=== PATIENT | male | born 1945 | race Caucasian/White ===

== ENCOUNTER 2017-08-07 08:51 | Emergency (ER) | payer MEDICARE, BC ==
[2017-08-07 09:06] VITALS: BP 153/74
[2017-08-07] MEDS ORDERED: Sodium Chloride 0.9% 1,000 ML IV SCH (09:30)
[2017-08-07] MEDS ORDERED: Ondansetron 4 MG/2 ML SDV IVPUSH ONE (09:30)
[2017-08-07] MEDS ORDERED: Sodium Chloride 0.9% 10 ML Syringe FLUSH PRN (09:30)
--- NOTE | 2017-08-07 09:48 | EDM.PDOC ---
ED HPI GENERAL MEDICAL PROBLEM - General Chief Complaint: Back Pain or Injury Stated Complaint: POSSIBLE KINDNEY STONE OR INFECTION Time Seen by Provider: 08/07/17 09:19 Source of Information: Reports: Patient History Limitations: Reports: No Limitations - History of Present Illness INITIAL COMMENTS - FREE TEXT/NARRATIVE: The patient presents with left flank pain. This has been going on for about 1 week. The pain does not radiate anywhere. He has some nausea with it but he does not have any vomiting. He has no dysuria or hematuria. He has had kidney stones before but he says this feels different. He is lightheaded at times and he has a subjective fever and chills. He has decreased appetite. He denies chest pain or shortness of breath. Onset: Gradual Duration: Week(s): (1) Location: Reports: Back (Left flank) Quality: Reports: Sharp Severity: Mild Improves with: Reports: None Worsens with: Reports: None Associated Symptoms: Reports: Fever/Chills, Nausea/Vomiting. Denies: Chest Pain , Shortness of Breath Treatments CERTIFIED MORTICIAN: Reports: Other (see below) Other Treatments CERTIFIED MORTICIAN: oxycodone Left Flank Pain Score (Numeric/FACES): 9 - Related Data Allergies Allergy/AdvReac Type Severity Reaction Status Date / Time Sulfa (Sulfonamide Allergy Rash Verified 08/07/17 09:44 Antibiotics) Home Meds: Home Meds oxyCODONE HCl/Acetaminophen [Percocet 5-325 mg Tablet] 1 - 2 each PO Q4H PRN # 24 tablet 02/10/16 [Rx] Aspirin [Ecotrin] 81 mg PO DAILY 02/15/16 [History] Clopidogrel [Plavix] 75 mg PO DAILY 02/15/16 [History] Metoprolol Succinate 200 mg PO DAILY 02/15/16 [History] Ramipril 10 mg PO DAILY 02/15/16 [History] amLODIPine [Norvasc] 5 mg PO DAILY 02/15/16 [History] atorvaSTATin Calcium [Atorvastatin Calcium] 80 mg PO DAILY 02/15/16 [History] Omeprazole Magnesium [Prilosec Otc] 20 mg PO DAILY 03/16/16 [History] Tamsulosin [Flomax] 0.4 mg PO DAILY 03/16/16 [History] Finasteride [Proscar] 5 mg PO DAILY 10/10/17 [History] Past Medical History HEENT History: Reports: Impaired Vision, Other (See Below) Other HEENT History: wears glasses Cardiovascular History: Reports: Hypertension Respiratory History: Reports: Sleep Apnea Gastrointestinal History: Reports: Chronic Constipation, GERD, Other (See Below) Other Gastrointestinal History: abnormal liver ultrasound, increased bilirubin Genitourinary History: Reports: Renal Calculus Neurological History: Reports: Other (See Below) Other Neuro History: bain's palsy Psychiatric History: Reports: Other (See Below) Other Psychiatric History: insomnia - Past Surgical History Cardiovascular Surgical History: Reports: Coronary Artery Stent Male Surgical History: Reports: Lithotripsy (ESWL), Ureteral Stent Social & Family History - Family History Family Medical History: Noncontributory - Tobacco Use Smoking Status *Q: Never Smoker - Caffeine Use Caffeine Use: Reports: Coffee, Soda - Recreational Drug Use Recreational Drug Use: No - Living Situation & Occupation Living situation: Reports: Occupation: Retired ED ROS GENERAL - Review of Systems Review Of Systems: See Below Constitutional: Reports: Fever, Chills HEENT: Reports: No Symptoms Respiratory: Reports: No Symptoms Cardiovascular: Reports: Lightheadedness. Denies: Chest Pain Endocrine: Reports: No Symptoms GI/Abdominal: Reports: Nausea. Denies: Abdominal Pain, Diarrhea, Vomiting : Reports: No Symptoms Musculoskeletal: Reports: No Symptoms ED EXAM,LOWER BACK PAIN/INJURY - Physical Exam Exam: See Below Exam Limited By: No Limitations General Appearance: Alert, No Apparent Distress Ears: Normal External Exam Nose: Normal Inspection Head: Atraumatic, Normocephalic Neck: Normal Inspection Respiratory/Chest: No Respiratory Distress, Lungs Clear, Normal Breath Sounds Cardiovascular: Regular Rate, Rhythm, No Edema, No Murmur GI/Abdominal: Soft, Non-Tender, No Organomegaly, No Mass Back Exam: Other (No CVA tenderness) Extremities: Normal Inspection Course - Vital Signs Last Recorded V/S: Last Vital Signs Temp 97.4 F 08/07/17 08:58 Pulse 66 08/07/17 08:58 Resp 12 08/07/17 08:58 BP 153/74 H 08/07/17 08:58 Pulse Ox 99 08/07/17 08:58 - Orders/Labs/Meds Orders: Active Orders 24 hr Category Date Time Status Peripheral IV Care [RC] . DIRECTED Care 08/07/17 09:31 Active Sodium Chloride 0.9% [Normal Saline] 1,000 ml Med 08/07/17 09:30 Active IV ASDIRECTED Sodium Chloride 0.9% [Saline Flush] Med 08/07/17 09:30 Active 10 ml FLUSH ASDIRECTED PRN ED Antiemetic Medication Reflex [OM.PC] Stat Oth 08/07/17 09:30 Ordered Peripheral IV Insertion Adult [OM.PC] Stat Oth 08/07/17 09:30 Ordered Medication Orders Sodium Chloride (Normal Saline) 1,000 mls @ 125 mls/hr IV ASDIRECTED KEATON Last Admin: 08/07/17 10:05 Dose: 125 mls/hr Sodium Chloride (Saline Flush) 10 ml FLUSH ASDIRECTED PRN PRN Reason: Keep Vein Open Last Admin: 08/07/17 10:05 Dose: 10 ml Labs: Laboratory Tests 08/07/17 08/07/17 08/07/17 Range/Units 09:05 09:05 11:05 WBC 6.33 (4.23-9.07) K/mm3 RBC 4.50 L (4.63-6.08) M/mm3 Hgb 14.6 (13.7-17.5) gm/L Hct 42.4 (40.1-51.0) % MCV 94.2 H (79.0-92.2) fl MCH 32.4 H (25.7-32.2) pg MCHC 34.4 (32.2-35.5) g/dl RDW Std Deviation 45.2 H (35.1-43.9) fL Plt Count 127 L (163-337) K/mm3 MPV 10.3 (9.4-12.3) fl Neut % (Auto) 73.6 H (34.0-67.9) % Lymph % (Auto) 11.7 L (21.8-53.1) % Carbon % (Auto) 13.6 H (5.3-12.2) % Eos % (Auto) 0.6 L (0.8-7.0) Baso % (Auto) 0.2 (0.1-1.2) % Neut # (Auto) 4.66 (1.78-5.38) K/mm3 Lymph # (Auto) 0.74 L (1.32-3.57) K/mm3 Carbon # (Auto) 0.86 H (0.30-0.82) K/mm3 Eos # (Auto) 0.04 (0.04-0.54) K/mm3 Baso # (Auto) 0.01 (0.01-0.08) K/mm3 Sodium 140 (136-145) mEq/L Potassium 4.0 (3.5-5.1) mEq/L Chloride 102 (98-107) mEq/L Carbon Dioxide 27 (21-32) mEq/L Anion Gap 15.0 (5-15) BUN 13 (7-18) mg/dL Creatinine 1.4 H (0.7-1.3) mg/dL Est Cr Clr Drug Dosing 44.59 mL/min Estimated GFR (MDRD) 50 (>60) mL/min BUN/Creatinine Ratio 9.3 L (14-18) Glucose 130 H (83-115) mg/dL Calcium 9.0 (8.5-10.1) mg/dL Total Bilirubin 7.1 H (0.2-1.0) mg/dL AST 27 (15-37) U/L ALT 32 (16-63) U/L Alkaline Phosphatase 113 (46-116) U/L Total Protein 7.0 (6.4-8.2) g/dl Albumin 4.1 (3.4-5.0) g/dl Globulin 2.9 gm/dL Albumin/Globulin Ratio 1.4 (1-2) Lipase 135 (73-393) U/L Urine Color Yellow (Yellow) Urine Appearance Clear (Clear) Urine pH 6.0 (5.0-8.0) Ur Specific [place] 1.020 (1.005-1.030) Urine Protein Negative (Negative) Urine Glucose (UA) Negative (Negative) Urine Ketones Negative (Negative) Urine Occult Blood Negative (Negative) Urine Nitrite Negative (Negative) Urine Bilirubin Negative (Negative) Urine Urobilinogen 1.0 (0.2-1.0) Ur Leukocyte Esterase Negative (Negative) Urine RBC Not seen (0-5) /hpf Urine WBC 0-5 (0-5) /hpf Ur Epithelial Cells 0-5 (0-5) /hpf Urine Bacteria Few (FEW) /hpf Urine Mucus Many H (FEW) /hpf Meds: Medications Generic Name Dose Route Start Last Admin Trade Name Freq PRN Reason Stop Dose Admin Sodium Chloride 1,000 mls @ 125 mls/hr 08/07/17 09:30 08/07/17 10:05 Normal Saline IV 125 mls/hr ASDIRECTED KEATON Administration Sodium Chloride 10 ml 08/07/17 09:30 08/07/17 10:05 Saline Flush FLUSH 10 ml ASDIRECTED PRN Administration Keep Vein Open Discontinued Medications Generic Name Dose Route Start Last Admin Trade Name Alfonso PRN Reason Stop Dose Admin Ondansetron HCl 4 mg 08/07/17 09:30 08/07/17 10:08 Zofran IVPUSH 08/07/17 09:31 4 mg ONETIME ONE Administration - Re-Assessments/Exams Free Text/Narrative Re-Assessment/Exam: 08/07/17 09:49 I ordered an IV NS at 125mL/hr, zofran 4mg IV, labs, UA and a CT of his abdomen and pelvis. 08/07/17 12:55 His CBC looks good. His creatinine was elevated slightly at 1.4. His glucose was elevated at 130. His UA shows no UTI. His CT shows a nonobstructing calculi within the right kidney. No ureteral dilatation or ureteral stone is seen on either side. 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 Stable cyst within the left kidney measuring 6.7cm. Spleen length is generous at 15.5cm which is stable back to CT exam of 01/17/16. Nothing acute is appreciated on noncontrast CT study of the abdomen and pelvis. He feels better. This appears to be muscle pain. I will discharge him home. Departure - Departure Time of Disposition: 13:10 Disposition: Home, Self-Care 01 Condition: Good Clinical Impression: Back pain Qualifiers: Back pain location: low back pain Chronicity: acute Back pain laterality: left Sciatica presence: without sciatica Qualified Code(s): M54.5 - Low back pain - Discharge Information Referrals: PCP,None [Primary Care Provider] - Gladis Smith PA [Physician Product Sales Engineer] - 1 Week Forms: ED Department Discharge Additional Instructions: Take your medicine as prescribed. Follow up with Gladis Smith in our clinic in 1 week. Please return if you are worse. - My Orders Last 24 Hours: My Active Orders 08/07/17 09:30 Sodium Chloride 0.9% [Normal Saline] 1,000 ml IV ASDIRECTED Sodium Chloride 0.9% [Saline Flush] 10 ml FLUSH ASDIRECTED PRN ED Antiemetic Medication Reflex [OM.PC] Stat Peripheral IV Insertion Adult [OM.PC] Stat 08/07/17 09:31 Peripheral IV Care [RC] . DIRECTED - Assessment/Plan Last 24 Hours: My Active Orders 08/07/17 09:30 Sodium Chloride 0.9% [Normal Saline] 1,000 ml IV ASDIRECTED Sodium Chloride 0.9% [Saline Flush] 10 ml FLUSH ASDIRECTED PRN ED Antiemetic Medication Reflex [OM.PC] Stat Peripheral IV Insertion Adult [OM.PC] Stat 08/07/17 09:31 Peripheral IV Care [RC] . DIRECTED
--- NOTE | 2017-08-07 11:03 | CT ---
CT abdomen and pelvis Technique: Multiple axial sections were obtained from above the dome of the diaphragm inferiorly through the pubic symphysis. Intravenous and oral contrast not utilized. Study has been performed as a ureteral stone protocol. Comparison: Previous CT abdomen and pelvis exam of 02/10/16. Findings: Right kidney shows multiple nonobstructing calculi. Largest nonobstructing calculi on the right side measures approximately 4 mm. Left kidney shows no obstructing calculi. Left kidney shows a cyst measuring 6.7 cm. No ureteral dilatation is seen on either side. No ureteral calculi are seen on either side. Small portion of the visualized lung bases shows nothing acute. Noncontrast appearance of the liver and spleen appear within normal limits. Spleen is generous in size with length of 15.5 cm. This measurement appears as a stable finding back to CT study of 01/17/16. Left adrenal mass is identified. This has negative Hounsfield unit measurements compatible with benign adenoma measuring about 2.6 cm in size. Right adrenal gland is unremarkable. Pancreas is within normal limits. Gallbladder shows no calcified gallstones. Aorta shows atherosclerotic calcification without aneurysmal dilatation. No mesenteric abnormalities are seen. No pelvic mass or adenopathy is seen. No free fluid or inflammatory change is seen. Bone window settings were reviewed which shows mild scattered degenerative change within the spine. Impression: 1. Nonobstructing calculi within the right kidney. No ureteral dilatation or ureteral stone is seen on either side. 2. 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 3. Stable cyst within the left kidney measuring 6.7 cm. 4. Spleen length is generous at 15.5 cm which is stable back to CT exam of 01/17/16. 5. Nothing acute is appreciated on noncontrast CT study of the abdomen and pelvis. Diagnostic code #3
== END 2017-08-07 13:36 | disposition home or self-care (01) ==
LOC: JD.ED 08:51
DX: M54.5 Low back pain (principal); N20.0 Calculus of kidney; I10 Essential (primary) hypertension; G47.30 Sleep apnea, unspecified; K21.9 Gastro-esophageal reflux disease without esophagitis; Z95.5 Presence of coronary angioplasty implant and graft; Z96.0 Presence of urogenital implants; Z98.890 Other specified postprocedural states; Z79.82 Long term (current) use of aspirin; Z79.02 Long term (current) use of antithrombotics/antiplatelets; Z79.899 Other long term (current) drug therapy; Z88.2 Allergy status to sulfonamides
CPT/HCPCS: 36415; 74176; 80053; 81001; 83690; 85025; 96361; 96374; 99284; J2405; J7040; J7050

== ENCOUNTER 2017-09-21 04:53 | Emergency (ER) | payer MEDICARE, BC ==
[2017-09-21 05:14] VITALS: BP 155/81
--- NOTE | 2017-09-21 08:02 | EDM.PDOC ---
ED HPI GENERAL MEDICAL PROBLEM - General Chief Complaint: Neuro Symptoms/Deficits Stated Complaint: LOSS OF FEELING IN HAND AND CONFUSED Time Seen by Provider: 09/21/17 08:06 - History of Present Illness INITIAL COMMENTS - FREE TEXT/NARRATIVE: 71-year-old male brought into the emergency room by his daughter was confusion. This was noticed about 3 hours ago the patient was having a hard time reaching for a light switch. He had questionable change in speech this was short-lived and that he seemed to get better but not quite to baseline. 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 The patient has had intermittent bouts of confusion in the past really the cause of this has never been identified. During this he did complain of a mild headache and he still has a mild headache. He has not had any vision changes no ringing or buzzing in his ears. Headache Pain Score (Numeric/FACES): 5 - Related Data Allergies Allergy/AdvReac Type Severity Reaction Status Date / Time Sulfa (Sulfonamide Allergy Rash Verified 08/07/17 09:44 Antibiotics) Home Meds: Home Meds Aspirin [Ecotrin] 81 mg PO DAILY 02/15/16 [History] Clopidogrel [Plavix] 75 mg PO DAILY 02/15/16 [History] Metoprolol Succinate 200 mg PO DAILY 02/15/16 [History] Ramipril 10 mg PO DAILY 02/15/16 [History] atorvaSTATin Calcium [Atorvastatin Calcium] 80 mg PO DAILY 02/15/16 [History] Omeprazole Magnesium [Prilosec Otc] 20 mg PO DAILY 03/16/16 [History] Past Medical History HEENT History: Reports: Impaired Vision, Other (See Below) Other HEENT History: wears glasses Cardiovascular History: Reports: Hypertension, Stents Respiratory History: Reports: Sleep Apnea Gastrointestinal History: Reports: Chronic Constipation, GERD, Other (See Below) Other Gastrointestinal History: abnormal liver ultrasound, increased bilirubin Genitourinary History: Reports: Renal Calculus Neurological History: Reports: Other (See Below) Other Neuro History: bain's palsy Psychiatric History: Reports: Other (See Below) Other Psychiatric History: insomnia - Past Surgical History Cardiovascular Surgical History: Reports: Coronary Artery Stent Male Surgical History: Reports: Lithotripsy (ESWL), Ureteral Stent Social & Family History - Family History Family Medical History: Noncontributory - Tobacco Use Smoking Status *Q: Never Smoker - Caffeine Use Caffeine Use: Reports: Coffee, Soda - Recreational Drug Use Recreational Drug Use: No - Living Situation & Occupation Living situation: Reports: Occupation: Retired ED ROS GENERAL - Review of Systems Review Of Systems: See Below Constitutional: Reports: No Symptoms. Denies: Fever, Chills HEENT: Reports: No Symptoms Respiratory: Reports: No Symptoms Cardiovascular: Reports: No Symptoms GI/Abdominal: Reports: No Symptoms. Denies: Abdominal Pain, Nausea, Vomiting : Reports: No Symptoms Musculoskeletal: Reports: No Symptoms, Other (He has his chronic left-sided leg weakness) Neurological: Reports: Confusion, Headache Psychiatric: Reports: No Symptoms ED EXAM, NEURO - Physical Exam Exam: See Below Exam Limited By: No Limitations General Appearance: Alert, No Apparent Distress, Other (Normal vitals other than a mildly elevated blood pressure he is alert and oriented) Eye Exam: Bilateral Eye: EOMI, Normal Inspection, PERRL Ears: Normal External Exam, Normal Canal, Hearing Grossly Normal, Normal TMs Nose: Normal Inspection, Normal Mucosa, No Blood Throat/Mouth: Normal Inspection, Normal Lips, Normal Gums, Normal Oropharynx, Normal Voice, No Airway Compromise Head Exam: Atraumatic, Normocephalic Neck: Normal Inspection, Supple, Non-Tender, Full Range of Motion. No: Lymphadenopathy (L), Lymphadenopathy (R) Respiratory/Chest: No Respiratory Distress, Lungs Clear, Normal Breath Sounds Cardiovascular: Regular Rate, Rhythm, No Edema, No Murmur GI/Abdominal: Normal Bowel Sounds, Soft, Non-Tender Neurological: Normal Mood/Affect, Other (He has weakness in his left lower extremity however he can hold it up against gravity and against some resistance right leg is normal right upper extremities are equal and appropriate in all muscle groups deep tendon reflexes the brachial radialis are equal and appropriate cranial nerves II through XII grossly intact. Basically this gentleman has a normal neurologic exam except for his chronic weakness in his left leg) Back Exam: Normal Inspection. No: CVA Tenderness (L), CVA Tenderness (R) Extremities: Normal Inspection, No Pedal Edema Psychiatric: Normal Affect, Normal Mood Course - Vital Signs Last Recorded V/S: Last Vital Signs Temp 36.2 C 09/21/17 05:05 Pulse 76 09/21/17 05:05 Resp 15 09/21/17 05:05 BP 155/81 H 09/21/17 05:05 Pulse Ox 98 09/21/17 05:05 - Orders/Labs/Meds Orders: Active Orders 24 hr Category Date Time Status EKG Documentation Completion [RC] ASDIRECTED Care 09/21/17 05:00 Active Chest 1V Frontal [CR] Stat Exams 09/21/17 06:02 Taken Head wo Cont [CT] Stat Exams 09/21/17 05:18 Taken Labs: Laboratory Tests 09/21/17 09/21/17 09/21/17 Range/Units 05:04 05:04 05:04 WBC 9.79 H (4.23-9.07) K/mm3 RBC 4.50 L (4.63-6.08) M/mm3 Hgb 14.7 (13.7-17.5) gm/L Hct 42.5 (40.1-51.0) % MCV 94.4 H (79.0-92.2) fl MCH 32.7 H (25.7-32.2) pg MCHC 34.6 (32.2-35.5) g/dl RDW Std Deviation 46.1 H (35.1-43.9) fL Plt Count 215 (163-337) K/mm3 MPV 11.0 (9.4-12.3) fl Neutrophils % (Manual) 77 H (40-60) % Band Neutrophils % 0 (0-10) % Lymphocytes % (Manual) 19 L (20-40) % Atypical Lymphs % 0 % Monocytes % (Manual) 3 (2-10) % Eosinophils % (Manual) 1 (0.8-7.0) % Basophils % (Manual) 0 L (0.2-1.2) Platelet Estimate Adequate Plt Morphology Comment Normal RBC Morph Comment Normal PT 10.8 (8.0-13.0) SECONDS INR 0.99 APTT 24 (22-36) SECONDS Sodium 137 (136-145) mEq/L Potassium 4.3 (3.5-5.1) mEq/L Chloride 102 (98-107) mEq/L Carbon Dioxide 26 (21-32) mEq/L Anion Gap 13.3 (5-15) BUN 16 (7-18) mg/dL Creatinine 1.3 (0.7-1.3) mg/dL Est Cr Clr Drug Dosing 48.02 mL/min Estimated GFR (MDRD) 54 (>60) mL/min BUN/Creatinine Ratio 12.3 L (14-18) Glucose 131 H (83-115) mg/dL POC Glucose (83-110) mg/dL Calcium 9.6 (8.5-10.1) mg/dL Total Bilirubin 3.2 H (0.2-1.0) mg/dL AST 25 (15-37) U/L ALT 37 (16-63) U/L Alkaline Phosphatase 91 (46-116) U/L Troponin I < 0.017 (0.00-0.056) ng/mL Total Protein 6.9 (6.4-8.2) g/dl Albumin 4.0 (3.4-5.0) g/dl Globulin 2.9 gm/dL Albumin/Globulin Ratio 1.4 (1-2) Urine Color (Yellow) Urine Appearance (Clear) Urine pH (5.0-8.0) Ur Specific [place] (1.005-1.030) Urine Protein (Negative) Urine Glucose (UA) (Negative) Urine Ketones (Negative) Urine Occult Blood (Negative) Urine Nitrite (Negative) Urine Bilirubin (Negative) Urine Urobilinogen (0.2-1.0) Ur Leukocyte Esterase (Negative) Urine RBC (0-5) /hpf Urine WBC (0-5) /hpf Ur Epithelial Cells (0-5) /hpf Urine Bacteria (FEW) /hpf Urine Mucus (FEW) /hpf 09/21/17 09/21/17 Range/Units 05:05 06:41 WBC (4.23-9.07) K/mm3 RBC (4.63-6.08) M/mm3 Hgb (13.7-17.5) gm/L Hct (40.1-51.0) % MCV (79.0-92.2) fl MCH (25.7-32.2) pg MCHC (32.2-35.5) g/dl RDW Std Deviation (35.1-43.9) fL Plt Count (163-337) K/mm3 MPV (9.4-12.3) fl Neutrophils % (Manual) (40-60) % Band Neutrophils % (0-10) % Lymphocytes % (Manual) (20-40) % Atypical Lymphs % % Monocytes % (Manual) (2-10) % Eosinophils % (Manual) (0.8-7.0) % Basophils % (Manual) (0.2-1.2) Platelet Estimate Plt Morphology Comment RBC Morph Comment PT (8.0-13.0) SECONDS INR APTT (22-36) SECONDS Sodium (136-145) mEq/L Potassium (3.5-5.1) mEq/L Chloride (98-107) mEq/L Carbon Dioxide (21-32) mEq/L Anion Gap (5-15) BUN (7-18) mg/dL Creatinine (0.7-1.3) mg/dL Est Cr Clr Drug Dosing mL/min Estimated GFR (MDRD) (>60) mL/min BUN/Creatinine Ratio (14-18) Glucose (83-115) mg/dL POC Glucose 132 H (83-110) mg/dL Calcium (8.5-10.1) mg/dL Total Bilirubin (0.2-1.0) mg/dL AST (15-37) U/L ALT (16-63) U/L Alkaline Phosphatase (46-116) U/L Troponin I (0.00-0.056) ng/mL Total Protein (6.4-8.2) g/dl Albumin (3.4-5.0) g/dl Globulin gm/dL Albumin/Globulin Ratio (1-2) Urine Color Light yellow (Yellow) Urine Appearance Clear (Clear) Urine pH 7.0 (5.0-8.0) Ur Specific [place] 1.020 (1.005-1.030) Urine Protein Negative (Negative) Urine Glucose (UA) Negative (Negative) Urine Ketones Negative (Negative) Urine Occult Blood Negative (Negative) Urine Nitrite Negative (Negative) Urine Bilirubin Negative (Negative) Urine Urobilinogen 0.2 (0.2-1.0) Ur Leukocyte Esterase Negative (Negative) Urine RBC 0-5 (0-5) /hpf Urine WBC 0-5 (0-5) /hpf Ur Epithelial Cells 0-5 (0-5) /hpf Urine Bacteria Rare (FEW) /hpf Urine Mucus Not seen (FEW) /hpf - Re-Assessments/Exams Free Text/Narrative Re-Assessment/Exam: 09/21/17 08:06 CT unremarkable EKG shows no acute changes chest x-ray unremarkable laboratory evaluation other than some mild hyperglycemia is non-suggestive. I discussed this with the patient and his daughter and told him I don't know what caused his confusion I cannot exclude a TIA. Did offer hospitalization however this is declined. They do agree to return to the emergency room with any questions or problems. Departure - Departure Time of Disposition: 08:07 Disposition: Home, Self-Care 01 Clinical Impression: Transient confusion - Discharge Information Referrals: Gladis Smith PA [Primary Care Provider] - Forms: ED Department Discharge Additional Instructions: Return to emergency room with any questions problems or worsening symptoms. Follow-up in the clinic on Sunday for recheck. Continue your routine medications. - My Orders Last 24 Hours: My Active Orders 09/21/17 05:00 EKG Documentation Completion [RC] ASDIRECTED 09/21/17 05:18 Head wo Cont [CT] Stat 09/21/17 06:02 Chest 1V Frontal [CR] Stat - Assessment/Plan Last 24 Hours: My Active Orders 09/21/17 05:00 EKG Documentation Completion [RC] ASDIRECTED 09/21/17 05:18 Head wo Cont [CT] Stat 09/21/17 06:02 Chest 1V Frontal [CR] Stat
--- NOTE | 2017-09-21 14:35 | CT ---
Head CT Technique: Multiple axial sections through the brain were obtained. Intravenous contrast was not utilized. Comparison: Previous head CT study of 01/01/16. Findings: Ventricles along with basal cisterns and sulci over the convexities are mildly prominent. Mild diminished density noted within the periventricular white matter. 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 No other abnormal parenchymal densities are seen. No evidence of intracranial hemorrhage. No midline shift or mass effect is seen. Bone window settings were reviewed which show no significant paranasal sinus finding. No acute calvarial abnormality is seen. Impression: 1. Mild senescent change as noted above. No acute intracranial abnormality is identified. Diagnostic code #2 I agree with preliminary report issued by [facility] ([facility] report finalized on 09/21/17, 6:37 AM Central Time)
--- NOTE | 2017-09-21 14:35 | CR ---
Chest: Portable view of the chest was obtained. Comparison: Prior chest x-ray of 08/30/17. Heart size is normal. Mild tortuosity of the thoracic aorta is seen. Lungs are clear. Minimal scoliosis is noted within the spine. Impression: 1. Nothing acute is identified on portable chest x-ray. Diagnostic code #2
== END 2017-09-21 08:27 | disposition home or self-care (01) ==
LOC: JD.ED 04:53
DX: R41.0 Disorientation, unspecified (principal); I10 Essential (primary) hypertension; K21.9 Gastro-esophageal reflux disease without esophagitis; Z79.02 Long term (current) use of antithrombotics/antiplatelets; Z79.82 Long term (current) use of aspirin; Z79.899 Other long term (current) drug therapy; Z88.2 Allergy status to sulfonamides
CPT/HCPCS: 36415; 70450; 70450-26; 71010; 71010-26; 80053; 81001; 82962; 84484; 85025; 85610; 85730; 93005; 93010; 99284; 99285-25

== ENCOUNTER 2019-08-24 08:05 | Emergency (ER) | payer MEDICARE, BC ==
[2019-08-24 08:12] VITALS: BP 195/94; PULSE 63
--- NOTE | 2019-08-24 08:14 | EDM.PDOC ---
ED HPI GENERAL MEDICAL PROBLEM - General Chief Complaint: Chest Pain Stated Complaint: WEAKNESS ARM TINGLE Time Seen by Provider: 08/24/19 08:13 Source of Information: Reports: Patient History Limitations: Reports: No Limitations - History of Present Illness INITIAL COMMENTS - FREE TEXT/NARRATIVE: 73-year-old male presents to the ED for evaluation of numbness and tingling in his upper extremities but also somewhat in his lower extremities this morning when he got up. It is now gone. He's been having intermittent central precordial chest pains off and on for the last 2 weeks often spontaneous at rest without any exertion. He has a known history of coronary disease having had one stent placed several years ago. 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 He remains on aspirin and Plavix daily. There is no true history to suggest exertional angina. Twice he knows he never had a problem with congestive failure. He states he has a chronic cough which he blames on his medication i.e. ANGELY inhibitor ramipril. Denies orthopnea or PND. Had a heart attack prior to stent placement. Is followed yearly by cardiology. He appreciates his blood pressures been elevated on the systolic component for the last couple of weeks. No associated vertigo or headache. By history denies any significant GERD symptoms no burping or belching to relieve the pressure discomfort. Denies really being short of breath on exertion. No recent prolonged travel history and no missing of his medications. Onset: Gradual (Intermittent problems with numbness and tingling in his upper extremities and lower extremities the last few days. Intermittent central precordial chest pains off and on for the last couple of weeks last the time at rest.) Onset Date: 08/10/19 Duration: Intermittent, Waxing/Waning (Symptoms seem to start a couple weeks ago and come intermittently. Central precordial chest discomfort.) Location: Reports: Chest (Central chest discomfort.), Other (Paresthesias upper and lower extremities at times.) Quality: Reports: Ache, Pressure (Pain is chest is described as a mild pressure 8 discomfort is to be quite fleeting.) Severity: Mild Improves with: Reports: None (He continues to keep working even though he develops chest discomfort but doesn't stop him in his tracks.) Worsens with: Reports: None Context: Denies: Activity, Exercise, Lifting, Sick Contact, Trauma, Other Associated Symptoms: Reports: Chest Pain (Nonproductive), Cough, Other ( Paresthesias hands and feet.). 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) (He did take all his daily meds today.) - Related Data Allergies Allergy/AdvReac Type Severity Reaction Status Date / Time Sulfa (Sulfonamide Allergy Rash Verified 08/24/19 08:12 Antibiotics) Home Meds: Home Meds Aspirin [Ecotrin EC] 325 mg PO DAILY 02/15/16 [History] Clopidogrel [Plavix] 75 mg PO DAILY 02/15/16 [History] Metoprolol Succinate 200 mg PO DAILY 02/15/16 [History] Ramipril 10 mg PO DAILY 02/15/16 [History] atorvaSTATin Calcium [Atorvastatin Calcium] 80 mg PO DAILY 02/15/16 [History] Finasteride 5 mg PO DAILY 08/24/19 [History] Omeprazole Magnesium [Prilosec] 20 mg PO DAILY 08/24/19 [History] amLODIPine Besylate [Norvasc] 10 mg PO DAILY #30 tablet 08/24/19 [Rx] amLODIPine [Norvasc] 5 mg PO DAILY 08/24/19 [History] Past Medical History HEENT History: Reports: Impaired Vision, Other (See Below) Other HEENT History: wears glasses Cardiovascular History: Reports: Hypertension, Stents (1 stent placed 16 years ago. Did not have a heart attack prior to stent placement.) Respiratory History: Reports: Sleep Apnea Gastrointestinal History: Reports: Chronic Constipation, GERD, Other (See Below) Other Gastrointestinal History: abnormal liver ultrasound, increased bilirubin Genitourinary History: Reports: Renal Calculus Neurological History: Reports: Other (See Below) Other Neuro History: bain's palsy Psychiatric History: Reports: Other (See Below) Other Psychiatric History: insomnia - Past Surgical History Cardiovascular Surgical History: Reports: Coronary Artery Stent Male Surgical History: Reports: Lithotripsy (ESWL), Ureteral Stent Social & Family History - Family History Family Medical History: Noncontributory - Caffeine Use Caffeine Use: Reports: Coffee, Soda - Living Situation & Occupation Living situation: Reports: Occupation: Retired ED ROS GENERAL - Review of Systems Review Of Systems: See Below Constitutional: Reports: Fatigue. Denies: Fever, Chills, Malaise, Weakness, Decreased Appetite, Weight Loss HEENT: Reports: Glasses. Denies: Vertigo Respiratory: Reports: Cough (Nonproductive and chronic.). Denies: Shortness of Breath, Pleuritic Chest Pain, Sputum, Hemoptysis, Other Cardiovascular: Reports: Chest Pain, Blood Pressure Problem (Intermittent problems with left precordial chest discomfort.), Dyspnea on Exertion. Denies: Claudication ( Systolic hypertension as of late.), Edema, Lightheadedness, Orthopnea, Palpitations (Sometimes) Endocrine: Reports: Fatigue GI/Abdominal: Reports: No Symptoms ( ST component of hiatal hernia.), Abdominal Pain (Upper abdominal pressure discomfort at times.), Nausea (Often gets nausea when he bends over.) : Reports: Frequency, Other (Nocturia 2 or 3.) Musculoskeletal: Reports: Back Pain, Joint Pain (Knees and hips at times occasionally neck as well.) Skin: Reports: No Symptoms Neurological: Reports: Paresthesia (Some paresthesias in both arms and hands as well as his lower extremities today suggesting an anxiety component to his illness. The symptoms resolved prior to coming to the ED.) Psychiatric: Reports: Anxiety Hematologic/Lymphatic: Reports: No Symptoms Immunologic: Reports: No Symptoms ED EXAM, GENERAL - Physical Exam Exam: See Below Exam Limited By: No Limitations General Appearance: Alert, WD/WN, Anxious, Mild Distress, Other (Temperatures 36.9. Heart rate was 63 and sinus perspective he was 12 sats are 98% on room air BP is elevated at 195/94 he came down to 1 [phone] while he was in the room.) Eye Exam: Bilateral Eye: Normal Fundi, Normal Inspection Throat/Mouth: Normal Inspection, Normal Lips, Normal Teeth, Normal Oropharynx Head: Atraumatic, Normocephalic Neck: Normal Inspection, Supple, Non-Tender, Full Range of Motion. No: Lymphadenopathy (L), Lymphadenopathy (R) Respiratory/Chest: No Respiratory Distress, Lungs Clear, Normal Breath Sounds, No Accessory Muscle Use, Chest Non-Tender Cardiovascular: Normal Peripheral Pulses, Regular Rate, Rhythm, No Edema, No Gallop, No JVD, No Murmur, No Rub Peripheral Pulses: 2+: Carotid (L), Carotid (R), Posterior Tibial (L), Posterior Tibial (R), Dorsalis Pedis (L), Dorsalis Pedis (R) GI/Abdominal: Normal Bowel Sounds, Soft, Non-Tender, No Organomegaly, No Abnormal Bruit, No Mass, Pelvis Stable Back Exam: Normal Inspection, Full Range of Motion. No: CVA Tenderness (L), CVA Tenderness (R) Extremities: Normal Inspection, Normal Range of Motion, Non-Tender, No Pedal Edema Neurological: Alert, Oriented, CN II-XII Intact, Normal Cognition, Normal Gait, Normal Reflexes, No Motor/Sensory Deficits, Other (Plus brachial radialis bilaterally. 1+ biceps bilaterally. 2+ patellar jerks. Absence of reflexes at the ankle.) Psychiatric: Normal Mood, Anxious Skin Exam: Warm, Dry, Intact, Normal Color, No Rash EKG INTERPRETATION EKG Date: 08/24/19 Time: 08:10 Rhythm: NSR Rate (Beats/Min): 61 [place]: LAD-Left [place] Deviation (Mild left axis deviation of -9.) P-Wave: Present QRS: Other (There is early R-wave transition in V2 suggesting right ventricular hypertrophy/septal hypertrophy pattern. There is a near Q-wave in 3 and aVF. Cannot rule out an old inferior wall myocardial infarction. Tall R-wave in lead V1 suggests left ventricular hypertrophy pattern.) ST-T: Other (T-wave flattening in lead 3 nonspecific finding) EKG Interpretation Comments: Abnormal ECG Course - Vital Signs Last Recorded V/S: Last Vital Signs Temp 36.9 C 08/24/19 08:08 Pulse 63 08/24/19 08:08 Resp 12 08/24/19 08:08 BP 195/94 H 08/24/19 08:08 Pulse Ox 98 08/24/19 08:08 - Orders/Labs/Meds Orders: Active Orders 24 hr Category Date Time Status EKG Documentation Completion [RC] ASDIRECTED Care 08/24/19 08:18 Active EKG Documentation Completion [RC] STAT Care 08/24/19 08:26 Active Chest 1V Frontal [CR] Stat Exams 08/24/19 08:26 Taken VITAMIN B12 [CHEM] Stat Lab 08/24/19 09:34 Ordered Dextrose 5%-0.9% NaCl [Dextrose 5%-Normal Saline] 1,000 Med 08/24/19 08:30 Active ml IV ASDIRECTED EKG 12 Lead [EK] Stat Ther 08/24/19 08:18 Ordered Medication Orders Dextrose/Sodium Chloride (Dextrose 5%-Normal Saline) 1,000 mls @ 100 mls/hr IV ASDIRECTED KEATON Last Admin: 08/24/19 08:48 Dose: 100 mls/hr Labs: Laboratory Tests 08/24/19 08/24/19 08/24/19 Range/Units 08:10 08:10 08:10 WBC 7.82 (4.23-9.07) K/mm3 RBC 4.74 (4.63-6.08) M/mm3 Hgb 15.5 (13.7-17.5) gm/dl Hct 44.8 (40.1-51.0) % MCV 94.5 H (79.0-92.2) fl MCH 32.7 H (25.7-32.2) pg MCHC 34.6 (32.2-35.5) g/dl RDW Std Deviation 45.6 H (35.1-43.9) fL Plt Count 170 (163-337) K/mm3 MPV 10.5 (9.4-12.3) fl Neut % (Auto) 66.2 (34.0-67.9) % Lymph % (Auto) 21.9 (21.8-53.1) % [place] % (Auto) 9.8 (5.3-12.2) % Eos % (Auto) 1.3 (0.8-7.0) Baso % (Auto) 0.3 (0.1-1.2) % Neut # (Auto) 5.18 (1.78-5.38) K/mm3 Lymph # (Auto) 1.71 (1.32-3.57) K/mm3 [place] # (Auto) 0.77 (0.30-0.82) K/mm3 Eos # (Auto) 0.10 (0.04-0.54) K/mm3 Baso # (Auto) 0.02 (0.01-0.08) K/mm3 PT 11.2 (9.7-12.0) SECONDS INR 1.03 APTT 25 (22-31) SECONDS Sodium 141 (136-145) mEq/L Potassium 4.1 (3.5-5.1) mEq/L Chloride 105 (98-107) mEq/L Carbon Dioxide 30 (21-32) mEq/L Anion Gap 10.1 (5-15) BUN 13 (7-18) mg/dL Creatinine 1.2 (0.7-1.3) mg/dL Est Cr Clr Drug Dosing 50.49 mL/min Estimated GFR (MDRD) 59 (>60) mL/min BUN/Creatinine Ratio 10.8 L (14-18) Glucose 118 H (83-115) mg/dL Calcium 9.3 (8.5-10.1) mg/dL Magnesium (1.8-2.4) mg/dl Total Bilirubin 3.3 H (0.2-1.0) mg/dL AST 23 (15-37) U/L ALT 41 (16-63) U/L Alkaline Phosphatase 119 H (46-116) U/L Troponin I < 0.017 (0.00-0.056) ng/mL C-Reactive Protein (<1.0) mg/dL NT-Pro-B Natriuret Pep (0-125) pg/mL Total Protein 7.3 (6.4-8.2) g/dl Albumin 4.1 (3.4-5.0) g/dl Globulin 3.2 gm/dL Albumin/Globulin Ratio 1.3 (1-2) TSH 3rd Generation (0.358-3.74) uIU/mL 08/24/19 08/24/19 Range/Units 08:10 08:10 WBC (4.23-9.07) K/mm3 RBC (4.63-6.08) M/mm3 Hgb (13.7-17.5) gm/dl Hct (40.1-51.0) % MCV (79.0-92.2) fl MCH (25.7-32.2) pg MCHC (32.2-35.5) g/dl RDW Std Deviation (35.1-43.9) fL Plt Count (163-337) K/mm3 MPV (9.4-12.3) fl Neut % (Auto) (34.0-67.9) % Lymph % (Auto) (21.8-53.1) % [place] % (Auto) (5.3-12.2) % Eos % (Auto) (0.8-7.0) Baso % (Auto) (0.1-1.2) % Neut # (Auto) (1.78-5.38) K/mm3 Lymph # (Auto) (1.32-3.57) K/mm3 [place] # (Auto) (0.30-0.82) K/mm3 Eos # (Auto) (0.04-0.54) K/mm3 Baso # (Auto) (0.01-0.08) K/mm3 PT (9.7-12.0) SECONDS INR APTT (22-31) SECONDS Sodium (136-145) mEq/L Potassium (3.5-5.1) mEq/L Chloride (98-107) mEq/L Carbon Dioxide (21-32) mEq/L Anion Gap (5-15) BUN (7-18) mg/dL Creatinine (0.7-1.3) mg/dL Est Cr Clr Drug Dosing mL/min Estimated GFR (MDRD) (>60) mL/min BUN/Creatinine Ratio (14-18) Glucose (83-115) mg/dL Calcium (8.5-10.1) mg/dL Magnesium 1.9 (1.8-2.4) mg/dl Total Bilirubin (0.2-1.0) mg/dL AST (15-37) U/L ALT (16-63) U/L Alkaline Phosphatase (46-116) U/L Troponin I (0.00-0.056) ng/mL C-Reactive Protein < 0.2 (<1.0) mg/dL NT-Pro-B Natriuret Pep 193 H (0-125) pg/mL Total Protein (6.4-8.2) g/dl Albumin (3.4-5.0) g/dl Globulin gm/dL Albumin/Globulin Ratio (1-2) TSH 3rd Generation 1.734 (0.358-3.74) uIU/mL Meds: Medications Generic Name Dose Route Start Last Admin Trade Name Freq PRN Reason Stop Dose Admin Dextrose/Sodium Chloride 1,000 mls @ 100 mls/hr 08/24/19 08:30 08/24/19 08:48 Dextrose 5%-Normal Saline IV 100 mls/hr ASDIRECTED KEATON Administration - Radiology Interpretation Free Text/Narrative:: 73-year-old male attends the ED primarily due to waking up with numbness and tingling in his arms and hands and his feet. This is happened on multiple occasions over the last couple weeks. Susman having intermittent left precordial chest pains that come and go. He has a known history of coronary disease. His concern is whether or not he is having any heart issues. Of note the patient is maintained on aspirin and Plavix since having stent placement 16 years ago. This morning was feeling weak associate with the numbness and tingling but this is now gone when he presents to the ED. Some clear. ECG shows no signs of acute ischemic change. Chest x-ray routine labs to be performed. - Re-Assessments/Exams Free Text/Narrative Re-Assessment/Exam: 08/24/19 08:43 portable chest x-ray reveals moderate cardiomegaly. Prominence of both left and right pulmonary arteries appreciated. There does not appear to be any significant vascular congestion. No pleural effusions. No lung infiltrates. 08/24/19 09:21 Labs reveal a normal white count at 7.82. The auto differential shows 66.2% neutrophils. Hemoglobin is 15.5 with a hematocrit of 44.8. MCV is slightly elevated at 94.5. PT is 11.2 with an INR 1.03. PTT is 25. Sodium 141 with potassium of 4.1. Chloride 105 bicarbonate 30. And a gap is 10.1. BUN is 13 with a creatinine of 1.2. Estimated GFR is 59. Glucose is 118 calcium is 9.3. Magnesium 1.9 total bilirubin is elevated at 3.3 AST is 23 with an ALT of 41 alkaline phosphatase days is 119 minimally elevated. 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 Troponin I is less than 0.017. C-reactive protein is less than 0.2. BNP is 193. Slightly elevated. Total protein is 7.3 with an albumin fraction of 4.1. TSH is normal at 1.73. Departure - Departure Time of Disposition: 09:22 Disposition: Home, Self-Care 01 Reason for Transfer *Q: Other Condition: Fair Clinical Impression: Intermittent left-sided chest pain, Paresthesia of upper and lower extremities of both sides, Systolic essential hypertension Prescriptions: amLODIPine Besylate [Norvasc] 10 mg PO DAILY #30 tablet Instructions: Paresthesia, Nonspecific Chest Pain Referrals: Marlon Wilde PA-C [Primary Care Provider] - Forms: ED Department Discharge Additional Instructions: Evaluation in the emergency room this morning did not reveal any signs of heart related illness. If you continue to have intermittent left-sided chest pains however it would be prudent to have an ECG stress test carried out which could be done here in the department and ordered by Marlon Wilde. This should include a Lexiscan as part of the study. This would rule out any problems with further blockage of coronary artery since its been 16 years since her stent was placed. In regards to the numbness and tingling intermittently in the extremities this is almost always due to sensory nerves acting up. We see this most commonly in patients who have diabetes. However can happen in any age. I do note that you red blood cells are larger in size than normal suggesting he may have a vitamin B12 deficiency. Enough a vitamin B12 supplement likely through [employer] store and it should be 1000 g or 1 mg tablet once daily. I did order your B12 level and you can discuss this level and I will send the results to Marlon Wilde. Just arranging follow-up with him in the next few weeks. In regards to persistently elevated systolic blood pressure number suggest increasing her Norvasc from 5- 10 mg once daily to help take the workload off your heart. Therefore advised to 5 mg tablets until they're gone and then fill prescription for the Norvasc 10 mg tablet once daily to replace the 5. I have written a prescription in this regard. - My Orders Last 24 Hours: My Active Orders 08/24/19 08:18 EKG Documentation Completion [RC] ASDIRECTED EKG 12 Lead [EK] Stat 08/24/19 08:26 EKG Documentation Completion [RC] STAT Chest 1V Frontal [CR] Stat 08/24/19 08:30 Dextrose 5%-0.9% NaCl [Dextrose 5%-Normal Saline] 1,000 ml IV ASDIRECTED 08/24/19 09:34 VITAMIN B12 [CHEM] Stat - Assessment/Plan Last 24 Hours: My Active Orders 08/24/19 08:18 EKG Documentation Completion [RC] ASDIRECTED EKG 12 Lead [EK] Stat 08/24/19 08:26 EKG Documentation Completion [RC] STAT Chest 1V Frontal [CR] Stat 08/24/19 08:30 Dextrose 5%-0.9% NaCl [Dextrose 5%-Normal Saline] 1,000 ml IV ASDIRECTED 08/24/19 09:34 VITAMIN B12 [CHEM] Stat
[2019-08-24] MEDS ORDERED: Dextrose 5%-0.9% NaCl 1,000 ML IV SCH (08:30)
--- NOTE | 2019-08-24 16:15 | CR ---
Chest: Portable view of the chest was obtained. Comparison: Prior chest x-ray study of 09/21/17. Heart size is within normal limits for portable technique. Tortuous thoracic aorta is noted. Lungs are clear with no acute parenchymal change. Minimal scoliosis is noted within the spine. Impression: 1. Nothing acute is appreciated on portable chest x-ray. Diagnostic code #2
== END 2019-08-24 09:46 | disposition home or self-care (01) ==
LOC: JD.ED 08:05
DX: R07.9 Chest pain, unspecified (principal); R20.2 Paresthesia of skin; I10 Essential (primary) hypertension; K21.9 Gastro-esophageal reflux disease without esophagitis; Z88.2 Allergy status to sulfonamides; Z79.899 Other long term (current) drug therapy; Z79.82 Long term (current) use of aspirin
CPT/HCPCS: 36415; 71045; 80053; 82607; 83735; 83880; 84443; 84484; 85025; 85610; 85730; 86140; 93005; 96360; 99285; J7042; 93010

== ENCOUNTER 2021-04-02 13:35 | Emergency (ER) | payer MEDICARE, BC ==
--- NOTE | 2021-04-02 14:27 | EDM.PDOC ---
ED HPI GENERAL MEDICAL PROBLEM - General Chief Complaint: Lower Extremity Injury/Pain Stated Complaint: SWOLLEN R LEG Time Seen by Provider: 04/02/21 13:49 Source of Information: Reports: Patient History Limitations: Reports: No Limitations - History of Present Illness INITIAL COMMENTS - FREE TEXT/NARRATIVE: 75-year-old male presents emergency department with complaints of bruising and swelling noted to his right mid tibial area. The patient states that he bumped his quinn on a metal stair about 3 weeks ago. He noticed bruising and swelling to the area which has pretty much resolved however then approximately 1 weeks ago he bumped his quinn again. Denies any complaints of pain or difficulty walking. Main complaint is the bruising and swelling noted to the area. Of no te, the patient does take Plavix and aspirin daily. He denies any numbness or tingling to the right lower extremity. - Related Data Allergies Allergy/AdvReac Type Severity Reaction Status Date / Time No Known Allergies Allergy Verified 04/02/21 13:51 Home Meds: Home Meds Aspirin [Ecotrin EC] 325 mg PO DAILY 02/15/16 [History] Clopidogrel [Plavix] 75 mg PO DAILY 02/15/16 [History] Metoprolol Succinate 200 mg PO DAILY 02/15/16 [History] Ramipril 10 mg PO DAILY 02/15/16 [History] atorvaSTATin Calcium [Atorvastatin Calcium] 80 mg PO DAILY 02/15/16 [History] Finasteride 5 mg PO DAILY 08/24/19 [History] Omeprazole Magnesium [Prilosec] 20 mg PO DAILY 08/24/19 [History] amLODIPine Besylate [Norvasc] 10 mg PO DAILY #30 tablet 08/24/19 [Rx] amLODIPine [Norvasc] 5 mg PO DAILY 08/24/19 [History] Past Medical History HEENT History: Reports: Cataract, Impaired Vision, Other (See Below) Other HEENT History: wears glasses Cardiovascular History: Reports: Hypertension, Stents Respiratory History: Reports: Sleep Apnea Gastrointestinal History: Reports: Chronic Constipation, GERD, Other (See Below) Other Gastrointestinal History: abnormal liver ultrasound, increased bilirubin Genitourinary History: Reports: Renal Calculus Neurological History: Reports: Other (See Below) Other Neuro History: bain's palsy Psychiatric History: Reports: Other (See Below) Other Psychiatric History: insomnia - Past Surgical History Cardiovascular Surgical History: Reports: Coronary Artery Stent Other Cardiovascular Surgeries/Procedures: stents placed in 2002 GI Surgical History: Reports: Appendectomy, Colonoscopy Male Surgical History: Reports: Lithotripsy (ESWL), Ureteral Stent Social & Family History - Family History Family Medical History: No Pertinent Family History - Tobacco Use Tobacco Use Status *Q: Never Tobacco User Second Hand Smoke Exposure: No - Caffeine Use Caffeine Use: Reports: Coffee, Energy Drinks - Recreational Drug Use Recreational Drug Use: No - Living Situation & Occupation Living situation: Reports: Occupation: Retired Review of Systems - Review of Systems Review Of Systems: Comprehensive ROS is negative, except as noted in HPI. ED EXAM, GENERAL - Physical Exam Exam: See Below Exam Limited By: No Limitations General Appearance: Alert, WD/WN, No Apparent Distress Ears: Normal External Exam, Hearing Grossly Normal Nose: Normal Inspection Throat/Mouth: Normal Inspection, Normal Lips, Normal Voice, No Airway Compromise Head: Atraumatic Neck: Normal Inspection, Supple Respiratory/Chest: No Respiratory Distress, No Accessory Muscle Use Cardiovascular: Normal Peripheral Pulses, Regular Rate, Rhythm Peripheral Pulses: 2+: Dorsalis Pedis (L), Dorsalis Pedis (R) GI/Abdominal: No Distention (Male) Exam: Deferred Rectal (Males) Exam: Deferred Back Exam: Normal Inspection Extremities: Normal Range of Motion, Non-Tender, Normal Capillary Refill, Other (Soft tissue swelling noted to mid tibial area with associated bruising in various stages of healing. There is also swelling noted to the right ankle area with bruising.) Neurological: Alert, Oriented, Normal Cognition Psychiatric: Normal Affect, Normal Mood Skin Exam: Warm, Dry, Intact, No Rash, Ecchymosis (Right medial tibial area and right ankle area medial and lateral) Lymphatic: No Adenopathy Course - Vital Signs Text/Narrative:: Upon assessment, the patient does have bruising noted to the right middle tibial area. He does have an area of soft tissue swelling directly on the tibial area. It is approximately the size of a quarter. The area is not tender with palpation and it is soft. He does have some swelling noted to the right ankle anterior and posteriorly with bruising. He denies any difficulty walking or pain with ambulation. He states he has not been elevating the area or icing the area. Of note, the patient does take Plavix and aspirin daily. Discussed with the patient that I feel this is just soft tissue injury and swelling is associated with that however he does request that I order an x-ray. I have ordered an x-ray of the tib-fib. Last Recorded V/S: Last Vital Signs Temp 96.9 F 04/02/21 13:49 Pulse 73 04/02/21 13:49 Resp 18 04/02/21 13:49 BP 153/75 H 04/02/21 13:49 Pulse Ox 96 04/02/21 13:49 - Orders/Labs/Meds Orders: Active Orders 24 hr Category Date Time Status Tibia Fibula Rt [CR] Stat Exams 04/02/21 14:24 Taken - Re-Assessments/Exams Free Text/Narrative Re-Assessment/Exam: 04/02/21 14:51 X-ray was reviewed by myself and Dr. Donis, and there is no acute process appreciated. Formal radiologist report is pending. I have applied an Dalton wrap to the area and recommend that the patient go home and rest, ice the affected area 30 minutes at a time 3 times daily and use an Dalton wrap. Departure - Departure Time of Disposition: 14:52 Disposition: Home, Self-Care 01 Condition: Good Clinical Impression: Soft tissue injury of right lower leg Qualifiers: Encounter type: initial encounter Qualified Code(s): S89.91XA - Unspecified injury of right lower leg, initial encounter - Discharge Information Referrals: Marlon Wilde PA-C [Primary Care Provider] - Forms: ED Department Discharge Additional Instructions: You were seen in the emergency department today with complaints of injury to your right lower leg. X-ray was completed and there is no broken bones. I strongly believe that the swelling is due to you taking Plavix and aspirin and causing little microtears under your skin which causes the swelling. This should resolve however it is unknown when. Recommend that you keep the Dalton wrap in place during the daytime. Elevate your right leg is much as possible. May use an ice pack 30 minutes at a time 3 times a day. Should you develop warmth, redness, or pain to the area, do not hesitate returning to the emergency department. Recommend that you follow-up with your primary care physician in about a week for reevaluation. Sepsis Event Note (ED) - Evaluation Sepsis Screening Result: No Definite Risk - Focused Exam Vital Signs: Vital Signs Temp Pulse Resp BP Pulse Ox 04/02/21 13:49 96.9 F 73 18 153/75 H 96 - My Orders Last 24 Hours: My Active Orders 04/02/21 14:24 Tibia Fibula Rt [CR] Stat - Assessment/Plan Last 24 Hours: My Active Orders 04/02/21 14:24 Tibia Fibula Rt [CR] Stat
[2021-04-02 16:30] VITALS: BP 138/72; PULSE 64
--- NOTE | 2021-04-03 10:41 | CR ---
Right tibia and fibula Technique: AP and lateral views of the right tibia and fibula were obtained. Comparison: No prior tibia or fibula study is available, previous right knee exam of 08/14/17. Medial joint space narrowing is seen within the knee. Small calcification is noted of the distal fibula most likely old. No acute fracture or other abnormality is appreciated. Vascular calcification is noted. Impression: 1. Medial joint space narrowing. 2. Old calcification felt to be present off the inferior fibula. 3. Vascular calcification. Diagnostic code #2
== END 2021-04-02 15:30 | disposition home or self-care (01) ==
LOC: JD.ED 13:35
DX: S80.11XA Contusion of right lower leg, initial encounter (principal); I10 Essential (primary) hypertension; K21.9 Gastro-esophageal reflux disease without esophagitis; Z79.82 Long term (current) use of aspirin; Z79.02 Long term (current) use of antithrombotics/antiplatelets; Z79.899 Other long term (current) drug therapy; Z95.5 Presence of coronary angioplasty implant and graft; W22.8XXA Striking against or struck by other objects, initial encounter
CPT/HCPCS: 73590-26-RT; 73590-RT; 99283; 99283-25

== ENCOUNTER 2021-07-19 15:00 | Inpatient (IN) | payer MEDICARE, BC ==
--- NOTE | 2021-07-19 15:37 | EDM.PDOC ---
ED HPI GENERAL MEDICAL PROBLEM - General Chief Complaint: Respiratory Problem Stated Complaint: COVID + SOB Time Seen by Provider: 07/19/21 15:21 Source of Information: Reports: Patient History Limitations: Reports: No Limitations - History of Present Illness INITIAL COMMENTS - FREE TEXT/NARRATIVE: 75-year-old male presents to the ED with known Covid positive illness. He state d he developed fever, chills, headache and myalgia around July 06.. He believes he was tested on the and was positive. Of note he has never been vaccinated against COVID-19 he states he is lost a bit of his sense of smell. Sense of taste is fairly well retained. He has a paroxysmal cough minimally producing any sputum. No hemoptysis. Appetite has never gone away completely. It is certainly much less than normal. He was having diarrhea 1-3 times daily but none in the last 36 hours. He came to the ED today due to increasing shortness of breath. He was seen in the clinic yesterday with O2 sats of around 89% on room air today he is 81% on room air. Chest x-ray done yesterday apparently revealed bilateral Covid pneumonia. Patient is on Plavix 75 mg daily for 1 coronary artery stent in his heart. He denies any chest pains. No fever chills for about 5 days. Of note he was started on antibiotics yesterday for pneumonia. I believe this is doxycycline 100 mg twice daily and he also has Omnicef 300 mg twice daily and his bag of medications. Onset: Sudden Onset Date: 07/06/21 (He believes he first had symptoms on the evening of July 06 or .) Duration: Day(s):, Getting Worse Location: Reports: Chest (Increasing dyspnea even at rest. Severe with exertion.) Quality: Reports: Other Severity: Severe (Generalized weakness and shortness of breath even at rest) Improves with: Reports: Rest Worsens with: Reports: Movement (Worse with walking or movement.) Context: Reports: Other (COVID-19 illness). Denies: Activity, Exercise, Lifting, Sick Contact, Trauma Associated Symptoms: Reports: Cough (Rarely producing any sputum), Fever/Chills (Initially but not for the last for 5 days initially for the first 5 days of his illness but not recently), Headaches, Loss of Appetite, Malaise, Nausea/Vomiting, Shortness of Breath, Weakness (Rare nausea no vomiting), Other ( generalized weakness mild diarrhea but not for the last 36 hours). 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 - Related Data Allergies Allergy/AdvReac Type Severity Reaction Status Date / Time No Known Allergies Allergy Verified 07/19/21 18:27 Home Meds: Home Meds Aspirin [Ecotrin EC] 325 mg PO DAILY 02/15/16 [History] Clopidogrel [Plavix] 75 mg PO DAILY 02/15/16 [History] Metoprolol Succinate 100 mg PO DAILY 02/15/16 [History] Ramipril 10 mg PO DAILY 02/15/16 [History] atorvaSTATin Calcium [Atorvastatin Calcium] 80 mg PO DAILY 02/15/16 [History] Finasteride 5 mg PO DAILY 08/24/19 [History] Omeprazole Magnesium [Prilosec] 20 mg PO ASDIRECTED 08/24/19 [History] amLODIPine [Norvasc] 10 mg PO DAILY 08/24/19 [History] Benzonatate 1 - 2 tab PO Q8HR PRN 07/19/21 [History] Ondansetron [Zofran ODT] 4 mg PO Q6HR PRN 07/19/21 [History] dexAMETHasone [Dexamethasone] 4 mg PO DAILY 07/19/21 [History] Past Medical History HEENT History: Reports: Cataract, Impaired Vision, Other (See Below) Other HEENT History: wears glasses Cardiovascular History: Reports: Hypertension, Stents (He has [address] Remains on Plavix 75 mg daily) Respiratory History: Reports: Sleep Apnea Gastrointestinal History: Reports: Chronic Constipation, GERD, Other (See Below) Other Gastrointestinal History: abnormal liver ultrasound, increased bilirubin Genitourinary History: Reports: Renal Calculus Neurological History: Reports: Other (See Below) Other Neuro History: bain's palsy Psychiatric History: Reports: Other (See Below) Other Psychiatric History: insomnia - Infectious Disease History Infectious Disease History: Reports: Novel Coronavirus - Past Surgical History Cardiovascular Surgical History: Reports: Coronary Artery Stent Other Cardiovascular Surgeries/Procedures: stents placed in 2002 GI Surgical History: Reports: Appendectomy, Colonoscopy Male Surgical History: Reports: Lithotripsy (ES[facility]), Ureteral Stent Social & Family History - Family History Family Medical History: No Pertinent Family History - Tobacco Use Tobacco Use Status *Q: Never Tobacco User - Caffeine Use Caffeine Use: Reports: Coffee, Energy Drinks - Living Situation & Occupation Living situation: Reports: Occupation: Retired ED ROS GENERAL - Review of Systems Review Of Systems: See Below Constitutional: Reports: Malaise, Weakness, Fatigue, Decreased Appetite, Weight Loss. Denies: Fever, Chills HEENT: Reports: Glasses, Hearing Loss Respiratory: Reports: Shortness of Breath, Cough, Sputum (Rare sputum production if he does it is white in color). Denies: Wheezing, Pleuritic Chest Pain Cardiovascular: Reports: Blood Pressure Problem (Chronic hypertension), Dyspnea on Exertion. Denies: Chest Pain, Claudication, Edema, Lightheadedness, Orthopnea Endocrine: Reports: Fatigue GI/Abdominal: Reports: Diarrhea (Was having mild diarrhea 1-3 times daily but not for the last 36 hours), Decreased Appetite, Nausea. Denies: Vomiting (Occasional bouts of nausea) : Reports: Other (History of BPH. Urine is dark in color) Musculoskeletal: Reports: Back Pain, Joint Pain (Knees hips and neck at times) Skin: Reports: Bruising (Bruises easily since he is on aspirin and Plavix) Neurological: Reports: Headache, Difficulty Walking (Due to dyspnea), Weakness. Denies: Confusion, Dizziness, Numbness (With initial illness but not now), Syncope, Tingling Psychiatric: Reports: No Symptoms Hematologic/Lymphatic: Reports: No Symptoms Immunologic: Reports: No Symptoms ED EXAM, GENERAL - Physical Exam Exam: See Below Exam Limited By: No Limitations General Appearance: Alert, WD/WN, Moderate Distress (Tachypneic at rest. Breathing 30-32 times per minute), Other (Temperature is 36.4 degrees. Heart rate is 96 and sinus respiratory is 24 to 30/min with O2 sats of only 81% on room air. BP is 133/68) Eye Exam: Bilateral Eye: Normal Inspection (No blepharal pallor or scleral icterus), PERRL Ears: Normal External Exam, Normal Canal, Hearing Grossly Normal, Normal TMs Ear Exam: Bilateral Ear: Auricle Normal, Canal Normal, TM normal Nose: Normal Inspection, Normal Mucosa, No Blood Throat/Mouth: Normal Inspection, Normal Lips, Normal Oropharynx, Normal Voice Head: Atraumatic, Normocephalic Neck: Normal Inspection, Supple, Non-Tender, Full Range of Motion. No: Carotid Bruit Respiratory/Chest: Lungs Clear, Normal Breath Sounds, Chest Non-Tender, Respir atory Distress (Tachypnea at rest) Cardiovascular: Regular Rate, Rhythm, No Edema, No Gallop, No JVD, No Murmur, No Rub Peripheral Pulses: 2+: Carotid (L), Carotid (R), Posterior Tibial (L), Posterior Tibial (R), Dorsalis Pedis (L), Dorsalis Pedis (R) GI/Abdominal: Normal Bowel Sounds, Soft, Non-Tender, No Organomegaly, No Distention, No Abnormal Bruit, No Mass (Male) Exam: No Hernia Back Exam: Normal Inspection Extremities: Normal Inspection, Normal Range of Motion, Non-Tender, No Pedal Edema Neurological: Alert, Oriented, CN II-XII Intact, Normal Cognition, No Motor/Sensory Deficits Psychiatric: Normal Affect, Normal Mood Skin Exam: Warm, Dry, Intact, Normal Color, No Rash Lymphatic: No Adenopathy #1 Interpretation EKG Date: 07/19/21 Time: 16:00 Rhythm: NSR Rate (Beats/Min): 78 [place]: LAD-Left [place] Deviation (Mild left axis deviation of -12 degrees) P-Wave: Enlarged (Consider left atrial hypertrophy) QRS: Other (Early R wave transition consider right ventricle hypertrophy versus septal hypertrophy pattern tall R wave in lead I suggestive of left ventricular hypertrophy. Near Q waves in leads III and aVF consider old inferior wall myocardial infarction) QT: Prolonged (Mildly prolonged) EKG Interpretation Comments: Abnormal ECG Course - Vital Signs Last Recorded V/S: Last Vital Signs Temp 36.7 C 07/19/21 17:54 Pulse 93 07/19/21 17:54 Resp 20 07/19/21 17:54 BP 139/71 07/19/21 17:54 Pulse Ox 91 L 07/19/21 17:54 - Orders/Labs/Meds Orders: Active Orders 24 hr Category Date Time Status Patient Status [ADT] Routine ADT 07/19/21 16:58 Active Antiembolic Devices [RC] PER UNIT ROUTINE Care 07/19/21 17:01 Active Bedrest Bedside Commode [RC] ASDIRECTED Care 07/19/21 16:58 Active Cardiac Monitoring [RC] CONTINUOUS Care 07/19/21 17:00 Active Intake and Output [RC] 04,16 Care 07/19/21 17:00 Active Oxygen Therapy [RC] PRN Care 07/19/21 16:58 Active Pulse Oximetry [RC] CONTINUOUS Care 07/19/21 17:00 Active RT Aerosol Therapy [RC] ASDIRECTED Care 07/19/21 17:03 Active VTE/DVT Education [RC] PER UNIT ROUTINE Care 07/19/21 16:58 Active Vital Signs [RC] Q4HR Care 07/19/21 16:58 Active OT Evaluation and Treatment [CONS] Routine Cons 07/19/21 16:58 Active PT Evaluation and Treatment [CONS] Routine Cons 07/19/21 16:58 Active 2 Gram Sodium Diet [DIET] Diet 07/19/21 Dinner Active BLOOD CULTURE [MREF] Stat Lab 07/19/21 17:22 Received BLOOD CULTURE [MREF] Stat Lab 07/19/21 17:30 Received C-REACTIVE PROTEIN [CHEM] DAILY Lab 07/20/21 05:00 Ordered C-REACTIVE PROTEIN [CHEM] DAILY Lab 07/21/21 05:00 Ordered C-REACTIVE PROTEIN [CHEM] DAILY Lab 07/22/21 05:00 Ordered C-REACTIVE PROTEIN [CHEM] DAILY Lab 07/23/21 05:00 Ordered C-REACTIVE PROTEIN [CHEM] DAILY Lab 07/24/21 05:00 Ordered CBC WITH AUTO DIFF [HEME] DAILY Lab 07/20/21 05:00 Ordered CBC WITH AUTO DIFF [HEME] DAILY Lab 07/21/21 05:00 Ordered CBC WITH AUTO DIFF [HEME] DAILY Lab 07/22/21 05:00 Ordered CBC WITH AUTO DIFF [HEME] DAILY Lab 07/23/21 05:00 Ordered CBC WITH AUTO DIFF [HEME] DAILY Lab 07/24/21 05:00 Ordered COMPREHENSIVE METABOLIC PN,CMP [CHEM] DAILY Lab 07/20/21 05:00 Ordered COMPREHENSIVE METABOLIC PN,CMP [CHEM] DAILY Lab 07/21/21 05:00 Ordered COMPREHENSIVE METABOLIC PN,CMP [CHEM] DAILY Lab 07/22/21 05:00 Ordered COMPREHENSIVE METABOLIC PN,CMP [CHEM] DAILY Lab 07/23/21 05:00 Ordered COMPREHENSIVE METABOLIC PN,CMP [CHEM] DAILY Lab 07/24/21 05:00 Ordered RESPIRATORY CULT [MREF] Stat Lab 07/19/21 16:58 Ordered UA W/MICROSCOPIC [URIN] Routine Lab 07/19/21 16:58 Ordered Acetaminophen [TylenoL] Med 07/19/21 16:58 Active 650 mg PO Q6H PRN Albuterol/Ipratropium [DuoNeb 3.0-0.5 MG/3 ML] Med 07/19/21 16:58 Active 3 ml NEB Q4H PRN Aspirin [Halfprin] Med 07/20/21 09:00 Ordered 325 mg PO DAILY Cholecalciferol (Vitamin D3) [Vitamin D3] Med 07/20/21 09:00 Active 25 mcg PO DAILY Clopidogrel [Plavix] Med 07/20/21 09:00 Ordered 75 mg PO DAILY Doxycycline [Vibramycin] 100 mg Med 07/19/21 21:00 Active Sodium Chloride 0.9% [Normal Saline] 100 ml IV Q12HR Enoxaparin [Lovenox] Med 07/19/21 21:00 Ordered 40 mg SUBCUT BID Finasteride [Proscar] Med 07/20/21 09:00 Ordered 5 mg PO DAILY Melatonin Med 07/19/21 21:00 Active 3 mg PO BEDTIME Metoprolol Succinate [Metoprolol Succinate] Med 07/20/21 09:00 Ordered 200 mg PO DAILY Morphine Med 07/19/21 16:58 Active 2 mg IVPUSH Q4H PRN Omeprazole Magnesium [Prilosec] Med 07/20/21 09:00 Ordered 20 mg PO DAILY Promethazine [Phenergan] 12.5 mg Med 07/19/21 16:58 Active Sodium Chloride 0.9% [Normal Saline] 50 ml IV Q6H Ramipril Med 07/20/21 09:00 Ordered 10 mg PO DAILY Remdesivir 100 mg Med 07/20/21 17:00 Active Sodium Chloride 0.9% [Normal Saline] 100 ml IV Q24H Zinc Sulfate [Zincate] Med 07/19/21 18:00 Active 220 mg PO DAILY amLODIPine [Norvasc] Med 07/19/21 17:15 Pending 5 mg PO DAILY atorvaSTATin Calcium [Atorvastatin Calcium] Med 07/20/21 09:00 Ordered 80 mg PO DAILY cefTRIAXone [Rocephin] 2 gm Med 07/19/21 18:00 Active Sodium Chloride 0.9% [Normal Saline] 100 ml IV Q24H dexAMETHasone Med 07/20/21 09:00 Active 6 mg PO DAILY guaiFENesin [Robitussin] Med 07/19/21 17:12 Active 200 mg PO Q6H PRN hydrALAZINE [Apresoline] Med 07/19/21 17:13 Active 10 mg IVPUSH Q4H PRN oxyCODONE Med 07/19/21 16:58 Active 5 mg PO Q6H PRN Blood Culture x2 Reflex Set [OM.PC] Stat Oth 07/19/21 16:58 Ordered Sequential Compression Device [OM.PC] Per Unit Routine Oth 07/19/21 17:00 Ordered Resuscitation Status Routine Resus Stat 07/19/21 16:58 Ordered Medication Orders Acetaminophen (Acetaminophen 325 Mg Tab) 650 mg PO Q6H PRN PRN Reason: Pain (Mild 1-3)/fever Albuterol/Ipratropium (Albuterol/Ipratropium 3.0-0.5 Mg/3 Ml Neb Soln) 3 ml NEB Q4H PRN PRN Reason: Shortness Of Breath/wheezing Amlodipine Besylate (Amlodipine 5 Mg Tab) 5 mg PO DAILY [facility] Aspirin (Aspirin 81 Mg Tab.Ec) 325 mg PO DAILY [facility] Cholecalciferol (Cholecalciferol (Vitamin D3) 25 Mcg Tab) 25 mcg PO DAILY [facility] Clopidogrel Bisulfate (Clopidogrel 75 Mg Tab) 75 mg PO DAILY [facility] Dexamethasone (Dexamethasone 4 Mg Tab) 6 mg PO DAILY [facility] Enoxaparin Sodium (Enoxaparin 40 Mg/0.4 Ml Syringe) 40 mg SUBCUT BID [facility] Finasteride (Finasteride 5 Mg Tab) 5 mg PO DAILY [facility] Guaifenesin (Guaifenesin 100 Mg/5 Ml Soln 10 Ml Ud Cup) 200 mg PO Q6H PRN PRN Reason: Cough Hydralazine HCl (Hydralazine 20 Mg/Ml Sdv) 10 mg IVPUSH Q4H PRN PRN Reason: Hypertension Promethazine HCl 12.5 mg/ (Sodium Chloride) 50.5 mls @ 100 mls/hr IV Q6H PRN PRN Reason: Nausea/Vomiting Ceftriaxone Sodium 2 gm/ (Sodium Chloride) 100 mls @ 200 mls/hr IV Q24H [facility] Doxycycline Hyclate 100 mg/ (Sodium Chloride) 100 mls @ 100 mls/hr IV Q12HR [facility] Remdesivir 100 mg/ Sodium (Chloride) 100 mls @ 100 mls/hr IV Q24H [facility] Stop: 07/23/21 17:59 Melatonin (Melatonin 3 Mg Tab) 3 mg PO BEDTIME [facility] Morphine Sulfate (Morphine 2 Mg/Ml Syringe) 2 mg IVPUSH Q4H PRN PRN Reason: Pain (severe 7-10) Stop: 07/20/21 17:02 Non-Formulary Medication (Atorvastatin Calcium [Atorvastatin Calcium]) 80 mg PO DAILY [facility] Non-Formulary Medication (Metoprolol Succinate [Metoprolol Succinate]) 200 mg PO DAILY [facility] Non-Formulary Medication (Omeprazole Magnesium [Prilosec]) 20 mg PO DAILY [facility] Non-Formulary Medication (Ramipril) 10 mg PO DAILY [facility] Oxycodone HCl (Oxycodone 5 Mg Tab) 5 mg PO Q6H PRN PRN Reason: Pain (moderate 4-6) Zinc Sulfate (Zinc Sulfate 220 Mg Cap) 220 mg PO DAILY [facility] Labs: Laboratory Tests 07/19/21 07/19/21 07/19/21 Range/Units 16:05 16:05 16:05 WBC 7.57 (4.23-9.07) K/mm3 RBC 4.06 L (4.63-6.08) M/mm3 Hgb 12.7 L D (13.7-17.5) gm/dl Hct 37.4 L (40.1-51.0) % MCV 92.1 (79.0-92.2) fl MCH 31.3 (25.7-32.2) pg MCHC 34.0 (32.2-35.5) g/dl RDW Std Deviation 43.1 (35.1-43.9) fL Plt Count 245 D (163-337) K/mm3 MPV 9.7 (9.4-12.3) fl Neut % (Auto) 86.3 H (34.0-67.9) % Lymph % (Auto) 3.7 L (21.8-53.1) % [place] % (Auto) 7.0 (5.3-12.2) % Eos % (Auto) 0.3 L (0.8-7.0) Baso % (Auto) 0.3 (0.1-1.2) % Neut # (Auto) 6.54 H (1.78-5.38) K/mm3 Lymph # (Auto) 0.28 L (1.32-3.57) K/mm3 [place] # (Auto) 0.53 (0.30-0.82) K/mm3 Eos # (Auto) 0.02 L (0.04-0.54) K/mm3 Baso # (Auto) 0.02 (0.01-0.08) K/mm3 PT (9.7-12.0) SECONDS INR APTT (21.7-31.4) SECONDS D-Dimer, Quantitative 1.40 H (0.19-0.50) mg/L Puncture Site ABG pH (7.35-7.45) ABG pCO2 (35.0-45.0) mmHg ABG pO2 (80.0-100.0) mmHg ABG HCO3 (22.0-26.0) meq/L ABG O2 Saturation (96.0-97.0) % ABG Base Excess (-2-2.0) A-a Gradient mmHg O2 Delivery Device Oxygen Flow Rate FiO2 (21.00-100.00) % Sodium 138 (136-145) mEq/L Potassium 3.3 L (3.5-5.1) mEq/L Chloride 103 (98-107) mEq/L Carbon Dioxide 25 (21-32) mEq/L Anion Gap 13.3 (5-15) BUN 25 H (7-18) mg/dL Creatinine 1.3 (0.7-1.3) mg/dL Est Cr Clr Drug Dosing 45.20 mL/min Estimated GFR (MDRD) 54 (>60) mL/min BUN/Creatinine Ratio 19.2 H (14-18) Glucose 181 H (70-99) mg/dL Calcium 8.8 (8.5-10.1) mg/dL Magnesium 2.2 (1.8-2.4) mg/dL Total Bilirubin 2.9 H (0.2-1.0) mg/dL AST 22 (15-37) U/L ALT 24 (16-63) U/L Alkaline Phosphatase 114 (46-116) U/L Lactate Dehydrogenase 201 (85-227) U/L CK-MB (CK-2) 1.5 (0-3.6) ng/ml Troponin I < 0.017 (0.00-0.056) ng/mL C-Reactive Protein 22.9 H* (<1.0) mg/dL NT-Pro-B Natriuret Pep (0-450) pg/mL Total Protein 6.6 (6.4-8.2) g/dl Albumin 2.3 L (3.4-5.0) g/dl Globulin 4.3 gm/dL Albumin/Globulin Ratio 0.5 L (1-2) 07/19/21 07/19/21 07/19/21 Range/Units 16:05 16:05 16:11 WBC (4.23-9.07) K/mm3 RBC (4.63-6.08) M/mm3 Hgb (13.7-17.5) gm/dl Hct (40.1-51.0) % MCV (79.0-92.2) fl MCH (25.7-32.2) pg MCHC (32.2-35.5) g/dl RDW Std Deviation (35.1-43.9) fL Plt Count (163-337) K/mm3 MPV (9.4-12.3) fl Neut % (Auto) (34.0-67.9) % Lymph % (Auto) (21.8-53.1) % [place] % (Auto) (5.3-12.2) % Eos % (Auto) (0.8-7.0) Baso % (Auto) (0.1-1.2) % Neut # (Auto) (1.78-5.38) K/mm3 Lymph # (Auto) (1.32-3.57) K/mm3 [place] # (Auto) (0.30-0.82) K/mm3 Eos # (Auto) (0.04-0.54) K/mm3 Baso # (Auto) (0.01-0.08) K/mm3 PT 11.6 (9.7-12.0) SECONDS INR 1.05 APTT 28.4 (21.7-31.4) SECONDS D-Dimer, Quantitative (0.19-0.50) mg/L Puncture Site Lt radial ABG pH 7.45 (7.35-7.45) ABG pCO2 31.6 L (35.0-45.0) mmHg ABG pO2 65.0 L (80.0-100.0) mmHg ABG HCO3 21.8 L (22.0-26.0) meq/L ABG O2 Saturation 91.5 L (96.0-97.0) % ABG Base Excess -0.9 (-2-2.0) A-a Gradient 123 mmHg O2 Delivery Device Nasal cannula Oxygen Flow Rate 3.0 FiO2 32.00 (21.00-100.00) % Sodium (136-145) mEq/L Potassium (3.5-5.1) mEq/L Chloride (98-107) mEq/L Carbon Dioxide (21-32) mEq/L Anion Gap (5-15) BUN (7-18) mg/dL Creatinine (0.7-1.3) mg/dL Est Cr Clr Drug Dosing mL/min Estimated GFR (MDRD) (>60) mL/min BUN/Creatinine Ratio (14-18) Glucose (70-99) mg/dL Calcium (8.5-10.1) mg/dL Magnesium (1.8-2.4) mg/dL Total Bilirubin (0.2-1.0) mg/dL AST (15-37) U/L ALT (16-63) U/L Alkaline Phosphatase (46-116) U/L Lactate Dehydrogenase (85-227) U/L CK-MB (CK-2) (0-3.6) ng/ml Troponin I (0.00-0.056) ng/mL C-Reactive Protein (<1.0) mg/dL NT-Pro-B Natriuret Pep 429 (0-450) pg/mL Total Protein (6.4-8.2) g/dl Albumin (3.4-5.0) g/dl Globulin gm/dL Albumin/Globulin Ratio (1-2) Meds: Medications Generic Name Dose Route Start Last Admin Trade Name Freq PRN Reason Stop Dose Admin Acetaminophen 650 mg 07/19/21 16:58 Acetaminophen 325 Mg Tab PO Q6H PRN Pain (Mild 1-3)/fever Albuterol/Ipratropium 3 ml 07/19/21 16:58 Albuterol/Ipratropium 3.0-0.5 Mg/3 Ml Neb Soln NEB Q4H PRN Shortness Of Breath/wheezing Amlodipine Besylate 5 mg 07/19/21 17:15 Amlodipine 5 Mg Tab PO DAILY [facility] Aspirin 325 mg 07/20/21 09:00 Aspirin 81 Mg Tab.Ec PO DAILY [facility] Cholecalciferol 25 mcg 07/20/21 09:00 Cholecalciferol (Vitamin D3) 25 Mcg Tab PO DAILY [facility] Clopidogrel Bisulfate 75 mg 07/20/21 09:00 Clopidogrel 75 Mg Tab PO DAILY [facility] Dexamethasone 6 mg 07/20/21 09:00 Dexamethasone 4 Mg Tab PO DAILY [facility] Enoxaparin Sodium 40 mg 07/19/21 21:00 Enoxaparin 40 Mg/0.4 Ml Syringe SUBCUT BID [facility] Finasteride 5 mg 07/20/21 09:00 Finasteride 5 Mg Tab PO DAILY [facility] Guaifenesin 200 mg 07/19/21 17:12 Guaifenesin 100 Mg/5 Ml Soln 10 Ml Ud Cup PO Q6H PRN Cough Hydralazine HCl 10 mg 07/19/21 17:13 Hydralazine 20 Mg/Ml Sdv IVPUSH Q4H PRN Hypertension Promethazine HCl 12.5 mg/ 50.5 mls @ 100 mls/hr 07/19/21 16:58 Sodium Chloride IV Q6H PRN Nausea/Vomiting Ceftriaxone Sodium 2 gm/ 100 mls @ 200 mls/hr 07/19/21 18:00 Sodium Chloride IV Q24H [facility] Doxycycline Hyclate 100 mg/ 100 mls @ 100 mls/hr 07/19/21 21:00 Sodium Chloride IV Q12HR [facility] Remdesivir 100 mg/ Sodium 100 mls @ 100 mls/hr 07/20/21 17:00 Chloride IV 07/23/21 17:59 Q24H [facility] Melatonin 3 mg 07/19/21 21:00 Melatonin 3 Mg Tab PO BEDTIME [facility] Morphine Sulfate 2 mg 07/19/21 16:58 Morphine 2 Mg/Ml Syringe IVPUSH 07/20/21 17:02 Q4H PRN Pain (severe 7-10) Non-Formulary Medication 80 mg 07/20/21 09:00 Atorvastatin Calcium [Atorvastatin Calcium] PO DAILY [facility] Non-Formulary Medication 200 mg 07/20/21 09:00 Metoprolol Succinate [Metoprolol Succinate] PO DAILY [facility] Non-Formulary Medication 20 mg 07/20/21 09:00 Omeprazole Magnesium [Prilosec] PO DAILY [facility] Non-Formulary Medication 10 mg 07/20/21 09:00 Ramipril PO DAILY [facility] Oxycodone HCl 5 mg 07/19/21 16:58 Oxycodone 5 Mg Tab PO Q6H PRN Pain (moderate 4-6) Zinc Sulfate 220 mg 07/19/21 18:00 Zinc Sulfate 220 Mg Cap PO DAILY [facility] Discontinued Medications Generic Name Dose Route Start Last Admin Trade Name Alfonso PRN Reason Stop Dose Admin Dexamethasone 6 mg 07/19/21 16:03 07/19/21 16:47 Dexamethasone 10 Mg/Ml Sdv IVPUSH 07/19/21 16:04 6 mg ONETIME ONE Administration Enoxaparin Sodium 60 mg 07/19/21 21:00 Enoxaparin 40 Mg/0.4 Ml Syringe SUBCUT BID [facility] Dextrose/Sodium Chloride 1,000 mls @ 75 mls/hr 07/19/21 15:45 07/19/21 16:11 Dextrose 5%-Normal Saline IV 75 mls/hr ASDIRECTED [facility] Administration Remdesivir 200 mg/ Sodium 250 mls @ 250 mls/hr 07/19/21 16:01 07/19/21 16:49 Chloride IV 07/19/21 16:02 250 mls/hr ONETIME ONE Administration Potassium Chloride 40 meq 07/19/21 18:30 Potassium Chloride 20 Meq Tab.Er PO DAILY [facility] Potassium Chloride 40 meq 07/19/21 18:30 Potassium Chloride 20 Meq Tab.Er PO 07/19/21 18:31 ONETIME ONE - Radiology Interpretation Free Text/Narrative:: 75-year-old male who is known to be Covid positive likely with symptoms starting on the or 07 July and proven positive he believes on the presents to the ED due to gradually worsening dyspnea. Patient apparently was seen in clinic yesterday and diagnosed with bilateral Covid pneumonia and started on oral antibiotics. He states his O2 sats yesterday were around 89% on room air. Today they are 81% on room air. He states he is dyspneic even at rest. Still has a cough with very rare sputum production. Appetite remains fair. No diarrhea for the last 36 hours. Patient will require admission to the hospital based on his oxygen levels. I will look at his chest x-ray done yesterday and see if there is a need to repeat one today. This appears unlikely. He may well end up with CT of the chest if his D-dimer is very high. Plan will be to give him dexamethasone and remdesivir as soon as possible. - Re-Assessments/Exams Free Text/Narrative Re-Assessment/Exam: 07/19/21 15:55 did review his chest x-ray from yesterday and in fact does have viral pneumonia involving all 5 lobes. On the left it involves the lower portion of the upper lobe and the upper portion of the lower lobe on the left side and all 3 lobes on the right side. Mild cardiomegaly with tortuous thoracic aorta. 07/19/21 16:28 White count is normal at 7.57. The auto differential shows a left shift of 86.3% neutrophils. Hemoglobin is 12.7 with hematocrit of 37.4. Platelet count is normal at 245,000. ABGs revealed a pH of 7.45 and a PCO2 of 31.6. PO2 is 65.0 with a bicarb of 21.8. O2 sats 91.5% on nasal cannula at 3 L/min. 07/19/21 16:49 D-dimer returned elevated at 1.40. Renal function and BNP are not yet available 07/19/21 17:04 Sodium is 138 with a potassium slightly low at 3.3. Chloride 103 with a bicarb of 25. Anion gap is 13.3. BUN is 25 with a creatinine of 1.3 and a GFR 54. BUN/creatinine ratio is 19.2. Glucose is 181. Calcium is 8.8. Magnesium 2.2. Bilirubin is slightly elevated at 2.9 with an AST of 22 and an ALT of 24. Alkaline phosphatase is 114. 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 LDH is 201 CK-MB is 1.5 with a troponin I of less than 0.017. C-reactive protein is not yet available. Total protein is 6.6 with an albumin fraction of 2.3. 07/19/21 17:08 C-reactive protein is elevated at 22.9.BNP is slightly elevated at 429. Patient will be admitted to the med surgery floor on telemetry under the care of Dr. Marshall on-call hospitalist. Patient has completed his remdesivir infusion and first dose of dexamethasone 6 mg IV. Departure - Departure Time of Disposition: 18:00 Disposition: Admitted As Inpatient 65 Condition: Serious Clinical Impression: Hypoxemia requiring supplemental oxygen, Pneumonia due to coronavirus disease 2019, Systolic essential hypertension - Discharge Information *PRESCRIPTION DRUG MONITORING PROGRAM REVIEWED*: Not Applicable *COPY OF PRESCRIPTION DRUG MONITORING REPORT IN PATIENT LILIANA: Not Applicable Sepsis Event Note (ED) - Evaluation Sepsis Screening Result: No Definite Risk - Focused Exam Vital Signs: Vital Signs Temp Pulse Resp BP Pulse Ox 07/19/21 15:16 36.4 C 96 24 H 133/68 81 L
[2021-07-19] MEDS ORDERED: Dextrose 5%-0.9% NaCl 1,000 ML IV SCH (15:45)
[2021-07-19] MEDS ORDERED: REMDESIVIR 200 MG in Sodium Chloride 0.9% 250 ML IV ONE (16:01)
[2021-07-19] MEDS ORDERED: Dexamethasone 10 MG/ML SDV IVPUSH ONE (16:03)
[2021-07-19] MEDS ORDERED: Acetaminophen 325 MG Tab PO PRN (16:58)
[2021-07-19] MEDS ORDERED: oxyCODONE 5 MG Tab PO PRN (16:58)
[2021-07-19] MEDS ORDERED: Promethazine 12.5 MG in Sodium Chloride 0.9% 50 ML IV PRN (16:58)
[2021-07-19] MEDS ORDERED: Morphine 2 MG/ML SYRINGE IVPUSH PRN (16:58)
[2021-07-19] MEDS ORDERED: guaiFENesin 100 MG/5 ML Soln 10 ML UD Cup PO PRN (17:12)
[2021-07-19] MEDS ORDERED: hydrALAZINE 20 MG/ML SDV IVPUSH PRN (17:13)
[2021-07-19] MEDS ORDERED: Potassium Chloride 20 MEQ Tab.ER PO ONE (18:30)
[2021-07-19] MEDS ORDERED: Potassium Chloride 20 MEQ Tab.ER PO SCH (18:30)
--- NOTE | 2021-07-19 18:34 | PCM.HP.2 ---
H&P History of Present Illness - General Date of Service: 07/19/21 Admit Problem/Dx: Admission Diagnosis/Problem Admission Diagnosis/Problem Pneumonia Source of Information: Patient - History of Present Illness Initial Comments - Free Text/Narative: Patient is a 75-year-old male with a history of CAD and hypertension who presented to the ER due to worsening shortness of breath and oxygen desaturati on. Patient had fever, chills, fatigue, and weakness on 07-06-2021. He had a positive COVID-19 test on July 11. Over the past few days, he has been having worsening shortness of breath associated with occasional dry cough. he was also found to have low oxygen desaturation, 89% on room air yesterday. He visited his doctor yesterday who found that he has bilateral pneumonia. doxycycline was initiated yesterday for his pneumonia. In the ER, he was found to have oxygen desaturation 81% on room air. He has not received a COVID-19 vaccine yet. - Related Data Allergies/Adverse Reactions: Allergies Allergy/AdvReac Type Severity Reaction Status Date / Time No Known Allergies Allergy Verified 07/19/21 18:27 Home Medications: Home Meds Aspirin [Ecotrin EC] 325 mg PO DAILY 02/15/16 [History] Clopidogrel [Plavix] 75 mg PO DAILY 02/15/16 [History] Metoprolol Succinate 200 mg PO DAILY 02/15/16 [History] Ramipril 10 mg PO DAILY 02/15/16 [History] atorvaSTATin Calcium [Atorvastatin Calcium] 80 mg PO DAILY 02/15/16 [History] Finasteride 5 mg PO DAILY 08/24/19 [History] Omeprazole Magnesium [Prilosec] 20 mg PO DAILY 08/24/19 [History] amLODIPine [Norvasc] 5 mg PO DAILY 08/24/19 [History] Benzonatate 1 - 2 tab PO Q8HR PRN 07/19/21 [History] Ondansetron [Zofran ODT] 4 mg PO Q6HR PRN 07/19/21 [History] dexAMETHasone [Dexamethasone] 4 mg PO DAILY 07/19/21 [History] Past Medical History HEENT History: Reports: Cataract, Impaired Vision, Other (See Below) Other HEENT History: wears glasses Cardiovascular History: Reports: Hypertension, Stents Respiratory History: Reports: Sleep Apnea Other Respiratory History: used to wear cpap-can't sleep well with it-doesn't wear. Gastrointestinal History: Reports: Chronic Constipation, GERD, Other (See Below) Other Gastrointestinal History: abnormal liver ultrasound, increased bilirubin Genitourinary History: Reports: Renal Calculus Musculoskeletal History: Reports: Arthritis Neurological History: Reports: Other (See Below) Other Neuro History: bain's palsy Psychiatric History: Reports: Other (See Below) Other Psychiatric History: insomnia - Infectious Disease History Infectious Disease History: Reports: Chicken Pox, Measles, Mumps, Novel Coronavirus - Past Surgical History HEENT Surgical History: Reports: Cataract Surgery Cardiovascular Surgical History: Reports: Coronary Artery Stent Other Cardiovascular Surgeries/Procedures: stent placed in 2002 GI Surgical History: Reports: Appendectomy, Colonoscopy Male Surgical History: Reports: Lithotripsy ([facility]) Social & Family History - Family History Family Medical History: No Pertinent Family History (Denies genetic diseases in family) - Tobacco Use Tobacco Use Status *Q: Never Tobacco User - Caffeine Use Caffeine Use: Reports: Coffee, Soda, Tea - Recreational Drug Use Recreational Drug Use: No - Living Situation & Occupation Living situation: Reports: Occupation: Retired H&P Review of Systems - Review of Systems: Review Of Systems: See Below (Positive for fatigue, cough, and shortness of breath. All other systems were reviewed and are negative.) Exam - Exam Exam: See Below - Vital Signs Vital Signs: Last Vital Signs Temp 36.7 C 07/19/21 17:54 Pulse 93 07/19/21 17:54 Resp 20 07/19/21 17:54 BP 139/71 07/19/21 17:54 Pulse Ox 91 L 07/19/21 17:54 Weight: 84.776 kg - Exam General: Alert, Oriented, Cooperative HEENT: Conjunctiva Clear, EOMI, Pupils Equal, Pupils Reactive Neck: Supple, Full Range of Motion. No: Lymphadenopathy, JVD Lungs: Decreased Breath Sounds, Crackles, Rhonchi Cardiovascular: Regular Rate, Regular Rhythm GI/Abdominal Exam: Normal Bowel Sounds, Soft, Non-Tender, No Organomegaly Extremities: Normal Inspection, Normal Range of Motion, Non-Tender, No Pedal Edema Neurological: Cranial Nerves Intact, Strength Equal Bilateral, Sensation Intact Neuro Extensive - Mental Status: Alert, Oriented x3, Normal Mood/Affect Psychiatric: Normal Mood - Patient Data Lab Results Last 24 hrs: Laboratory Results - last 24 hr 07/19/21 07/19/21 07/19/21 Range/Units 16:05 16:05 16:05 WBC 7.57 (4.23-9.07) K/mm3 RBC 4.06 L (4.63-6.08) M/mm3 Hgb 12.7 L D (13.7-17.5) gm/dl Hct 37.4 L (40.1-51.0) % MCV 92.1 (79.0-92.2) fl MCH 31.3 (25.7-32.2) pg MCHC 34.0 (32.2-35.5) g/dl RDW Std Deviation 43.1 (35.1-43.9) fL Plt Count 245 D (163-337) K/mm3 MPV 9.7 (9.4-12.3) fl Neut % (Auto) 86.3 H (34.0-67.9) % Lymph % (Auto) 3.7 L (21.8-53.1) % [place] % (Auto) 7.0 (5.3-12.2) % Eos % (Auto) 0.3 L (0.8-7.0) Baso % (Auto) 0.3 (0.1-1.2) % Neut # (Auto) 6.54 H (1.78-5.38) K/mm3 Lymph # (Auto) 0.28 L (1.32-3.57) K/mm3 [place] # (Auto) 0.53 (0.30-0.82) K/mm3 Eos # (Auto) 0.02 L (0.04-0.54) K/mm3 Baso # (Auto) 0.02 (0.01-0.08) K/mm3 PT (9.7-12.0) SECONDS INR APTT (21.7-31.4) SECONDS D-Dimer, Quantitative 1.40 H (0.19-0.50) mg/L Puncture Site ABG pH (7.35-7.45) ABG pCO2 (35.0-45.0) mmHg ABG pO2 (80.0-100.0) mmHg ABG HCO3 (22.0-26.0) meq/L ABG O2 Saturation (96.0-97.0) % ABG Base Excess (-2-2.0) A-a Gradient mmHg O2 Delivery Device Oxygen Flow Rate FiO2 (21.00-100.00) % Sodium 138 (136-145) mEq/L Potassium 3.3 L (3.5-5.1) mEq/L Chloride 103 (98-107) mEq/L Carbon Dioxide 25 (21-32) mEq/L Anion Gap 13.3 (5-15) BUN 25 H (7-18) mg/dL Creatinine 1.3 (0.7-1.3) mg/dL Est Cr Clr Drug Dosing 45.20 mL/min Estimated GFR (MDRD) 54 (>60) mL/min BUN/Creatinine Ratio 19.2 H (14-18) Glucose 181 H (70-99) mg/dL Calcium 8.8 (8.5-10.1) mg/dL Magnesium 2.2 (1.8-2.4) mg/dL Total Bilirubin 2.9 H (0.2-1.0) mg/dL AST 22 (15-37) U/L ALT 24 (16-63) U/L Alkaline Phosphatase 114 (46-116) U/L Lactate Dehydrogenase 201 (85-227) U/L CK-MB (CK-2) 1.5 (0-3.6) ng/ml Troponin I < 0.017 (0.00-0.056) ng/mL C-Reactive Protein 22.9 H* (<1.0) mg/dL NT-Pro-B Natriuret Pep (0-450) pg/mL Total Protein 6.6 (6.4-8.2) g/dl Albumin 2.3 L (3.4-5.0) g/dl Globulin 4.3 gm/dL Albumin/Globulin Ratio 0.5 L (1-2) 07/19/21 07/19/21 07/19/21 Range/Units 16:05 16:05 16:11 WBC (4.23-9.07) K/mm3 RBC (4.63-6.08) M/mm3 Hgb (13.7-17.5) gm/dl Hct (40.1-51.0) % MCV (79.0-92.2) fl MCH (25.7-32.2) pg MCHC (32.2-35.5) g/dl RDW Std Deviation (35.1-43.9) fL Plt Count (163-337) K/mm3 MPV (9.4-12.3) fl Neut % (Auto) (34.0-67.9) % Lymph % (Auto) (21.8-53.1) % [place] % (Auto) (5.3-12.2) % Eos % (Auto) (0.8-7.0) Baso % (Auto) (0.1-1.2) % Neut # (Auto) (1.78-5.38) K/mm3 Lymph # (Auto) (1.32-3.57) K/mm3 [place] # (Auto) (0.30-0.82) K/mm3 Eos # (Auto) (0.04-0.54) K/mm3 Baso # (Auto) (0.01-0.08) K/mm3 PT 11.6 (9.7-12.0) SECONDS INR 1.05 APTT 28.4 (21.7-31.4) SECONDS D-Dimer, Quantitative (0.19-0.50) mg/L Puncture Site Lt radial ABG pH 7.45 (7.35-7.45) ABG pCO2 31.6 L (35.0-45.0) mmHg ABG pO2 65.0 L (80.0-100.0) mmHg ABG HCO3 21.8 L (22.0-26.0) meq/L ABG O2 Saturation 91.5 L (96.0-97.0) % ABG Base Excess -0.9 (-2-2.0) A-a Gradient 123 mmHg O2 Delivery Device Nasal cannula Oxygen Flow Rate 3.0 FiO2 32.00 (21.00-100.00) % Sodium (136-145) mEq/L Potassium (3.5-5.1) mEq/L Chloride (98-107) mEq/L Carbon Dioxide (21-32) mEq/L Anion Gap (5-15) BUN (7-18) mg/dL Creatinine (0.7-1.3) mg/dL Est Cr Clr Drug Dosing mL/min Estimated GFR (MDRD) (>60) mL/min BUN/Creatinine Ratio (14-18) Glucose (70-99) mg/dL Calcium (8.5-10.1) mg/dL Magnesium (1.8-2.4) mg/dL Total Bilirubin (0.2-1.0) mg/dL AST (15-37) U/L ALT (16-63) U/L Alkaline Phosphatase (46-116) U/L Lactate Dehydrogenase (85-227) U/L CK-MB (CK-2) (0-3.6) ng/ml Troponin I (0.00-0.056) ng/mL C-Reactive Protein (<1.0) mg/dL NT-Pro-B Natriuret Pep 429 (0-450) pg/mL Total Protein (6.4-8.2) g/dl Albumin (3.4-5.0) g/dl Globulin gm/dL Albumin/Globulin Ratio (1-2) Result Diagrams: 07/19/21 16:05 07/19/21 16:05 Sepsis Event Note - Evaluation Sepsis Screening Result: No Definite Risk - Focused Exam Vital Signs: Vital Signs Temp Temp Pulse Pulse Resp BP BP 07/19/21 17:54 36.7 C 93 20 139/71 07/19/21 15:16 36.4 C 96 24 H 133/68 Pulse Ox 07/19/21 17:54 91 L 07/19/21 15:16 81 L Problem List Initiated/Reviewed/Updated: Yes Orders Last 24hrs: Active Orders 24 hr Category Date Time Status Admission Status [Patient Status] [ADT] Routine ADT 07/19/21 17:18 Active Patient Status [ADT] Routine ADT 07/19/21 16:58 Active Antiembolic Devices [RC] PER UNIT ROUTINE Care 07/19/21 17:01 Active Bedrest Bedside Commode [RC] ASDIRECTED Care 07/19/21 16:58 Active Cardiac Monitoring [RC] CONTINUOUS Care 07/19/21 17:00 Active Intake and Output [RC] QSHIFT Care 07/19/21 17:00 Active Oxygen Therapy [RC] PRN Care 07/19/21 16:58 Active Pulse Oximetry [RC] CONTINUOUS Care 07/19/21 17:00 Active RT Aerosol Therapy [RC] ASDIRECTED Care 07/19/21 17:03 Active VTE/DVT Education [RC] PER UNIT ROUTINE Care 07/19/21 16:58 Active Vital Signs [RC] Q4H Care 07/19/21 16:58 Active OT Evaluation and Treatment [CONS] Routine Cons 07/19/21 16:58 Active PT Evaluation and Treatment [CONS] Routine Cons 07/19/21 16:58 Active 2 Gram Sodium Diet [DIET] Diet 07/19/21 Dinner Active BLOOD CULTURE [MREF] Stat Lab 07/19/21 17:22 Received BLOOD CULTURE [MREF] Stat Lab 07/19/21 17:30 Received C-REACTIVE PROTEIN [CHEM] DAILY Lab 07/20/21 05:00 Ordered C-REACTIVE PROTEIN [CHEM] DAILY Lab 07/21/21 05:00 Ordered C-REACTIVE PROTEIN [CHEM] DAILY Lab 07/22/21 05:00 Ordered C-REACTIVE PROTEIN [CHEM] DAILY Lab 07/23/21 05:00 Ordered C-REACTIVE PROTEIN [CHEM] DAILY Lab 07/24/21 05:00 Ordered CBC WITH AUTO DIFF [HEME] DAILY Lab 07/20/21 05:00 Ordered CBC WITH AUTO DIFF [HEME] DAILY Lab 07/21/21 05:00 Ordered CBC WITH AUTO DIFF [HEME] DAILY Lab 07/22/21 05:00 Ordered CBC WITH AUTO DIFF [HEME] DAILY Lab 07/23/21 05:00 Ordered CBC WITH AUTO DIFF [HEME] DAILY Lab 07/24/21 05:00 Ordered COMPREHENSIVE METABOLIC PN,CMP [CHEM] DAILY Lab 07/20/21 05:00 Ordered COMPREHENSIVE METABOLIC PN,CMP [CHEM] DAILY Lab 07/21/21 05:00 Ordered COMPREHENSIVE METABOLIC PN,CMP [CHEM] DAILY Lab 07/22/21 05:00 Ordered COMPREHENSIVE METABOLIC PN,CMP [CHEM] DAILY Lab 07/23/21 05:00 Ordered COMPREHENSIVE METABOLIC PN,CMP [CHEM] DAILY Lab 07/24/21 05:00 Ordered RESPIRATORY CULT [MREF] Stat Lab 07/19/21 16:58 Ordered UA W/MICROSCOPIC [URIN] Routine Lab 07/19/21 16:58 Ordered Acetaminophen [TylenoL] Med 07/19/21 16:58 Active 650 mg PO Q6H PRN Albuterol/Ipratropium [DuoNeb 3.0-0.5 MG/3 ML] Med 07/19/21 16:58 Active 3 ml NEB Q4H PRN Aspirin [Halfprin] Med 07/20/21 09:00 Ordered 325 mg PO DAILY Cholecalciferol (Vitamin D3) [Vitamin D3] Med 07/20/21 09:00 Active 25 mcg PO DAILY Clopidogrel [Plavix] Med 07/20/21 09:00 Ordered 75 mg PO DAILY Doxycycline [Vibramycin] 100 mg Med 07/19/21 21:00 Active Sodium Chloride 0.9% [Normal Saline] 100 ml IV Q12HR Enoxaparin [Lovenox] Med 07/19/21 21:00 Ordered 40 mg SUBCUT BID Finasteride [Proscar] Med 07/20/21 09:00 Ordered 5 mg PO DAILY Melatonin Med 07/19/21 21:00 Active 3 mg PO BEDTIME Metoprolol Succinate [Metoprolol Succinate] Med 07/20/21 09:00 Ordered 200 mg PO DAILY Morphine Med 07/19/21 16:58 Active 2 mg IVPUSH Q4H PRN Omeprazole Magnesium [Prilosec] Med 07/20/21 09:00 Ordered 20 mg PO DAILY Potassium Chloride [Klor-Con M20] Med 07/19/21 18:30 Once 40 meq PO ONETIME ONE Promethazine [Phenergan] 12.5 mg Med 07/19/21 16:58 Active Sodium Chloride 0.9% [Normal Saline] 50 ml IV Q6H Ramipril Med 07/20/21 09:00 Ordered 10 mg PO DAILY Remdesivir 100 mg Med 07/20/21 17:00 Active Sodium Chloride 0.9% [Normal Saline] 100 ml IV Q24H Zinc Sulfate [Zincate] Med 07/19/21 18:00 Active 220 mg PO DAILY amLODIPine [Norvasc] Med 07/19/21 17:15 Pending 5 mg PO DAILY atorvaSTATin Calcium [Atorvastatin Calcium] Med 07/20/21 09:00 Ordered 80 mg PO DAILY cefTRIAXone [Rocephin] 2 gm Med 07/19/21 18:00 Active Sodium Chloride 0.9% [Normal Saline] 100 ml IV Q24H dexAMETHasone Med 07/20/21 09:00 Active 6 mg PO DAILY guaiFENesin [Robitussin] Med 07/19/21 17:12 Active 200 mg PO Q6H PRN hydrALAZINE [Apresoline] Med 07/19/21 17:13 Active 10 mg IVPUSH Q4H PRN oxyCODONE Med 07/19/21 16:58 Active 5 mg PO Q6H PRN Blood Culture x2 Reflex Set [OM.PC] Stat Oth 07/19/21 16:58 Ordered Sequential Compression Device [OM.PC] Per Unit Routine Oth 07/19/21 17:00 Ordered Resuscitation Status Routine Resus Stat 07/19/21 16:58 Ordered Medication Orders Acetaminophen (Acetaminophen 325 Mg Tab) 650 mg PO Q6H PRN PRN Reason: Pain (Mild 1-3)/fever Albuterol/Ipratropium (Albuterol/Ipratropium 3.0-0.5 Mg/3 Ml Neb Soln) 3 ml NEB Q4H PRN PRN Reason: Shortness Of Breath/wheezing Amlodipine Besylate (Amlodipine 5 Mg Tab) 5 mg PO DAILY [facility] Aspirin (Aspirin 81 Mg Tab.Ec) 325 mg PO DAILY [facility] Cholecalciferol (Cholecalciferol (Vitamin D3) 25 Mcg Tab) 25 mcg PO DAILY [facility] Clopidogrel Bisulfate (Clopidogrel 75 Mg Tab) 75 mg PO DAILY [facility] Dexamethasone (Dexamethasone 4 Mg Tab) 6 mg PO DAILY [facility] Enoxaparin Sodium (Enoxaparin 40 Mg/0.4 Ml Syringe) 40 mg SUBCUT BID [facility] Finasteride (Finasteride 5 Mg Tab) 5 mg PO DAILY [facility] Guaifenesin (Guaifenesin 100 Mg/5 Ml Soln 10 Ml Ud Cup) 200 mg PO Q6H PRN PRN Reason: Cough Hydralazine HCl (Hydralazine 20 Mg/Ml Sdv) 10 mg IVPUSH Q4H PRN PRN Reason: Hypertension Promethazine HCl 12.5 mg/ (Sodium Chloride) 50.5 mls @ 100 mls/hr IV Q6H PRN PRN Reason: Nausea/Vomiting Ceftriaxone Sodium 2 gm/ (Sodium Chloride) 100 mls @ 200 mls/hr IV Q24H [facility] Doxycycline Hyclate 100 mg/ (Sodium Chloride) 100 mls @ 100 mls/hr IV Q12HR [facility] Remdesivir 100 mg/ Sodium (Chloride) 100 mls @ 100 mls/hr IV Q24H [place] Stop: 07/23/21 17:59 Melatonin (Melatonin 3 Mg Tab) 3 mg PO BEDTIME [place] Morphine Sulfate (Morphine 2 Mg/Ml Syringe) 2 mg IVPUSH Q4H PRN PRN Reason: Pain (severe 7-10) Stop: 07/20/21 17:02 Non-Formulary Medication (Atorvastatin Calcium [Atorvastatin Calcium]) 80 mg PO DAILY [facility] Non-Formulary Medication (Metoprolol Succinate [Metoprolol Succinate]) 200 mg PO DAILY [facility] Non-Formulary Medication (Omeprazole Magnesium [Prilosec]) 20 mg PO DAILY [facility] Non-Formulary Medication (Ramipril) 10 mg PO DAILY [facility] Oxycodone HCl (Oxycodone 5 Mg Tab) 5 mg PO Q6H PRN PRN Reason: Pain (moderate 4-6) Potassium Chloride (Potassium Chloride 20 Meq Tab.Er) 40 meq PO ONETIME ONE Stop: 07/19/21 18:31 Zinc Sulfate (Zinc Sulfate 220 Mg Cap) 220 mg PO DAILY [facility] Assessment/Plan Comment:: Patient is a 75-year-old male with a history of CAD and hypertension who presented to the ER due to worsening shortness of breath and oxygen desaturation. Symptoms started on July 06, 2021. He had a positive COVID- 19 test on July 11 Assessment and plan: Acute hypoxic respiratory failure Pulse ox Oxygen therapy, high flow/BiPAP as needed to keep oxygen saturation greater than 92% Covid 19 pneumonia X-ray showed bilateral pneumonia (x-ray done in PCP office) Blood culture Sputum culture Ceftriaxone and doxycycline 5-day course of remdesivir 10-day course of dexamethasone Patient is on aspirin and Plavix for his CAD, s/p stent. His D-dimer mildly elevated to 1.40. Consider patient's age and condition, I would like to continue aspirin and Plavix. But I will will start him on Lovenox 40 mg twice daily. Inhalers Repeat CBC, CMP, CRP in morning CAD, s/p 1 stent placement Continue aspirin and plavix Continue Lipitor Elevation of D-dimer, 1.40 Most likely due to Covid 19 infection. His GFR 54. I would not like to do CTA for him for the mild elevation of D-dimer in the setting of positive Covid 19. Continue aspirin and Lipitor. 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
[2021-07-19] MEDS: Zinc Sulfate 220 MG Cap PO SCH (19:16)
[2021-07-19] MEDS: cefTRIAXone 2 GM in Sodium Chloride 0.9% 100 ML IV SCH (19:17)
[2021-07-19] MEDS: Doxycycline 100 MG in Sodium Chloride 0.9% 100 ML IV SCH (20:42)
[2021-07-19] MEDS: Melatonin 3 MG Tab PO SCH (20:42)
[2021-07-19] MEDS: Albuterol/Ipratropium 3.0-0.5 MG/3 ML Neb Soln NEB PRN (20:54)
[2021-07-19] MEDS ORDERED: Enoxaparin 40 MG/0.4 ML Syringe SUBCUT SCH (21:00)
[2021-07-19] MEDS: Enoxaparin 40 MG/0.4 ML Syringe SUBCUT SCH (21:25)
[2021-07-20] MEDS: Pantoprazole 40 MG Tab.CR PO SCH (05:30)
[2021-07-20] MEDS: Albuterol/Ipratropium 3.0-0.5 MG/3 ML Neb Soln NEB PRN ×3 (08:40→19:50)
[2021-07-20] MEDS: Enoxaparin 40 MG/0.4 ML Syringe SUBCUT SCH ×2 (09:00→21:33)
[2021-07-20] MEDS ORDERED: Non-Formulary Medication 1 Each (Atorvastatin Calcium [Atorvastatin Calcium] 80 MG Tablet) PO SCH (09:00)
[2021-07-20] MEDS ORDERED: RAMIPRIL 10 MG PO SCH (09:00)
[2021-07-20] MEDS: Doxycycline 100 MG in Sodium Chloride 0.9% 100 ML IV SCH ×2 (09:00→21:34)
[2021-07-20] MEDS: Finasteride 5 MG Tab PO SCH (09:01)
[2021-07-20] MEDS: Lisinopril 20 MG Tab PO SCH (09:01)
[2021-07-20] MEDS: Zinc Sulfate 220 MG Cap PO SCH (09:01)
[2021-07-20] MEDS: Rosuvastatin 10 MG Tab PO SCH (09:01)
[2021-07-20] MEDS: Aspirin 325 MG Tab.EC PO SCH (09:01)
[2021-07-20] MEDS: amLODIPine 5 MG Tab PO SCH (09:02)
[2021-07-20] MEDS: Metoprolol Succinate 50 MG Tab.ER PO SCH (09:02)
[2021-07-20] MEDS: Cholecalciferol (Vitamin D3) 25 MCG Tab PO SCH (09:02)
[2021-07-20] MEDS: Potassium Chloride 20 MEQ Tab.ER PO SCH ×2 (09:02→16:07)
[2021-07-20] MEDS: Clopidogrel 75 MG Tab PO SCH (09:02)
[2021-07-20] MEDS: Dexamethasone 4 MG Tab PO SCH (09:03)
[2021-07-20] MEDS ORDERED: Magnesium Hydroxide 400 MG/5 ML Susp 30 ML Cup PO PRN (10:40)
--- NOTE | 2021-07-20 14:08 | PCM.PN ---
- General Info Date of Service: 07/20/21 Admission Dx/Problem (Free Text): Admission Diagnosis/Problem Admission Diagnosis/Problem Pneumonia Subjective Update: Patient is a 75-year-old male with a history of CAD and hypertension who presented to the ER due to worsening shortness of breath and oxygen desaturation. Patient had fever, chills, fatigue, and weakness on 07-06-2021. He had a positive COVID-19 test on July 11. Patient does not have any new complaints. Denies fever, chills, nausea or vomiting. He is now on 3 to 4 L CRP 19 today from 22.9 yesterday Potassium 3.4 Total bilirubin 1.5 today from 2.9 yesterday UA showed microscopic hematuria - Review of Systems Systems Review Comment:: Positive for fatigue, cough, and shortness of breath. All other systems were reviewed and are negative. - Patient Data Vitals - Most Recent: Last Vital Signs Temp 36.4 C 07/20/21 11:38 Pulse 77 07/20/21 11:38 Resp 20 07/20/21 11:38 BP 119/53 L 07/20/21 11:38 Pulse Ox 91 L 07/20/21 08:41 Weight - Most Recent: 83.325 kg I&O - Last 24 Hours: Intake & Output 07/19/21 07/20/21 07/20/21 22:59 06:59 14:59 Intake Total 1400 Output Total 550 Balance 850 Lab Results Last 24 Hours: Laboratory Results - last 24 hr 07/19/21 07/19/21 07/19/21 Range/Units 16:05 16:05 16:05 WBC 7.57 (4.23-9.07) K/mm3 RBC 4.06 L (4.63-6.08) M/mm3 Hgb 12.7 L D (13.7-17.5) gm/dl Hct 37.4 L (40.1-51.0) % MCV 92.1 (79.0-92.2) fl MCH 31.3 (25.7-32.2) pg MCHC 34.0 (32.2-35.5) g/dl RDW Std Deviation 43.1 (35.1-43.9) fL Plt Count 245 D (163-337) K/mm3 MPV 9.7 (9.4-12.3) fl Neut % (Auto) 86.3 H (34.0-67.9) % Lymph % (Auto) 3.7 L (21.8-53.1) % [place] % (Auto) 7.0 (5.3-12.2) % Eos % (Auto) 0.3 L (0.8-7.0) Baso % (Auto) 0.3 (0.1-1.2) % Neut # (Auto) 6.54 H (1.78-5.38) K/mm3 Lymph # (Auto) 0.28 L (1.32-3.57) K/mm3 [place] # (Auto) 0.53 (0.30-0.82) K/mm3 Eos # (Auto) 0.02 L (0.04-0.54) K/mm3 Baso # (Auto) 0.02 (0.01-0.08) K/mm3 PT (9.7-12.0) SECONDS INR APTT (21.7-31.4) SECONDS D-Dimer, Quantitative 1.40 H (0.19-0.50) mg/L Puncture Site ABG pH (7.35-7.45) ABG pCO2 (35.0-45.0) mmHg ABG pO2 (80.0-100.0) mmHg ABG HCO3 (22.0-26.0) meq/L ABG O2 Saturation (96.0-97.0) % ABG Base Excess (-2-2.0) A-a Gradient mmHg O2 Delivery Device Oxygen Flow Rate FiO2 (21.00-100.00) % Sodium 138 (136-145) mEq/L Potassium 3.3 L (3.5-5.1) mEq/L Chloride 103 (98-107) mEq/L Carbon Dioxide 25 (21-32) mEq/L Anion Gap 13.3 (5-15) BUN 25 H (7-18) mg/dL Creatinine 1.3 (0.7-1.3) mg/dL Est Cr Clr Drug Dosing 45.20 mL/min Estimated GFR (MDRD) 54 (>60) mL/min BUN/Creatinine Ratio 19.2 H (14-18) Glucose 181 H (70-99) mg/dL Calcium 8.8 (8.5-10.1) mg/dL Magnesium 2.2 (1.8-2.4) mg/dL Total Bilirubin 2.9 H (0.2-1.0) mg/dL AST 22 (15-37) U/L ALT 24 (16-63) U/L Alkaline Phosphatase 114 (46-116) U/L Lactate Dehydrogenase 201 (85-227) U/L CK-MB (CK-2) 1.5 (0-3.6) ng/ml Troponin I < 0.017 (0.00-0.056) ng/mL C-Reactive Protein 22.9 H* (<1.0) mg/dL NT-Pro-B Natriuret Pep (0-450) pg/mL Total Protein 6.6 (6.4-8.2) g/dl Albumin 2.3 L (3.4-5.0) g/dl Globulin 4.3 gm/dL Albumin/Globulin Ratio 0.5 L (1-2) Urine Color (Yellow) Urine Appearance (Clear) Urine pH (5.0-8.0) Ur Specific [place] (1.005-1.030) Urine Protein (Negative) Urine Glucose (UA) (Negative) Urine Ketones (Negative) Urine Occult Blood (Negative) Urine Nitrite (Negative) Urine Bilirubin (Negative) Urine Urobilinogen (0.2-1.0) Ur Leukocyte Esterase (Negative) Urine RBC (0-5) /hpf Urine WBC (0-5) /hpf Ur Squamous Epith Cells (0-5) /hpf Urine Bacteria (FEW) /hpf Urine Mucus (FEW) /hpf 07/19/21 07/19/21 07/19/21 Range/Units 16:05 16:05 16:11 WBC (4.23-9.07) K/mm3 RBC (4.63-6.08) M/mm3 Hgb (13.7-17.5) gm/dl Hct (40.1-51.0) % MCV (79.0-92.2) fl MCH (25.7-32.2) pg MCHC (32.2-35.5) g/dl RDW Std Deviation (35.1-43.9) fL Plt Count (163-337) K/mm3 MPV (9.4-12.3) fl Neut % (Auto) (34.0-67.9) % Lymph % (Auto) (21.8-53.1) % [place] % (Auto) (5.3-12.2) % Eos % (Auto) (0.8-7.0) Baso % (Auto) (0.1-1.2) % Neut # (Auto) (1.78-5.38) K/mm3 Lymph # (Auto) (1.32-3.57) K/mm3 [place] # (Auto) (0.30-0.82) K/mm3 Eos # (Auto) (0.04-0.54) K/mm3 Baso # (Auto) (0.01-0.08) K/mm3 PT 11.6 (9.7-12.0) SECONDS INR 1.05 APTT 28.4 (21.7-31.4) SECONDS D-Dimer, Quantitative (0.19-0.50) mg/L Puncture Site Lt radial ABG pH 7.45 (7.35-7.45) ABG pCO2 31.6 L (35.0-45.0) mmHg ABG pO2 65.0 L (80.0-100.0) mmHg ABG HCO3 21.8 L (22.0-26.0) meq/L ABG O2 Saturation 91.5 L (96.0-97.0) % ABG Base Excess -0.9 (-2-2.0) A-a Gradient 123 mmHg O2 Delivery Device Nasal cannula Oxygen Flow Rate 3.0 FiO2 32.00 (21.00-100.00) % Sodium (136-145) mEq/L Potassium (3.5-5.1) mEq/L Chloride (98-107) mEq/L Carbon Dioxide (21-32) mEq/L Anion Gap (5-15) BUN (7-18) mg/dL Creatinine (0.7-1.3) mg/dL Est Cr Clr Drug Dosing mL/min Estimated GFR (MDRD) (>60) mL/min BUN/Creatinine Ratio (14-18) Glucose (70-99) mg/dL Calcium (8.5-10.1) mg/dL Magnesium (1.8-2.4) mg/dL Total Bilirubin (0.2-1.0) mg/dL AST (15-37) U/L ALT (16-63) U/L Alkaline Phosphatase (46-116) U/L Lactate Dehydrogenase (85-227) U/L CK-MB (CK-2) (0-3.6) ng/ml Troponin I (0.00-0.056) ng/mL C-Reactive Protein (<1.0) mg/dL NT-Pro-B Natriuret Pep 429 (0-450) pg/mL Total Protein (6.4-8.2) g/dl Albumin (3.4-5.0) g/dl Globulin gm/dL Albumin/Globulin Ratio (1-2) Urine Color (Yellow) Urine Appearance (Clear) Urine pH (5.0-8.0) Ur Specific [place] (1.005-1.030) Urine Protein (Negative) Urine Glucose (UA) (Negative) Urine Ketones (Negative) Urine Occult Blood (Negative) Urine Nitrite (Negative) Urine Bilirubin (Negative) Urine Urobilinogen (0.2-1.0) Ur Leukocyte Esterase (Negative) Urine RBC (0-5) /hpf Urine WBC (0-5) /hpf Ur Squamous Epith Cells (0-5) /hpf Urine Bacteria (FEW) /hpf Urine Mucus (FEW) /hpf 07/19/21 07/20/21 07/20/21 Range/Units 21:30 06:30 06:30 WBC 5.90 (4.23-9.07) K/mm3 RBC 3.78 L (4.63-6.08) M/mm3 Hgb 11.8 L (13.7-17.5) gm/dl Hct 35.3 L (40.1-51.0) % MCV 93.4 H (79.0-92.2) fl MCH 31.2 (25.7-32.2) pg MCHC 33.4 (32.2-35.5) g/dl RDW Std Deviation 42.7 (35.1-43.9) fL Plt Count 225 (163-337) K/mm3 MPV 9.9 (9.4-12.3) fl Neut % (Auto) 84.6 H (34.0-67.9) % Lymph % (Auto) 6.4 L (21.8-53.1) % [place] % (Auto) 6.9 (5.3-12.2) % Eos % (Auto) 0 L (0.8-7.0) Baso % (Auto) 0.2 (0.1-1.2) % Neut # (Auto) 4.99 (1.78-5.38) K/mm3 Lymph # (Auto) 0.38 L (1.32-3.57) K/mm3 [place] # (Auto) 0.41 (0.30-0.82) K/mm3 Eos # (Auto) 0.00 L (0.04-0.54) K/mm3 Baso # (Auto) 0.01 (0.01-0.08) K/mm3 PT (9.7-12.0) SECONDS INR APTT (21.7-31.4) SECONDS D-Dimer, Quantitative (0.19-0.50) mg/L Puncture Site ABG pH (7.35-7.45) ABG pCO2 (35.0-45.0) mmHg ABG pO2 (80.0-100.0) mmHg ABG HCO3 (22.0-26.0) meq/L ABG O2 Saturation (96.0-97.0) % ABG Base Excess (-2-2.0) A-a Gradient mmHg O2 Delivery Device Oxygen Flow Rate FiO2 (21.00-100.00) % Sodium 138 (136-145) mEq/L Potassium 3.4 L (3.5-5.1) mEq/L Chloride 105 (98-107) mEq/L Carbon Dioxide 25 (21-32) mEq/L Anion Gap 11.4 (5-15) BUN 25 H (7-18) mg/dL Creatinine 1.1 (0.7-1.3) mg/dL Est Cr Clr Drug Dosing 53.41 mL/min Estimated GFR (MDRD) > 60 (>60) mL/min BUN/Creatinine Ratio 22.7 H (14-18) Glucose 146 H (70-99) mg/dL Calcium 8.8 (8.5-10.1) mg/dL Magnesium (1.8-2.4) mg/dL Total Bilirubin 1.5 H (0.2-1.0) mg/dL AST 18 (15-37) U/L ALT 26 (16-63) U/L Alkaline Phosphatase 102 (46-116) U/L Lactate Dehydrogenase (85-227) U/L CK-MB (CK-2) (0-3.6) ng/ml Troponin I (0.00-0.056) ng/mL C-Reactive Protein 19.0 H* (<1.0) mg/dL NT-Pro-B Natriuret Pep (0-450) pg/mL Total Protein 6.3 L (6.4-8.2) g/dl Albumin 2.2 L (3.4-5.0) g/dl Globulin 4.1 gm/dL Albumin/Globulin Ratio 0.5 L (1-2) Urine Color Yellow (Yellow) Urine Appearance Clear (Clear) Urine pH 6.0 (5.0-8.0) Ur Specific [place] > or = 1.030 (1.005-1.030) Urine Protein 1+ H (Negative) Urine Glucose (UA) Negative (Negative) Urine Ketones Negative (Negative) Urine Occult Blood 1+ H (Negative) Urine Nitrite Negative (Negative) Urine Bilirubin Negative (Negative) Urine Urobilinogen 1.0 (0.2-1.0) Ur Leukocyte Esterase Negative (Negative) Urine RBC 10-20 H (0-5) /hpf Urine WBC 0-5 (0-5) /hpf Ur Squamous Epith Cells 0-5 (0-5) /hpf Urine Bacteria Few (FEW) /hpf Urine Mucus Not seen (FEW) /hpf Med Orders - Current: Current Medications Acetaminophen (Acetaminophen 325 Mg Tab) 650 mg PO Q6H PRN PRN Reason: Pain (Mild 1-3)/fever Albuterol/Ipratropium (Albuterol/Ipratropium 3.0-0.5 Mg/3 Ml Neb Soln) 3 ml NEB Q4H PRN PRN Reason: Shortness Of Breath/wheezing Last Admin: 07/20/21 08:40 Dose: 3 ml Documented by: Amlodipine Besylate (Amlodipine 5 Mg Tab) 5 mg PO DAILY [facility] Last Admin: 07/20/21 09:02 Dose: 5 mg Documented by: Aspirin (Aspirin 325 Mg Tab.Ec) 325 mg PO DAILY [facility] Last Admin: 07/20/21 09:01 Dose: 325 mg Documented by: Cholecalciferol (Cholecalciferol (Vitamin D3) 25 Mcg Tab) 25 mcg PO DAILY [facility] Last Admin: 07/20/21 09:02 Dose: 25 mcg Documented by: Clopidogrel Bisulfate (Clopidogrel 75 Mg Tab) 75 mg PO DAILY [facility] Last Admin: 07/20/21 09:02 Dose: 75 mg Documented by: Dexamethasone (Dexamethasone 4 Mg Tab) 6 mg PO DAILY [facility] Last Admin: 07/20/21 09:03 Dose: 6 mg Documented by: Enoxaparin Sodium (Enoxaparin 40 Mg/0.4 Ml Syringe) 40 mg SUBCUT BID [facility] Last Admin: 07/20/21 09:00 Dose: 40 mg Documented by: Finasteride (Finasteride 5 Mg Tab) 5 mg PO DAILY [facility] Last Admin: 07/20/21 09:01 Dose: 5 mg Documented by: Guaifenesin (Guaifenesin 100 Mg/5 Ml Soln 10 Ml Ud Cup) 200 mg PO Q6H PRN PRN Reason: Cough Hydralazine HCl (Hydralazine 20 Mg/Ml Sdv) 10 mg IVPUSH Q4H PRN PRN Reason: Hypertension Promethazine HCl 12.5 mg/ (Sodium Chloride) 50.5 mls @ 100 mls/hr IV Q6H PRN PRN Reason: Nausea/Vomiting Ceftriaxone Sodium 2 gm/ (Sodium Chloride) 100 mls @ 200 mls/hr IV Q24H [facility] Last Admin: 07/19/21 19:17 Dose: 200 mls/hr Documented by: Doxycycline Hyclate 100 mg/ (Sodium Chloride) 100 mls @ 100 mls/hr IV Q12HR [facility] Last Admin: 07/20/21 09:00 Dose: 100 mls/hr Documented by: Remdesivir 100 mg/ Sodium (Chloride) 100 mls @ 100 mls/hr IV Q24H [facility] Stop: 07/23/21 17:59 Lisinopril (Lisinopril 20 Mg Tab) 20 mg PO DAILY [facility] Last Admin: 07/20/21 09:01 Dose: 20 mg Documented by: Magnesium Hydroxide (Magnesium Hydroxide 400 Mg/5 Ml Susp 30 Ml Cup) 30 ml PO DAILY PRN PRN Reason: Constipation Melatonin (Melatonin 3 Mg Tab) 3 mg PO BEDTIME [facility] Last Admin: 07/19/21 20:42 Dose: 3 mg Documented by: Metoprolol Succinate (Metoprolol Succinate 50 Mg Tab.Er) 200 mg PO DAILY [facility] Last Admin: 07/20/21 09:02 Dose: 200 mg Documented by: Morphine Sulfate (Morphine 2 Mg/Ml Syringe) 2 mg IVPUSH Q4H PRN PRN Reason: Pain (severe 7-10) Stop: 07/20/21 17:02 Oxycodone HCl (Oxycodone 5 Mg Tab) 5 mg PO Q6H PRN PRN Reason: Pain (moderate 4-6) Pantoprazole Sodium (Pantoprazole 40 Mg Tab.Cr) 40 mg PO ACBREAKFAST [facility] Last Admin: 07/20/21 05:30 Dose: 40 mg Documented by: Potassium Chloride (Potassium Chloride 20 Meq Tab.Er) 20 meq PO TID [facility] Stop: 07/20/21 15:01 Last Admin: 07/20/21 09:02 Dose: 20 meq Documented by: Rosuvastatin Calcium (Rosuvastatin 10 Mg Tab) 20 mg PO DAILY [facility] Last Admin: 07/20/21 09:01 Dose: 20 mg Documented by: Zinc Sulfate (Zinc Sulfate 220 Mg Cap) 220 mg PO DAILY [facility] Last Admin: 07/20/21 09:01 Dose: 220 mg Documented by: Discontinued Medications Dexamethasone (Dexamethasone 10 Mg/Ml Sdv) 6 mg IVPUSH ONETIME ONE Stop: 07/19/21 16:04 Last Admin: 07/19/21 16:47 Dose: 6 mg Documented by: Enoxaparin Sodium (Enoxaparin 40 Mg/0.4 Ml Syringe) 60 mg SUBCUT BID [facility] Dextrose/Sodium Chloride (Dextrose 5%-Normal Saline) 1,000 mls @ 75 mls/hr IV ASDIRECTED [facility] Last Admin: 07/19/21 16:11 Dose: 75 mls/hr Documented by: Remdesivir 200 mg/ Sodium (Chloride) 250 mls @ 250 mls/hr IV ONETIME ONE Stop: 07/19/21 16:02 Last Admin: 07/19/21 16:49 Dose: 250 mls/hr Documented by: Potassium Chloride (Potassium Chloride 20 Meq Tab.Er) 40 meq PO DAILY [facility] Potassium Chloride (Potassium Chloride 20 Meq Tab.Er) 40 meq PO ONETIME ONE Stop: 07/19/21 18:31 Last Admin: 07/19/21 19:16 Dose: 40 meq Documented by: - Exam Physical Findings Comments:: General: Alert, Oriented, Cooperative HEENT: Conjunctiva Clear, EOMI, Pupils Equal, Pupils Reactive Neck: Supple, Full Range of Motion. No: Lymphadenopathy, JVD Lungs: Decreased Breath Sounds, Crackles, Rhonchi Cardiovascular: Regular Rate, Regular Rhythm GI/Abdominal Exam: Normal Bowel Sounds, Soft, Non-Tender, No Organomegaly Extremities: Normal Inspection, Normal Range of Motion, Non-Tender, No Pedal Sohail ma Neurological: Cranial Nerves Intact, Strength Equal Bilateral, Sensation Intact Neuro Extensive - Mental Status: Alert, Oriented x3, Normal Mood/Affect Psychiatric: Normal Mood - Patient Data Lab Results Last 24 hrs: Laboratory Results - last 24 hr 07/19/21 07/19/21 07/19/21 Range/Units 16:05 16:05 16:05 WBC 7.57 (4.23-9.07) K/mm3 RBC 4.06 L (4.63-6.08) M/mm3 Hgb 12.7 L D (13.7-17.5) gm/dl Hct 37.4 L (40.1-51.0) % MCV 92.1 (79.0-92.2) fl MCH 31.3 (25.7-32.2) pg MCHC 34.0 (32.2-35.5) g/dl RDW Std Deviation 43.1 (35.1-43.9) fL Plt Count 245 D (163-337) K/mm3 MPV 9.7 (9.4-12.3) fl Neut % (Auto) 86.3 H (34.0-67.9) % Lymph % (Auto) 3.7 L (21.8-53.1) % [place] % (Auto) 7.0 (5.3-12.2) % Eos % (Auto) 0.3 L (0.8-7.0) Baso % (Auto) 0.3 (0.1-1.2) % Neut # (Auto) 6.54 H (1.78-5.38) K/mm3 Lymph # (Auto) 0.28 L (1.32-3.57) K/mm3 [place] # (Auto) 0.53 (0.30-0.82) K/mm3 Eos # (Auto) 0.02 L (0.04-0.54) K/mm3 Baso # (Auto) 0.02 (0.01-0.08) K/mm3 PT (9.7-12.0) SECONDS INR APTT (21.7-31.4) SECONDS D-Dimer, Quantitative 1.40 H (0.19-0.50) mg/L Puncture Site ABG pH (7.35-7.45) ABG pCO2 (35.0-45.0) mmHg ABG pO2 (80.0-100.0) mmHg ABG HCO3 (22.0-26.0) meq/L ABG O2 Saturation (96.0-97.0) % ABG Base Excess (-2-2.0) A-a Gradient mmHg O2 Delivery Device Oxygen Flow Rate FiO2 (21.00-100.00) % Sodium 138 (136-145) mEq/L Potassium 3.3 L (3.5-5.1) mEq/L Chloride 103 (98-107) mEq/L Carbon Dioxide 25 (21-32) mEq/L Anion Gap 13.3 (5-15) BUN 25 H (7-18) mg/dL Creatinine 1.3 (0.7-1.3) mg/dL Est Cr Clr Drug Dosing 45.20 mL/min Estimated GFR (MDRD) 54 (>60) mL/min BUN/Creatinine Ratio 19.2 H (14-18) Glucose 181 H (70-99) mg/dL Calcium 8.8 (8.5-10.1) mg/dL Magnesium 2.2 (1.8-2.4) mg/dL Total Bilirubin 2.9 H (0.2-1.0) mg/dL AST 22 (15-37) U/L ALT 24 (16-63) U/L Alkaline Phosphatase 114 (46-116) U/L Lactate Dehydrogenase 201 (85-227) U/L CK-MB (CK-2) 1.5 (0-3.6) ng/ml Troponin I < 0.017 (0.00-0.056) ng/mL C-Reactive Protein 22.9 H* (<1.0) mg/dL NT-Pro-B Natriuret Pep (0-450) pg/mL Total Protein 6.6 (6.4-8.2) g/dl Albumin 2.3 L (3.4-5.0) g/dl Globulin 4.3 gm/dL Albumin/Globulin Ratio 0.5 L (1-2) Urine Color (Yellow) Urine Appearance (Clear) Urine pH (5.0-8.0) Ur Specific [place] (1.005-1.030) Urine Protein (Negative) Urine Glucose (UA) (Negative) Urine Ketones (Negative) Urine Occult Blood (Negative) Urine Nitrite (Negative) Urine Bilirubin (Negative) Urine Urobilinogen (0.2-1.0) Ur Leukocyte Esterase (Negative) Urine RBC (0-5) /hpf Urine WBC (0-5) /hpf Ur Squamous Epith Cells (0-5) /hpf Urine Bacteria (FEW) /hpf Urine Mucus (FEW) /hpf 07/19/21 07/19/21 07/19/21 Range/Units 16:05 16:05 16:11 WBC (4.23-9.07) K/mm3 RBC (4.63-6.08) M/mm3 Hgb (13.7-17.5) gm/dl Hct (40.1-51.0) % MCV (79.0-92.2) fl MCH (25.7-32.2) pg MCHC (32.2-35.5) g/dl RDW Std Deviation (35.1-43.9) fL Plt Count (163-337) K/mm3 MPV (9.4-12.3) fl Neut % (Auto) (34.0-67.9) % Lymph % (Auto) (21.8-53.1) % [place] % (Auto) (5.3-12.2) % Eos % (Auto) (0.8-7.0) Baso % (Auto) (0.1-1.2) % Neut # (Auto) (1.78-5.38) K/mm3 Lymph # (Auto) (1.32-3.57) K/mm3 [place] # (Auto) (0.30-0.82) K/mm3 Eos # (Auto) (0.04-0.54) K/mm3 Baso # (Auto) (0.01-0.08) K/mm3 PT 11.6 (9.7-12.0) SECONDS INR 1.05 APTT 28.4 (21.7-31.4) SECONDS D-Dimer, Quantitative (0.19-0.50) mg/L Puncture Site Lt radial ABG pH 7.45 (7.35-7.45) ABG pCO2 31.6 L (35.0-45.0) mmHg ABG pO2 65.0 L (80.0-100.0) mmHg ABG HCO3 21.8 L (22.0-26.0) meq/L ABG O2 Saturation 91.5 L (96.0-97.0) % ABG Base Excess -0.9 (-2-2.0) A-a Gradient 123 mmHg O2 Delivery Device Nasal cannula Oxygen Flow Rate 3.0 FiO2 32.00 (21.00-100.00) % Sodium (136-145) mEq/L Potassium (3.5-5.1) mEq/L Chloride (98-107) mEq/L Carbon Dioxide (21-32) mEq/L Anion Gap (5-15) BUN (7-18) mg/dL Creatinine (0.7-1.3) mg/dL Est Cr Clr Drug Dosing mL/min Estimated GFR (MDRD) (>60) mL/min BUN/Creatinine Ratio (14-18) Glucose (70-99) mg/dL Calcium (8.5-10.1) mg/dL Magnesium (1.8-2.4) mg/dL Total Bilirubin (0.2-1.0) mg/dL AST (15-37) U/L ALT (16-63) U/L Alkaline Phosphatase (46-116) U/L Lactate Dehydrogenase (85-227) U/L CK-MB (CK-2) (0-3.6) ng/ml Troponin I (0.00-0.056) ng/mL C-Reactive Protein (<1.0) mg/dL NT-Pro-B Natriuret Pep 429 (0-450) pg/mL Total Protein (6.4-8.2) g/dl Albumin (3.4-5.0) g/dl Globulin gm/dL Albumin/Globulin Ratio (1-2) Urine Color (Yellow) Urine Appearance (Clear) Urine pH (5.0-8.0) Ur Specific [place] (1.005-1.030) Urine Protein (Negative) Urine Glucose (UA) (Negative) Urine Ketones (Negative) Urine Occult Blood (Negative) Urine Nitrite (Negative) Urine Bilirubin (Negative) Urine Urobilinogen (0.2-1.0) Ur Leukocyte Esterase (Negative) Urine RBC (0-5) /hpf Urine WBC (0-5) /hpf Ur Squamous Epith Cells (0-5) /hpf Urine Bacteria (FEW) /hpf Urine Mucus (FEW) /hpf 07/19/21 07/20/21 07/20/21 Range/Units 21:30 06:30 06:30 WBC 5.90 (4.23-9.07) K/mm3 RBC 3.78 L (4.63-6.08) M/mm3 Hgb 11.8 L (13.7-17.5) gm/dl Hct 35.3 L (40.1-51.0) % MCV 93.4 H (79.0-92.2) fl MCH 31.2 (25.7-32.2) pg MCHC 33.4 (32.2-35.5) g/dl RDW Std Deviation 42.7 (35.1-43.9) fL Plt Count 225 (163-337) K/mm3 MPV 9.9 (9.4-12.3) fl Neut % (Auto) 84.6 H (34.0-67.9) % Lymph % (Auto) 6.4 L (21.8-53.1) % [place] % (Auto) 6.9 (5.3-12.2) % Eos % (Auto) 0 L (0.8-7.0) Baso % (Auto) 0.2 (0.1-1.2) % Neut # (Auto) 4.99 (1.78-5.38) K/mm3 Lymph # (Auto) 0.38 L (1.32-3.57) K/mm3 [place] # (Auto) 0.41 (0.30-0.82) K/mm3 Eos # (Auto) 0.00 L (0.04-0.54) K/mm3 Baso # (Auto) 0.01 (0.01-0.08) K/mm3 PT (9.7-12.0) SECONDS INR APTT (21.7-31.4) SECONDS D-Dimer, Quantitative (0.19-0.50) mg/L Puncture Site ABG pH (7.35-7.45) ABG pCO2 (35.0-45.0) mmHg ABG pO2 (80.0-100.0) mmHg ABG HCO3 (22.0-26.0) meq/L ABG O2 Saturation (96.0-97.0) % ABG Base Excess (-2-2.0) A-a Gradient mmHg O2 Delivery Device Oxygen Flow Rate FiO2 (21.00-100.00) % Sodium 138 (136-145) mEq/L Potassium 3.4 L (3.5-5.1) mEq/L Chloride 105 (98-107) mEq/L Carbon Dioxide 25 (21-32) mEq/L Anion Gap 11.4 (5-15) BUN 25 H (7-18) mg/dL Creatinine 1.1 (0.7-1.3) mg/dL Est Cr Clr Drug Dosing 53.41 mL/min Estimated GFR (MDRD) > 60 (>60) mL/min BUN/Creatinine Ratio 22.7 H (14-18) Glucose 146 H (70-99) mg/dL Calcium 8.8 (8.5-10.1) mg/dL Magnesium (1.8-2.4) mg/dL Total Bilirubin 1.5 H (0.2-1.0) mg/dL AST 18 (15-37) U/L ALT 26 (16-63) U/L Alkaline Phosphatase 102 (46-116) U/L Lactate Dehydrogenase (85-227) U/L CK-MB (CK-2) (0-3.6) ng/ml Troponin I (0.00-0.056) ng/mL C-Reactive Protein 19.0 H* (<1.0) mg/dL NT-Pro-B Natriuret Pep (0-450) pg/mL Total Protein 6.3 L (6.4-8.2) g/dl Albumin 2.2 L (3.4-5.0) g/dl Globulin 4.1 gm/dL Albumin/Globulin Ratio 0.5 L (1-2) Urine Color Yellow (Yellow) Urine Appearance Clear (Clear) Urine pH 6.0 (5.0-8.0) Ur Specific [place] > or = 1.030 (1.005-1.030) Urine Protein 1+ H (Negative) Urine Glucose (UA) Negative (Negative) Urine Ketones Negative (Negative) Urine Occult Blood 1+ H (Negative) Urine Nitrite Negative (Negative) Urine Bilirubin Negative (Negative) Urine Urobilinogen 1.0 (0.2-1.0) Ur Leukocyte Esterase Negative (Negative) Urine RBC 10-20 H (0-5) /hpf Urine WBC 0-5 (0-5) /hpf Ur Squamous Epith Cells 0-5 (0-5) /hpf Urine Bacteria Few (FEW) /hpf Urine Mucus Not seen (FEW) /hpf Result Diagrams: 07/20/21 06:30 07/20/21 06:30 Sepsis Event Note - Evaluation Sepsis Screening Result: No Definite Risk - Focused Exam Vital Signs: Vital Signs Temp Pulse Resp BP Pulse Ox Pulse Ox 07/20/21 11:38 36.4 C 77 20 119/53 L 07/20/21 09:02 81 140/59 L 07/20/21 09:01 140/59 L 07/20/21 08:41 91 L 07/20/21 08:18 36.4 C 81 20 140/59 L 07/20/21 05:34 36.4 C 81 18 117/59 L 91 L - Problem List Review Problem List Initiated/Reviewed/Updated: Yes - My Orders Last 24 Hours: My Active Orders 07/19/21 16:58 Patient Status [ADT] Routine Oxygen Therapy [RC] PRN VTE/DVT Education [RC] DAILY Vital Signs [RC] Q4HR OT Evaluation and Treatment [CONS] Routine PT Evaluation and Treatment [CONS] Routine Acetaminophen [TylenoL] 650 mg PO Q6H PRN Albuterol/Ipratropium [DuoNeb 3.0-0.5 MG/3 ML] 3 ml NEB Q4H PRN Morphine 2 mg IVPUSH Q4H PRN Promethazine [Phenergan] 12.5 mg Sodium Chloride 0.9% [Normal Saline] 50 ml IV Q6H oxyCODONE 5 mg PO Q6H PRN Blood Culture x2 Reflex Set [OM.PC] Stat Resuscitation Status Routine 07/19/21 17:00 Cardiac Monitoring [RC] CONTINUOUS Intake and Output [RC] 04,16 Pulse Oximetry [RC] CONTINUOUS 2 Gram Sodium Diet [DIET] Sequential Compression Device [OM.PC] Per Unit Routine 07/19/21 17:01 Antiembolic Devices [RC] BID 07/19/21 17:03 RT Aerosol Therapy [RC] ASDIRECTED 07/19/21 17:12 guaiFENesin [Robitussin] 200 mg PO Q6H PRN 07/19/21 17:13 hydrALAZINE [Apresoline] 10 mg IVPUSH Q4H PRN 07/19/21 17:22 BLOOD CULTURE [MREF] Stat 07/19/21 17:30 BLOOD CULTURE [MREF] Stat 07/19/21 18:00 Zinc Sulfate [Zincate] 220 mg PO DAILY cefTRIAXone [Rocephin] 2 gm Sodium Chloride 0.9% [Normal Saline] 100 ml IV Q24H 07/19/21 19:19 Chest Physiotherapy [RT Chest Physiotherapy] [RC] ASDIRECTED RT Incentive Spirometry [RC] ASDIRECTED 07/19/21 21:00 Doxycycline [Vibramycin] 100 mg Sodium Chloride 0.9% [Normal Saline] 100 ml IV Q12HR Enoxaparin [Lovenox] 40 mg SUBCUT BID Melatonin 3 mg PO BEDTIME 07/19/21 21:27 RESPIRATORY CULT [MREF] Stat 07/20/21 02:53 Up With Assistance [RC] BID 07/20/21 06:00 Pantoprazole [ProTONIX] 40 mg PO ACBREAKFAST 07/20/21 09:00 Aspirin [Ecotrin] 325 mg PO DAILY Cholecalciferol (Vitamin D3) [Vitamin D3] 25 mcg PO DAILY Clopidogrel [Plavix] 75 mg PO DAILY Finasteride [Proscar] 5 mg PO DAILY Metoprolol Succinate [Toprol XL] 200 mg PO DAILY Potassium Chloride [Klor-Con M20] 20 meq PO TID Rosuvastatin [Crestor] 20 mg PO DAILY amLODIPine [Norvasc] 5 mg PO DAILY dexAMETHasone 6 mg PO DAILY lisinopriL [Prinivil] 20 mg PO DAILY 07/20/21 10:40 Magnesium Hydroxide [Milk of Magnesia] 30 ml PO DAILY PRN 07/20/21 17:00 Remdesivir 100 mg Sodium Chloride 0.9% [Normal Saline] 100 ml IV Q24H 07/21/21 05:00 C-REACTIVE PROTEIN [CHEM] DAILY CBC WITH AUTO DIFF [HEME] DAILY COMPREHENSIVE METABOLIC PN,CMP [CHEM] DAILY 07/22/21 05:00 C-REACTIVE PROTEIN [CHEM] DAILY CBC WITH AUTO DIFF [HEME] DAILY COMPREHENSIVE METABOLIC PN,CMP [CHEM] DAILY 07/23/21 05:00 C-REACTIVE PROTEIN [CHEM] DAILY CBC WITH AUTO DIFF [HEME] DAILY COMPREHENSIVE METABOLIC PN,CMP [CHEM] DAILY 07/24/21 05:00 C-REACTIVE PROTEIN [CHEM] DAILY CBC WITH AUTO DIFF [HEME] DAILY COMPREHENSIVE METABOLIC PN,CMP [CHEM] DAILY - Plan Plan:: Patient is a 75-year-old male with a history of CAD and hypertension who presented to the ER due to worsening shortness of breath and oxygen desaturation. Symptoms started on July 06, 2021. He had a positive COVID-1 9 test on July 11 Assessment and plan: Acute hypoxic respiratory failure Pulse ox Oxygen therapy, high flow/BiPAP as needed to keep oxygen saturation greater than 92% Covid 19 pneumonia X-ray showed bilateral pneumonia (x-ray done in PCP office) Blood culture no growth so far Sputum culture Ceftriaxone and doxycycline 5-day course of remdesivir 10-day course of dexamethasone Patient is on aspirin and Plavix for his CAD, s/p stent. His D-dimer mildly elevated to 1.40. Consider patient's age and condition, I would like to continue aspirin and Plavix. But I will will start him on Lovenox 40 mg twice daily. Inhalers Repeat CBC, CMP, CRP in morning CAD, s/p 1 stent placement Continue aspirin and plavix Continue Lipitor Elevation of D-dimer, 1.40 Most likely due to Covid 19 infection. I would not like to do CTA for him for the mild elevation of D-dimer in the setting of positive Covid 19. Continue aspirin, Plavix and statin. Lovenox 40 mg twice daily Microscopic hematuria I would like to continue aspirin, Plavix, and Lovenox 40 mg twice daily Repeat a CBC in morning Repeat a urinalysis Hypokalemia Replaced and repeat it Hyperbilirubinemia, 2.9 Improving AST, ALS and Alk phos WNL Etiology unknown Repeat total bilirubin in morning Hypertension Continue amlodipine 5mg daily, ramipril 10mg daily, metoprolol 200mg daily, Hydralazine as needed DVT prophylaxis: Lovenox Disposition: 1-2 more days
[2021-07-20] MEDS: REMDESIVIR 100 MG in Sodium Chloride 0.9% 100 ML IV SCH (16:08)
[2021-07-20] MEDS: cefTRIAXone 2 GM in Sodium Chloride 0.9% 100 ML IV SCH (17:32)
[2021-07-20] MEDS: Melatonin 3 MG Tab PO SCH (21:34)
[2021-07-21] MEDS: Pantoprazole 40 MG Tab.CR PO SCH (05:10)
[2021-07-21] MEDS: Albuterol/Ipratropium 3.0-0.5 MG/3 ML Neb Soln NEB PRN ×3 (08:03→20:03)
[2021-07-21] MEDS: Zinc Sulfate 220 MG Cap PO SCH (09:46)
[2021-07-21] MEDS: Aspirin 325 MG Tab.EC PO SCH (09:46)
[2021-07-21] MEDS: Clopidogrel 75 MG Tab PO SCH (09:46)
[2021-07-21] MEDS: Finasteride 5 MG Tab PO SCH (09:47)
[2021-07-21] MEDS: Cholecalciferol (Vitamin D3) 25 MCG Tab PO SCH (09:47)
[2021-07-21] MEDS: Rosuvastatin 10 MG Tab PO SCH (09:47)
[2021-07-21] MEDS: Enoxaparin 40 MG/0.4 ML Syringe SUBCUT SCH ×2 (09:47→21:06)
[2021-07-21] MEDS: Dexamethasone 4 MG Tab PO SCH (09:48)
[2021-07-21] MEDS: Doxycycline 100 MG in Sodium Chloride 0.9% 100 ML IV SCH ×2 (09:50→21:03)
[2021-07-21] MEDS ORDERED: Benzonatate 100 MG Cap PO PRN (10:27)
[2021-07-21] MEDS ORDERED: Metoprolol Succinate 50 MG Tab.ER PO ONE (10:29)
[2021-07-21] MEDS: amLODIPine 5 MG Tab PO SCH (11:21)
[2021-07-21] MEDS: Lisinopril 20 MG Tab PO SCH (11:26)
--- NOTE | 2021-07-21 14:02 | PCM.PN ---
- General Info Date of Service: 07/21/21 Admission Dx/Problem (Free Text): Admission Diagnosis/Problem Admission Diagnosis/Problem Pneumonia Subjective Update: Patient is a 75-year-old male with a history of CAD and hypertension who presented to the ER due to worsening shortness of breath and oxygen desaturation. Patient had fever, chills, fatigue, and weakness on 07-06-2021. He had a positive COVID-19 test on July 11. Patient complains of watery diarrhea, BM x 4 today. Denies fever, chills, nausea, vomiting or abd pain. He is now on 5-5.5 L CRP 19 today from 22.9 yesterday Potassium 3.4 Total bilirubin 1.0 today. 2.9 on admission - Review of Systems Systems Review Comment:: Positive for diarrhea, fatigue, cough, and shortness of breath. All other systems were reviewed and are negative. - Patient Data Vitals - Most Recent: Last Vital Signs Temp 36.8 C 07/21/21 11:25 Pulse 92 07/21/21 11:27 Resp 24 H 07/21/21 11:25 BP 129/58 L 07/21/21 11:27 Pulse Ox 91 L 07/21/21 11:25 Weight - Most Recent: 84.912 kg I&O - Last 24 Hours: Intake & Output 07/20/21 07/21/21 07/21/21 22:59 06:59 14:59 Intake Total 860 1200 Output Total 775 Balance 860 425 Lab Results Last 24 Hours: Laboratory Results - last 24 hr 07/21/21 07/21/21 Range/Units 06:25 06:25 WBC 9.45 H (4.23-9.07) K/mm3 RBC 3.82 L (4.63-6.08) M/mm3 Hgb 12.0 L (13.7-17.5) gm/dl Hct 36.2 L (40.1-51.0) % MCV 94.8 H (79.0-92.2) fl MCH 31.4 (25.7-32.2) pg MCHC 33.1 (32.2-35.5) g/dl RDW Std Deviation 43.1 (35.1-43.9) fL Plt Count 267 (163-337) K/mm3 MPV 9.6 (9.4-12.3) fl Neut % (Auto) 81.7 H (34.0-67.9) % Lymph % (Auto) 7.0 L (21.8-53.1) % [place] % (Auto) 9.4 (5.3-12.2) % Eos % (Auto) 0 L (0.8-7.0) Baso % (Auto) 0.2 (0.1-1.2) % Neut # (Auto) 7.72 H (1.78-5.38) K/mm3 Lymph # (Auto) 0.66 L (1.32-3.57) K/mm3 [place] # (Auto) 0.89 H (0.30-0.82) K/mm3 Eos # (Auto) 0.00 L (0.04-0.54) K/mm3 Baso # (Auto) 0.02 (0.01-0.08) K/mm3 Sodium 143 (136-145) mEq/L Potassium 3.9 (3.5-5.1) mEq/L Chloride 109 H (98-107) mEq/L Carbon Dioxide 25 (21-32) mEq/L Anion Gap 12.9 (5-15) BUN 23 H (7-18) mg/dL Creatinine 1.1 (0.7-1.3) mg/dL Est Cr Clr Drug Dosing 53.41 mL/min Estimated GFR (MDRD) > 60 (>60) mL/min BUN/Creatinine Ratio 20.9 H (14-18) Glucose 123 H (70-99) mg/dL Calcium 8.7 (8.5-10.1) mg/dL Total Bilirubin 1.0 (0.2-1.0) mg/dL AST 20 (15-37) U/L ALT 22 (16-63) U/L Alkaline Phosphatase 96 (46-116) U/L C-Reactive Protein 8.9 H* (<1.0) mg/dL Total Protein 6.2 L (6.4-8.2) g/dl Albumin 2.2 L (3.4-5.0) g/dl Globulin 4.0 gm/dL Albumin/Globulin Ratio 0.6 L (1-2) Mukesh Results Last 24 Hours: Microbiology 07/19/21 17:22 Blood Culture - Preliminary Blood - Venous - Lab Draw 07/19/21 17:30 Blood Culture - Preliminary Blood - Venous 07/19/21 21:27 Gram Stain - Final Sputum - Expectorated Med Orders - Current: Current Medications Acetaminophen (Acetaminophen 325 Mg Tab) 650 mg PO Q6H PRN PRN Reason: Pain (Mild 1-3)/fever Albuterol/Ipratropium (Albuterol/Ipratropium 3.0-0.5 Mg/3 Ml Neb Soln) 3 ml NEB Q4H PRN PRN Reason: Shortness Of Breath/wheezing Last Admin: 07/21/21 08:03 Dose: 3 ml Documented by: Amlodipine Besylate (Amlodipine 5 Mg Tab) 5 mg PO DAILY [facility] Last Admin: 07/21/21 11:21 Dose: 5 mg Documented by: Aspirin (Aspirin 325 Mg Tab.Ec) 325 mg PO DAILY [facility] Last Admin: 07/21/21 09:46 Dose: 325 mg Documented by: Benzonatate (Benzonatate 100 Mg Cap) 100 mg PO Q8H PRN PRN Reason: Cough Cholecalciferol (Cholecalciferol (Vitamin D3) 25 Mcg Tab) 25 mcg PO DAILY [facility] Last Admin: 07/21/21 09:47 Dose: 25 mcg Documented by: Clopidogrel Bisulfate (Clopidogrel 75 Mg Tab) 75 mg PO DAILY [facility] Last Admin: 07/21/21 09:46 Dose: 75 mg Documented by: Dexamethasone (Dexamethasone 4 Mg Tab) 6 mg PO DAILY [facility] Last Admin: 07/21/21 09:48 Dose: 6 mg Documented by: Enoxaparin Sodium (Enoxaparin 40 Mg/0.4 Ml Syringe) 40 mg SUBCUT BID [facility] Last Admin: 07/21/21 09:47 Dose: 40 mg Documented by: Finasteride (Finasteride 5 Mg Tab) 5 mg PO DAILY [facility] Last Admin: 07/21/21 09:47 Dose: 5 mg Documented by: Guaifenesin (Guaifenesin 100 Mg/5 Ml Soln 10 Ml Ud Cup) 200 mg PO Q6H PRN PRN Reason: Cough Hydralazine HCl (Hydralazine 20 Mg/Ml Sdv) 10 mg IVPUSH Q4H PRN PRN Reason: Hypertension Promethazine HCl 12.5 mg/ (Sodium Chloride) 50.5 mls @ 100 mls/hr IV Q6H PRN PRN Reason: Nausea/Vomiting Ceftriaxone Sodium 2 gm/ (Sodium Chloride) 100 mls @ 200 mls/hr IV Q24H [facility] Last Admin: 07/20/21 17:32 Dose: 200 mls/hr Documented by: Doxycycline Hyclate 100 mg/ (Sodium Chloride) 100 mls @ 100 mls/hr IV Q12HR [facility] Last Admin: 07/21/21 09:50 Dose: 100 mls/hr Documented by: Remdesivir 100 mg/ Sodium (Chloride) 100 mls @ 100 mls/hr IV Q24H [facility] Stop: 07/23/21 17:59 Last Admin: 07/20/21 16:08 Dose: 100 mls/hr Documented by: Lisinopril (Lisinopril 20 Mg Tab) 20 mg PO DAILY [facility] Last Admin: 07/21/21 11:26 Dose: 20 mg Documented by: Magnesium Hydroxide (Magnesium Hydroxide 400 Mg/5 Ml Susp 30 Ml Cup) 30 ml PO DAILY PRN PRN Reason: Constipation Last Admin: 07/20/21 16:07 Dose: 30 ml Documented by: Melatonin (Melatonin 3 Mg Tab) 3 mg PO BEDTIME [facility] Last Admin: 07/20/21 21:34 Dose: 3 mg Documented by: Oxycodone HCl (Oxycodone 5 Mg Tab) 5 mg PO Q6H PRN PRN Reason: Pain (moderate 4-6) Pantoprazole Sodium (Pantoprazole 40 Mg Tab.Cr) 40 mg PO ACBREAKFAST [facility] Last Admin: 07/21/21 05:10 Dose: 40 mg Documented by: Rosuvastatin Calcium (Rosuvastatin 10 Mg Tab) 20 mg PO DAILY [facility] Last Admin: 07/21/21 09:47 Dose: 20 mg Documented by: Zinc Sulfate (Zinc Sulfate 220 Mg Cap) 220 mg PO DAILY [facility] Last Admin: 07/21/21 09:46 Dose: 220 mg Documented by: Discontinued Medications Dexamethasone (Dexamethasone 10 Mg/Ml Sdv) 6 mg IVPUSH ONETIME ONE Stop: 07/19/21 16:04 Last Admin: 07/19/21 16:47 Dose: 6 mg Documented by: Enoxaparin Sodium (Enoxaparin 40 Mg/0.4 Ml Syringe) 60 mg SUBCUT BID [facility] Dextrose/Sodium Chloride (Dextrose 5%-Normal Saline) 1,000 mls @ 75 mls/hr IV ASDIRECTED [facility] Last Admin: 07/19/21 16:11 Dose: 75 mls/hr Documented by: Remdesivir 200 mg/ Sodium (Chloride) 250 mls @ 250 mls/hr IV ONETIME ONE Stop: 07/19/21 16:02 Last Admin: 07/19/21 16:49 Dose: 250 mls/hr Documented by: Metoprolol Succinate (Metoprolol Succinate 50 Mg Tab.Er) 200 mg PO DAILY [facility] Last Admin: 07/20/21 09:02 Dose: 200 mg Documented by: Metoprolol Succinate (Metoprolol Succinate 50 Mg Tab.Er) 50 mg PO DAILY ONE Stop: 07/21/21 10:30 Last Admin: 07/21/21 11:27 Dose: 50 mg Documented by: Morphine Sulfate (Morphine 2 Mg/Ml Syringe) 2 mg IVPUSH Q4H PRN PRN Reason: Pain (severe 7-10) Stop: 07/20/21 17:02 Potassium Chloride (Potassium Chloride 20 Meq Tab.Er) 40 meq PO DAILY [facility] Potassium Chloride (Potassium Chloride 20 Meq Tab.Er) 40 meq PO ONETIME ONE Stop: 07/19/21 18:31 Last Admin: 07/19/21 19:16 Dose: 40 meq Documented by: Potassium Chloride (Potassium Chloride 20 Meq Tab.Er) 20 meq PO TID [facility] Stop: 07/20/21 15:01 Last Admin: 07/20/21 16:07 Dose: 20 meq Documented by: - Exam Physical Findings Comments:: General: Alert, Oriented, Cooperative HEENT: Conjunctiva Clear, EOMI, Pupils Equal, Pupils Reactive Neck: Supple, Full Range of Motion. No: Lymphadenopathy, JVD Lungs: Decreased Breath Sounds, Crackles, Rhonchi Cardiovascular: Regular Rate, Regular Rhythm GI/Abdominal Exam: Normal Bowel Sounds, Soft, Non-Tender, No Organomegaly Extremities: Normal Inspection, Normal Range of Motion, Non-Tender, No Pedal Edema Neurological: Cranial Nerves Intact, Strength Equal Bilateral, Sensation Intact Neuro Extensive - Mental Status: Alert, Oriented x3, Normal Mood/Affect Psychiatric: Normal Mood - Patient Data Lab Results Last 24 hrs: Laboratory Results - last 24 hr 07/21/21 07/21/21 Range/Units 06:25 06:25 WBC 9.45 H (4.23-9.07) K/mm3 RBC 3.82 L (4.63-6.08) M/mm3 Hgb 12.0 L (13.7-17.5) gm/dl Hct 36.2 L (40.1-51.0) % MCV 94.8 H (79.0-92.2) fl MCH 31.4 (25.7-32.2) pg MCHC 33.1 (32.2-35.5) g/dl RDW Std Deviation 43.1 (35.1-43.9) fL Plt Count 267 (163-337) K/mm3 MPV 9.6 (9.4-12.3) fl Neut % (Auto) 81.7 H (34.0-67.9) % Lymph % (Auto) 7.0 L (21.8-53.1) % [place] % (Auto) 9.4 (5.3-12.2) % Eos % (Auto) 0 L (0.8-7.0) Baso % (Auto) 0.2 (0.1-1.2) % Neut # (Auto) 7.72 H (1.78-5.38) K/mm3 Lymph # (Auto) 0.66 L (1.32-3.57) K/mm3 [place] # (Auto) 0.89 H (0.30-0.82) K/mm3 Eos # (Auto) 0.00 L (0.04-0.54) K/mm3 Baso # (Auto) 0.02 (0.01-0.08) K/mm3 Sodium 143 (136-145) mEq/L Potassium 3.9 (3.5-5.1) mEq/L Chloride 109 H (98-107) mEq/L Carbon Dioxide 25 (21-32) mEq/L Anion Gap 12.9 (5-15) BUN 23 H (7-18) mg/dL Creatinine 1.1 (0.7-1.3) mg/dL Est Cr Clr Drug Dosing 53.41 mL/min Estimated GFR (MDRD) > 60 (>60) mL/min BUN/Creatinine Ratio 20.9 H (14-18) Glucose 123 H (70-99) mg/dL Calcium 8.7 (8.5-10.1) mg/dL Total Bilirubin 1.0 (0.2-1.0) mg/dL AST 20 (15-37) U/L ALT 22 (16-63) U/L Alkaline Phosphatase 96 (46-116) U/L C-Reactive Protein 8.9 H* (<1.0) mg/dL Total Protein 6.2 L (6.4-8.2) g/dl Albumin 2.2 L (3.4-5.0) g/dl Globulin 4.0 gm/dL Albumin/Globulin Ratio 0.6 L (1-2) Result Diagrams: 07/21/21 06:25 07/21/21 06:25 Mukesh Results Last 24 hrs: Microbiology 07/19/21 17:22 Blood Culture - Preliminary Blood - Venous - Lab Draw 07/19/21 17:30 Blood Culture - Preliminary Blood - Venous 07/19/21 21:27 Gram Stain - Final Sputum - Expectorated Sepsis Event Note - Evaluation Sepsis Screening Result: No Definite Risk - Focused Exam Vital Signs: Vital Signs Temp Pulse Resp BP BP Pulse Ox Pulse Ox 07/21/21 11:27 92 129/58 L 07/21/21 11:26 129/58 L 07/21/21 11:25 36.8 C 95 24 H 129/58 L 91 L 07/21/21 11:21 129/58 L 07/21/21 08:03 90 L 07/21/21 07:38 36.4 C 67 18 126/58 L 91 L 07/21/21 05:07 36.4 C 70 20 89 L 07/21/21 04:00 124/57 L - Problem List Review Problem List Initiated/Reviewed/Updated: Yes - My Orders Last 24 Hours: My Active Orders 07/20/21 17:00 Remdesivir 100 mg Sodium Chloride 0.9% [Normal Saline] 100 ml IV Q24H 07/21/21 10:27 Benzonatate [Tessalon Perles] 100 mg PO Q8H PRN 07/22/21 05:00 C-REACTIVE PROTEIN [CHEM] DAILY CBC WITH AUTO DIFF [HEME] DAILY COMPREHENSIVE METABOLIC PN,CMP [CHEM] DAILY 07/23/21 05:00 C-REACTIVE PROTEIN [CHEM] DAILY CBC WITH AUTO DIFF [HEME] DAILY COMPREHENSIVE METABOLIC PN,CMP [CHEM] DAILY 07/24/21 05:00 C-REACTIVE PROTEIN [CHEM] DAILY CBC WITH AUTO DIFF [HEME] DAILY COMPREHENSIVE METABOLIC PN,CMP [CHEM] DAILY - Plan Plan:: Patient is a 75-year-old male with a history of CAD and hypertension who presented to the ER due to worsening shortness of breath and oxygen desaturation. Symptoms started on July 06, 2021. He had a positive COVID- 19 test on July 11 Assessment and plan: Acute hypoxic respiratory failure Pulse ox Oxygen therapy, high flow/BiPAP as needed to keep oxygen saturation greater than 92% Covid 19 pneumonia X-ray showed bilateral pneumonia (x-ray done in PCP office) Blood culture no growth so far Sputum culture Ceftriaxone and doxycycline 5-day course of remdesivir 10-day course of dexamethasone Patient is on aspirin and Plavix for his CAD, s/p stent. His D-dimer mildly elevated to 1.40. Consider patient's age and condition, I would like to continue aspirin 325mg daily and Plavix 75mg daily. But I will will start him on Lovenox 40 mg twice daily. Inhalers Repeat CBC, CMP, CRP in morning CAD, s/p 1 stent placement Continue aspirin and plavix Continue rosuvastatin 20mg daily Elevation of D-dimer, 1.40 Most likely due to Covid 19 infection. I would not like to do CTA for him for the mild elevation of D-dimer in the setting of positive Covid 19. Continue aspirin, Plavix and statin. Lovenox 40 mg twice daily Microscopic hematuria I would like to continue aspirin, Plavix, and Lovenox 40 mg twice daily Hb 12.0 today and 11.8 yesterday Repeat a CBC in morning Repeat urinalysis in 2 days Hypokalemia Replaced and repeat it Hyperbilirubinemia, 2.9 1.0 today AST, ALS and Alk phos WNL Etiology unknown Repeat total bilirubin in morning Hypertension decreased amlodipine to 5mg daily from 10mg daily and metoprolol to 50mg daily from 100mg daily. Continue lisinopril 20mg daily. Hydralazine as needed Adjust meds based on BP DVT prophylaxis: Lovenox Code status: full RN and I met pt in his room. I explained CPR and intubation to him who agreed to have both cpr and intubation. Disposition: possibly 2 more days
[2021-07-21] MEDS: REMDESIVIR 100 MG in Sodium Chloride 0.9% 100 ML IV SCH (17:12)
[2021-07-21] MEDS: cefTRIAXone 2 GM in Sodium Chloride 0.9% 100 ML IV SCH (18:17)
[2021-07-21] MEDS: Melatonin 3 MG Tab PO SCH (21:07)
[2021-07-22] MEDS: Pantoprazole 40 MG Tab.CR PO SCH ×2 (04:55→06:22)
--- NOTE | 2021-07-22 08:07 | PCM.PN ---
<Jean Carlos Carter - Last Filed: 07/22/21 12:28> - General Info Date of Service: 07/22/21 Admission Dx/Problem (Free Text): Admission Diagnosis/Problem Admission Diagnosis/Problem Pneumonia Subjective Update: This is a 75-year-old male treated for COVID-19 pneumonia. Blood cultures have been negative thus far however respiratory culture grew out staph aureus and H. influenzae. Patient is on Rocephin and doxycycline for this. He has been rec eiving dexamethasone and remdesivir. He will complete his treatment for remdesivir tomorrow. Patient's home metoprolol was reportedly decreased and there was some issues with the patient not getting his metoprolol today. His heart rate has been in the low 100s. We will resume daily 50 mg metoprolol which was decreased due to hypotension for now. May need to increase to regular home metoprolol pending continued tachycardia. Labs today show WBC of 5.71. Hemoglobin 12.3. Blood 239,000. Neutrophils are elevated at 74.0%. D-dimer was rechecked and was 0.89 which is down from admission. Sodium 144. Potassium 4.0. Chloride 109. Carbon dioxide 22. Anion gap 17.0. BUN is 21. Creatinine 1.2. GFR is 59. Glucose 114. Bilirubin 0.9. AST is 19, ALT 25, alkaline phosphatase 93. CRP is down to 4.8. Protein is down to 6.1. Albumin is up to 2.3. Plan will be for discharge in 1 to 2 days pending continued improvement and possible oxygen wean. Patient remains on 3 L today. Functional Status: Reports: Pain Controlled, Tolerating Diet, Ambulating, Urinat ing, Incentive Spirometry, Other (Acapella ). Denies: New Symptoms - Review of Systems General: Reports: No Symptoms, Weakness (improving ). Denies: Fever, Fatigue, Malaise, Chills HEENT: Reports: No Symptoms. Denies: Headaches, Sore Throat Pulmonary: Reports: No Symptoms, Shortness of Breath, Cough Cardiovascular: Reports: No Symptoms, Dyspnea on Exertion. Denies: Chest Pain, Palpitations, Edema Gastrointestinal: Reports: Diarrhea. Denies: Abdominal Pain, Constipation, Nausea, Vomiting Genitourinary: Reports: No Symptoms. Denies: Pain Musculoskeletal: Reports: No Symptoms Skin: Reports: No Symptoms. Denies: Cyanosis Neurological: Reports: No Symptoms. Denies: Confusion, Dizziness, Headache, Numbness, Pre-Existing Deficit, Syncope, Tingling, Difficulty Walking, Weakness, Gait Disturbance Psychiatric: Reports: No Symptoms - Patient Data Vitals - Most Recent: Last Vital Signs Temp 97.7 F 07/22/21 04:49 Pulse 72 07/22/21 04:49 Resp 20 07/22/21 04:49 BP 142/69 H 07/22/21 04:49 Pulse Ox 93 L 07/22/21 05:19 Weight - Most Recent: 83.779 kg I&O - Last 24 Hours: Intake & Output 07/21/21 07/22/21 07/22/21 22:59 06:59 14:59 Intake Total 850 600 Output Total 450 900 Balance 400 -300 Lab Results Last 24 Hours: Laboratory Results - last 24 hr 07/22/21 07/22/21 Range/Units 04:52 04:52 WBC 5.71 (4.23-9.07) K/mm3 RBC 3.92 L (4.63-6.08) M/mm3 Hgb 12.3 L (13.7-17.5) gm/dl Hct 37.5 L (40.1-51.0) % MCV 95.7 H (79.0-92.2) fl MCH 31.4 (25.7-32.2) pg MCHC 32.8 (32.2-35.5) g/dl RDW Std Deviation 43.7 (35.1-43.9) fL Plt Count 239 (163-337) K/mm3 MPV 9.8 (9.4-12.3) fl Neut % (Auto) 74.0 H (34.0-67.9) % Lymph % (Auto) 11.6 L (21.8-53.1) % [place] % (Auto) 10.0 (5.3-12.2) % Eos % (Auto) 0 L (0.8-7.0) Baso % (Auto) 0.2 (0.1-1.2) % Neut # (Auto) 4.23 (1.78-5.38) K/mm3 Lymph # (Auto) 0.66 L (1.32-3.57) K/mm3 [place] # (Auto) 0.57 (0.30-0.82) K/mm3 Eos # (Auto) 0.00 L (0.04-0.54) K/mm3 Baso # (Auto) 0.01 (0.01-0.08) K/mm3 Sodium 144 (136-145) mEq/L Potassium 4.0 (3.5-5.1) mEq/L Chloride 109 H (98-107) mEq/L Carbon Dioxide 22 (21-32) mEq/L Anion Gap 17.0 H (5-15) BUN 21 H (7-18) mg/dL Creatinine 1.2 (0.7-1.3) mg/dL Est Cr Clr Drug Dosing 48.96 mL/min Estimated GFR (MDRD) 59 (>60) mL/min BUN/Creatinine Ratio 17.5 (14-18) Glucose 114 H (70-99) mg/dL Calcium 8.6 (8.5-10.1) mg/dL Total Bilirubin 0.9 (0.2-1.0) mg/dL AST 19 (15-37) U/L ALT 25 (16-63) U/L Alkaline Phosphatase 93 (46-116) U/L C-Reactive Protein 4.8 H* (<1.0) mg/dL Total Protein 6.1 L (6.4-8.2) g/dl Albumin 2.3 L (3.4-5.0) g/dl Globulin 3.8 gm/dL Albumin/Globulin Ratio 0.6 L (1-2) Mukesh Results Last 24 Hours: Microbiology 07/19/21 21:27 Respiratory Culture - Preliminary Sputum - Expectorated Staphylococcus Aureus Gram Stain - Final 07/19/21 17:22 Blood Culture - Preliminary Blood - Venous - Lab Draw 07/19/21 17:30 Blood Culture - Preliminary Blood - Venous Med Orders - Current: Current Medications Acetaminophen (Acetaminophen 325 Mg Tab) 650 mg PO Q6H PRN PRN Reason: Pain (Mild 1-3)/fever Albuterol/Ipratropium (Albuterol/Ipratropium 3.0-0.5 Mg/3 Ml Neb Soln) 3 ml NEB Q4H PRN PRN Reason: Shortness Of Breath/wheezing Last Admin: 07/21/21 20:03 Dose: 3 ml Documented by: Amlodipine Besylate (Amlodipine 5 Mg Tab) 5 mg PO DAILY [facility] Last Admin: 07/21/21 11:21 Dose: 5 mg Documented by: Aspirin (Aspirin 325 Mg Tab.Ec) 325 mg PO DAILY [facility] Last Admin: 07/21/21 09:46 Dose: 325 mg Documented by: Benzonatate (Benzonatate 100 Mg Cap) 100 mg PO Q8H PRN PRN Reason: Cough Cholecalciferol (Cholecalciferol (Vitamin D3) 25 Mcg Tab) 25 mcg PO DAILY [facility] Last Admin: 07/21/21 09:47 Dose: 25 mcg Documented by: Clopidogrel Bisulfate (Clopidogrel 75 Mg Tab) 75 mg PO DAILY [facility] Last Admin: 07/21/21 09:46 Dose: 75 mg Documented by: Dexamethasone (Dexamethasone 4 Mg Tab) 6 mg PO DAILY [facility] Last Admin: 07/21/21 09:48 Dose: 6 mg Documented by: Enoxaparin Sodium (Enoxaparin 40 Mg/0.4 Ml Syringe) 40 mg SUBCUT BID [facility] Last Admin: 07/21/21 21:06 Dose: 40 mg Documented by: Finasteride (Finasteride 5 Mg Tab) 5 mg PO DAILY [facility] Last Admin: 07/21/21 09:47 Dose: 5 mg Documented by: Guaifenesin (Guaifenesin 100 Mg/5 Ml Soln 10 Ml Ud Cup) 200 mg PO Q6H PRN PRN Reason: Cough Hydralazine HCl (Hydralazine 20 Mg/Ml Sdv) 10 mg IVPUSH Q4H PRN PRN Reason: Hypertension Promethazine HCl 12.5 mg/ (Sodium Chloride) 50.5 mls @ 100 mls/hr IV Q6H PRN PRN Reason: Nausea/Vomiting Ceftriaxone Sodium 2 gm/ (Sodium Chloride) 100 mls @ 200 mls/hr IV Q24H [facility] Last Admin: 07/21/21 18:17 Dose: 200 mls/hr Documented by: Doxycycline Hyclate 100 mg/ (Sodium Chloride) 100 mls @ 100 mls/hr IV Q12HR [facility] Last Admin: 07/21/21 21:03 Dose: 100 mls/hr Documented by: Remdesivir 100 mg/ Sodium (Chloride) 100 mls @ 100 mls/hr IV Q24H [facility] Stop: 07/23/21 17:59 Last Admin: 07/21/21 17:12 Dose: 100 mls/hr Documented by: Lisinopril (Lisinopril 20 Mg Tab) 20 mg PO DAILY [facility] Last Admin: 07/21/21 11:26 Dose: 20 mg Documented by: Magnesium Hydroxide (Magnesium Hydroxide 400 Mg/5 Ml Susp 30 Ml Cup) 30 ml PO DAILY PRN PRN Reason: Constipation Last Admin: 07/20/21 16:07 Dose: 30 ml Documented by: Melatonin (Melatonin 3 Mg Tab) 3 mg PO BEDTIME [facility] Last Admin: 07/21/21 21:07 Dose: 3 mg Documented by: Oxycodone HCl (Oxycodone 5 Mg Tab) 5 mg PO Q6H PRN PRN Reason: Pain (moderate 4-6) Pantoprazole Sodium (Pantoprazole 40 Mg Tab.Cr) 40 mg PO ACBREAKFAST [facility] Last Admin: 07/22/21 06:22 Dose: Not Given Documented by: Rosuvastatin Calcium (Rosuvastatin 10 Mg Tab) 20 mg PO DAILY [facility] Last Admin: 07/21/21 09:47 Dose: 20 mg Documented by: Zinc Sulfate (Zinc Sulfate 220 Mg Cap) 220 mg PO DAILY [facility] Last Admin: 07/21/21 09:46 Dose: 220 mg Documented by: Discontinued Medications Dexamethasone (Dexamethasone 10 Mg/Ml Sdv) 6 mg IVPUSH ONETIME ONE Stop: 07/19/21 16:04 Last Admin: 07/19/21 16:47 Dose: 6 mg Documented by: Enoxaparin Sodium (Enoxaparin 40 Mg/0.4 Ml Syringe) 60 mg SUBCUT BID [facility] Dextrose/Sodium Chloride (Dextrose 5%-Normal Saline) 1,000 mls @ 75 mls/hr IV ASDIRECTED [facility] Last Admin: 07/19/21 16:11 Dose: 75 mls/hr Documented by: Remdesivir 200 mg/ Sodium (Chloride) 250 mls @ 250 mls/hr IV ONETIME ONE Stop: 07/19/21 16:02 Last Admin: 07/19/21 16:49 Dose: 250 mls/hr Documented by: Metoprolol Succinate (Metoprolol Succinate 50 Mg Tab.Er) 200 mg PO DAILY [facility] Last Admin: 07/20/21 09:02 Dose: 200 mg Documented by: Metoprolol Succinate (Metoprolol Succinate 50 Mg Tab.Er) 50 mg PO DAILY [facility] Stop: 07/21/21 10:30 Last Admin: 07/21/21 11:27 Dose: 50 mg Documented by: Morphine Sulfate (Morphine 2 Mg/Ml Syringe) 2 mg IVPUSH Q4H PRN PRN Reason: Pain (severe 7-10) Stop: 07/20/21 17:02 Potassium Chloride (Potassium Chloride 20 Meq Tab.Er) 40 meq PO DAILY [facility] Potassium Chloride (Potassium Chloride 20 Meq Tab.Er) 40 meq PO ONETIME ONE Stop: 07/19/21 18:31 Last Admin: 07/19/21 19:16 Dose: 40 meq Documented by: Potassium Chloride (Potassium Chloride 20 Meq Tab.Er) 20 meq PO TID [facility] Stop: 07/20/21 15:01 Last Admin: 07/20/21 16:07 Dose: 20 meq Documented by: - Exam Quality Assessment: Supplemental Oxygen (3L), DVT Prophylaxis. No: Urine Catheter General: Alert, Oriented, Cooperative, No Acute Distress HEENT: Pupils Equal, Pupils Reactive, Mucous Membr. Moist/[place] Neck: Supple Lungs: Normal Respiratory Effort, Decreased Breath Sounds, Crackles Cardiovascular: Regular Rate, Regular Rhythm GI/Abdominal Exam: Normal Bowel Sounds, Soft, Non-Tender, No Distention (Male) Exam: Deferred Back Exam: Normal Inspection, Full Range of Motion Extremities: Normal Inspection, Normal Range of Motion, Non-Tender, No Pedal Edema, Normal Capillary Refill Peripheral Pulses: 2+: Radial (L), Radial (R), Dorsalis Pedis (L), Dorsalis Pedis (R) Skin: Warm, Dry, Intact Neurological: No New Focal Deficit Psy/Mental Status: Alert, Normal Affect, Normal Mood - Patient Data Lab Results Last 24 hrs: Laboratory Results - last 24 hr 07/22/21 07/22/21 Range/Units 04:52 04:52 WBC 5.71 (4.23-9.07) K/mm3 RBC 3.92 L (4.63-6.08) M/mm3 Hgb 12.3 L (13.7-17.5) gm/dl Hct 37.5 L (40.1-51.0) % MCV 95.7 H (79.0-92.2) fl MCH 31.4 (25.7-32.2) pg MCHC 32.8 (32.2-35.5) g/dl RDW Std Deviation 43.7 (35.1-43.9) fL Plt Count 239 (163-337) K/mm3 MPV 9.8 (9.4-12.3) fl Neut % (Auto) 74.0 H (34.0-67.9) % Lymph % (Auto) 11.6 L (21.8-53.1) % [place] % (Auto) 10.0 (5.3-12.2) % Eos % (Auto) 0 L (0.8-7.0) Baso % (Auto) 0.2 (0.1-1.2) % Neut # (Auto) 4.23 (1.78-5.38) K/mm3 Lymph # (Auto) 0.66 L (1.32-3.57) K/mm3 [place] # (Auto) 0.57 (0.30-0.82) K/mm3 Eos # (Auto) 0.00 L (0.04-0.54) K/mm3 Baso # (Auto) 0.01 (0.01-0.08) K/mm3 Sodium 144 (136-145) mEq/L Potassium 4.0 (3.5-5.1) mEq/L Chloride 109 H (98-107) mEq/L Carbon Dioxide 22 (21-32) mEq/L Anion Gap 17.0 H (5-15) BUN 21 H (7-18) mg/dL Creatinine 1.2 (0.7-1.3) mg/dL Est Cr Clr Drug Dosing 48.96 mL/min Estimated GFR (MDRD) 59 (>60) mL/min BUN/Creatinine Ratio 17.5 (14-18) Glucose 114 H (70-99) mg/dL Calcium 8.6 (8.5-10.1) mg/dL Total Bilirubin 0.9 (0.2-1.0) mg/dL AST 19 (15-37) U/L ALT 25 (16-63) U/L Alkaline Phosphatase 93 (46-116) U/L C-Reactive Protein 4.8 H* (<1.0) mg/dL Total Protein 6.1 L (6.4-8.2) g/dl Albumin 2.3 L (3.4-5.0) g/dl Globulin 3.8 gm/dL Albumin/Globulin Ratio 0.6 L (1-2) Result Diagrams: 07/22/21 04:52 07/22/21 04:52 Mukesh Results Last 24 hrs: Microbiology 07/19/21 21:27 Respiratory Culture - Preliminary Sputum - Expectorated Staphylococcus Aureus Gram Stain - Final 07/19/21 17:22 Blood Culture - Preliminary Blood - Venous - Lab Draw 07/19/21 17:30 Blood Culture - Preliminary Blood - Venous Sepsis Event Note - Evaluation Sepsis Screening Result: No Definite Risk - Focused Exam Vital Signs: Vital Signs Temp Pulse Resp BP Pulse Ox Pulse Ox 07/22/21 05:19 93 L 07/22/21 04:49 97.7 F 72 20 142/69 H 90 L 07/21/21 21:07 97.9 F 95 20 147/65 H 96 - Problem List & Annotations (1) Acute respiratory failure with hypoxia SNOMED Code(s): 32025476, 960513152 Code(s): J96.01 - ACUTE RESPIRATORY FAILURE WITH HYPOXIA Status: Acute Priority: High Current Visit: Yes (2) Pneumonia due to COVID-19 virus SNOMED Code(s): 148567090438664139 Code(s): U07.1 - COVID-19; J12.82 - PNEUMONIA DUE TO CORONAVIRUS DISEASE 2018 Status: Acute Priority: High Current Visit: Yes (3) CAD (coronary artery disease) SNOMED Code(s): 60395134 Code(s): I25.10 - ATHSCL HEART DISEASE OF [place] CORONARY ARTERY W/O ANG PCTRS Status: Chronic Priority: Medium Current Visit: No Qualifiers: Coronary Disease-Associated Artery/Lesion type: [place] artery [place] vs. transplanted heart: [place] heart Associated angina: unspecified whether angina present Qualified Code(s): I25.10 - Atherosclerotic heart disease of [place] coronary artery without angina pectoris (4) History of coronary artery stent placement SNOMED Code(s): 995469230, 450233362 Code(s): Z95.5 - PRESENCE OF CORONARY ANGIOPLASTY IMPLANT AND GRAFT Status: Chronic Priority: Low Current Visit: No (5) Elevated d-dimer SNOMED Code(s): 147873145 Code(s): R79.89 - OTHER SPECIFIED ABNORMAL FINDINGS OF BLOOD CHEMISTRY Status: Acute Priority: High Current Visit: Yes (6) Microscopic hematuria SNOMED Code(s): 253730509 Code(s): R31.29 - OTHER MICROSCOPIC HEMATURIA Status: Acute Priority: Medium Current Visit: Yes (7) Hypokalemia SNOMED Code(s): 55212576 Code(s): E87.6 - HYPOKALEMIA Status: Resolved Priority: High Current Visit: Yes (8) Hyperbilirubinemia SNOMED Code(s): 30280526 Code(s): E80.6 - OTHER DISORDERS OF BILIRUBIN METABOLISM Status: Resolved Priority: Medium Current Visit: Yes (9) HTN (hypertension) SNOMED Code(s): 49437481 Code(s): I10 - ESSENTIAL (PRIMARY) HYPERTENSION Status: Chronic Priority: Medium Current Visit: No Qualifiers: Hypertension type: unspecified Qualified Code(s): I10 - Essential (primary) hypertension - Problem List Review Problem List Initiated/Reviewed/Updated: Yes - Plan Plan:: Patient is a 75-year-old male with a history of CAD and hypertension who presented to the ER due to worsening shortness of breath and oxygen desaturation. Symptoms started on July 06, 2021. He had a positive COVID- 19 test on July 11 Assessment and plan: Acute hypoxic respiratory failure Pulse ox Oxygen therapy, high flow/BiPAP as needed to keep oxygen saturation greater than 92% Covid 19 pneumonia X-ray showed bilateral pneumonia (x-ray done in PCP office) Blood culture no growth so far Sputum culture -staph aureus and H. influenzae Ceftriaxone and doxycycline 5-day course of remdesivir 10-day course of dexamethasone Patient is on aspirin and Plavix for his CAD, s/p stent. His D-dimer mildly elevated to 1.40. Consider patient's age and condition, I would like to continue aspirin 325mg daily and Plavix 75mg daily. But I will will start him on Lovenox 40 mg twice daily. Inhalers Repeat CBC, CMP, CRP in morning CAD, s/p 1 stent placement Continue aspirin and plavix Continue rosuvastatin 20mg daily Elevation of D-dimer, 1.40-->0.89, Improved Most likely due to Covid 19 infection. I would not like to do CTA for him for the mild elevation of D-dimer in the setting of positive Covid 19. Continue aspirin, Plavix and statin. Lovenox 40 mg twice daily Microscopic hematuria I would like to continue aspirin, Plavix, and Lovenox 40 mg twice daily Hb 12.3 - improving Repeat a CBC in morning PCP follow-up Hypokalemia, Resolved Supplemented Monitor Hyperbilirubinemia, 2.9-->0.9; Resolved AST, ALS and Alk phos WNL Etiology unknown Monitor Hypertension decreased amlodipine to 5mg daily from 10mg daily and metoprolol to 50mg daily from 100mg daily. Continue lisinopril 20mg daily. Hydralazine as needed Adjust meds based on BP DVT prophylaxis: Lovenox Code status: full RN and I met pt in his room. I explained CPR and intubation to him who agreed to have both cpr and intubation. Disposition: Likely discharge in 1-2 days pending improvement and oxygen wean. Length of stay greater than 96 hours pending treatment for COVID-19 pneumonia and oxygen wean. <Brijesh Nath - Last Filed: 07/23/21 16:38> - Patient Data Vitals - Most Recent: Last Vital Signs Temp 36.5 C 07/23/21 08:29 Pulse 74 07/23/21 08:29 Resp 22 H 07/23/21 08:29 BP 130/59 L 07/23/21 08:29 Pulse Ox 91 L 07/23/21 09:18 I&O - Last 24 Hours: Intake & Output 07/23/21 07/23/21 07/23/21 06:59 14:59 22:59 Intake Total 500 780 Output Total 750 400 Balance -250 380 Lab Results Last 24 Hours: Laboratory Results - last 24 hr 07/23/21 07/23/21 Range/Units 06:26 06:26 WBC 5.90 (4.23-9.07) K/mm3 RBC 3.95 L (4.63-6.08) M/mm3 Hgb 12.4 L (13.7-17.5) gm/dl Hct 37.7 L (40.1-51.0) % MCV 95.4 H (79.0-92.2) fl MCH 31.4 (25.7-32.2) pg MCHC 32.9 (32.2-35.5) g/dl RDW Std Deviation 43.2 (35.1-43.9) fL Plt Count 226 (163-337) K/mm3 MPV 9.6 (9.4-12.3) fl Neut % (Auto) 70.3 H (34.0-67.9) % Lymph % (Auto) 15.6 L (21.8-53.1) % [place] % (Auto) 9.8 (5.3-12.2) % Eos % (Auto) 0.2 L (0.8-7.0) Baso % (Auto) 0.2 (0.1-1.2) % Neut # (Auto) 4.15 (1.78-5.38) K/mm3 Lymph # (Auto) 0.92 L (1.32-3.57) K/mm3 [place] # (Auto) 0.58 (0.30-0.82) K/mm3 Eos # (Auto) 0.01 L (0.04-0.54) K/mm3 Baso # (Auto) 0.01 (0.01-0.08) K/mm3 Sodium 140 (136-145) mEq/L Potassium 4.6 (3.5-5.1) mEq/L Chloride 108 H (98-107) mEq/L Carbon Dioxide 24 (21-32) mEq/L Anion Gap 12.6 (5-15) BUN 19 H (7-18) mg/dL Creatinine 1.0 (0.7-1.3) mg/dL Est Cr Clr Drug Dosing 58.76 mL/min Estimated GFR (MDRD) > 60 (>60) mL/min BUN/Creatinine Ratio 19.0 H (14-18) Glucose 100 H (70-99) mg/dL Calcium 8.5 (8.5-10.1) mg/dL Total Bilirubin 1.0 (0.2-1.0) mg/dL AST 26 (15-37) U/L ALT 33 (16-63) U/L Alkaline Phosphatase 87 (46-116) U/L C-Reactive Protein 2.9 H* (<1.0) mg/dL Total Protein 5.8 L (6.4-8.2) g/dl Albumin 2.2 L (3.4-5.0) g/dl Globulin 3.6 gm/dL Albumin/Globulin Ratio 0.6 L (1-2) Mukesh Results Last 24 Hours: Microbiology 07/19/21 21:27 Respiratory Culture - Preliminary Sputum - Expectorated Staphylococcus Aureus Haemophilus Influenzae Gram Stain - Final Med Orders - Current: Current Medications Acetaminophen (Acetaminophen 325 Mg Tab) 650 mg PO Q6H PRN PRN Reason: Pain (Mild 1-3)/fever Albuterol/Ipratropium (Albuterol/Ipratropium 3.0-0.5 Mg/3 Ml Neb Soln) 3 ml NEB Q4H PRN PRN Reason: Shortness Of Breath/wheezing Last Admin: 07/22/21 08:35 Dose: 3 ml Documented by: Amlodipine Besylate (Amlodipine 5 Mg Tab) 5 mg PO DAILY [facility] Last Admin: 07/23/21 12:05 Dose: Not Given Documented by: Aspirin (Aspirin 325 Mg Tab.Ec) 325 mg PO DAILY [facility] Last Admin: 07/23/21 12:05 Dose: Not Given Documented by: Benzonatate (Benzonatate 100 Mg Cap) 100 mg PO Q8H PRN PRN Reason: Cough Last Admin: 07/22/21 11:39 Dose: 100 mg Documented by: Cholecalciferol (Cholecalciferol (Vitamin D3) 25 Mcg Tab) 25 mcg PO DAILY [facility] Last Admin: 07/23/21 12:36 Dose: Not Given Documented by: Clopidogrel Bisulfate (Clopidogrel 75 Mg Tab) 75 mg PO DAILY [facility] Last Admin: 07/23/21 12:05 Dose: Not Given Documented by: Dexamethasone (Dexamethasone 4 Mg Tab) 6 mg PO DAILY [facility] Last Admin: 07/23/21 12:04 Dose: Not Given Documented by: Enoxaparin Sodium (Enoxaparin 40 Mg/0.4 Ml Syringe) 40 mg SUBCUT BID [facility] Last Admin: 07/23/21 12:05 Dose: Not Given Documented by: Finasteride (Finasteride 5 Mg Tab) 5 mg PO DAILY [facility] Last Admin: 07/23/21 12:13 Dose: Not Given Documented by: Guaifenesin (Guaifenesin 100 Mg/5 Ml Soln 10 Ml Ud Cup) 200 mg PO Q6H PRN PRN Reason: Cough Hydralazine HCl (Hydralazine 20 Mg/Ml Sdv) 10 mg IVPUSH Q4H PRN PRN Reason: Hypertension Promethazine HCl 12.5 mg/ (Sodium Chloride) 50.5 mls @ 100 mls/hr IV Q6H PRN PRN Reason: Nausea/Vomiting Doxycycline Hyclate 100 mg/ (Sodium Chloride) 100 mls @ 100 mls/hr IV Q12HR [facility] Last Admin: 07/23/21 12:36 Dose: Not Given Documented by: Lisinopril (Lisinopril 20 Mg Tab) 20 mg PO DAILY [facility] Last Admin: 07/23/21 12:05 Dose: Not Given Documented by: Magnesium Hydroxide (Magnesium Hydroxide 400 Mg/5 Ml Susp 30 Ml Cup) 30 ml PO DAILY PRN PRN Reason: Constipation Last Admin: 07/20/21 16:07 Dose: 30 ml Documented by: Melatonin (Melatonin 3 Mg Tab) 3 mg PO BEDTIME [facility] Last Admin: 07/22/21 21:10 Dose: 3 mg Documented by: Metoprolol Succinate (Metoprolol Succinate 50 Mg Tab.Er) 50 mg PO DAILY [facility] Last Admin: 07/23/21 12:14 Dose: Not Given Documented by: Oxycodone HCl (Oxycodone 5 Mg Tab) 5 mg PO Q6H PRN PRN Reason: Pain (moderate 4-6) Pantoprazole Sodium (Pantoprazole 40 Mg Tab.Cr) 40 mg PO ACBREAKFAST [facility] Last Admin: 07/23/21 05:10 Dose: 40 mg Documented by: Rosuvastatin Calcium (Rosuvastatin 10 Mg Tab) 20 mg PO DAILY [facility] Last Admin: 07/23/21 12:04 Dose: Not Given Documented by: Zinc Sulfate (Zinc Sulfate 220 Mg Cap) 220 mg PO DAILY [facility] Last Admin: 07/23/21 12:36 Dose: Not Given Documented by: Discontinued Medications Dexamethasone (Dexamethasone 10 Mg/Ml Sdv) 6 mg IVPUSH ONETIME ONE Stop: 07/19/21 16:04 Last Admin: 07/19/21 16:47 Dose: 6 mg Documented by: Enoxaparin Sodium (Enoxaparin 40 Mg/0.4 Ml Syringe) 60 mg SUBCUT BID [facility] Dextrose/Sodium Chloride (Dextrose 5%-Normal Saline) 1,000 mls @ 75 mls/hr IV ASDIRECTED [facility] Last Admin: 07/19/21 16:11 Dose: 75 mls/hr Documented by: Remdesivir 200 mg/ Sodium (Chloride) 250 mls @ 250 mls/hr IV ONETIME ONE Stop: 07/19/21 16:02 Last Admin: 07/19/21 16:49 Dose: 250 mls/hr Documented by: Ceftriaxone Sodium 2 gm/ (Sodium Chloride) 100 mls @ 200 mls/hr IV Q24H [facility] Last Admin: 07/22/21 18:22 Dose: 200 mls/hr Documented by: Remdesivir 100 mg/ Sodium (Chloride) 100 mls @ 100 mls/hr IV Q24H [facility] Stop: 07/23/21 17:59 Last Admin: 07/22/21 17:08 Dose: 100 mls/hr Documented by: Ceftriaxone Sodium 2 gm/ (Sodium Chloride) 100 mls @ 200 mls/hr IV ONETIME ONE Stop: 07/23/21 11:29 Last Admin: 07/23/21 11:31 Dose: 200 mls/hr Documented by: Remdesivir 100 mg/ Sodium (Chloride) 100 mls @ 100 mls/hr IV ONETIME ONE Stop: 07/23/21 12:59 Last Admin: 07/23/21 12:14 Dose: 100 mls/hr Documented by: Metoprolol Succinate (Metoprolol Succinate 50 Mg Tab.Er) 200 mg PO DAILY [facility] Last Admin: 07/22/21 21:35 Dose: Not Given Documented by: Metoprolol Succinate (Metoprolol Succinate 50 Mg Tab.Er) 50 mg PO DAILY ONE Stop: 07/21/21 10:30 Last Admin: 07/21/21 11:27 Dose: 50 mg Documented by: Morphine Sulfate (Morphine 2 Mg/Ml Syringe) 2 mg IVPUSH Q4H PRN PRN Reason: Pain (severe 7-10) Stop: 07/20/21 17:02 Potassium Chloride (Potassium Chloride 20 Meq Tab.Er) 40 meq PO DAILY [facility] Potassium Chloride (Potassium Chloride 20 Meq Tab.Er) 40 meq PO ONETIME ONE Stop: 07/19/21 18:31 Last Admin: 07/19/21 19:16 Dose: 40 meq Documented by: Potassium Chloride (Potassium Chloride 20 Meq Tab.Er) 20 meq PO TID [facility] Stop: 07/20/21 15:01 Last Admin: 07/20/21 16:07 Dose: 20 meq Documented by: - Patient Data Lab Results Last 24 hrs: Laboratory Results - last 24 hr 07/23/21 07/23/21 Range/Units 06:26 06:26 WBC 5.90 (4.23-9.07) K/mm3 RBC 3.95 L (4.63-6.08) M/mm3 Hgb 12.4 L (13.7-17.5) gm/dl Hct 37.7 L (40.1-51.0) % MCV 95.4 H (79.0-92.2) fl MCH 31.4 (25.7-32.2) pg MCHC 32.9 (32.2-35.5) g/dl RDW Std Deviation 43.2 (35.1-43.9) fL Plt Count 226 (163-337) K/mm3 MPV 9.6 (9.4-12.3) fl Neut % (Auto) 70.3 H (34.0-67.9) % Lymph % (Auto) 15.6 L (21.8-53.1) % [place] % (Auto) 9.8 (5.3-12.2) % Eos % (Auto) 0.2 L (0.8-7.0) Baso % (Auto) 0.2 (0.1-1.2) % Neut # (Auto) 4.15 (1.78-5.38) K/mm3 Lymph # (Auto) 0.92 L (1.32-3.57) K/mm3 [place] # (Auto) 0.58 (0.30-0.82) K/mm3 Eos # (Auto) 0.01 L (0.04-0.54) K/mm3 Baso # (Auto) 0.01 (0.01-0.08) K/mm3 Sodium 140 (136-145) mEq/L Potassium 4.6 (3.5-5.1) mEq/L Chloride 108 H (98-107) mEq/L Carbon Dioxide 24 (21-32) mEq/L Anion Gap 12.6 (5-15) BUN 19 H (7-18) mg/dL Creatinine 1.0 (0.7-1.3) mg/dL Est Cr Clr Drug Dosing 58.76 mL/min Estimated GFR (MDRD) > 60 (>60) mL/min BUN/Creatinine Ratio 19.0 H (14-18) Glucose 100 H (70-99) mg/dL Calcium 8.5 (8.5-10.1) mg/dL Total Bilirubin 1.0 (0.2-1.0) mg/dL AST 26 (15-37) U/L ALT 33 (16-63) U/L Alkaline Phosphatase 87 (46-116) U/L C-Reactive Protein 2.9 H* (<1.0) mg/dL Total Protein 5.8 L (6.4-8.2) g/dl Albumin 2.2 L (3.4-5.0) g/dl Globulin 3.6 gm/dL Albumin/Globulin Ratio 0.6 L (1-2) Result Diagrams: 07/23/21 06:26 07/23/21 06:26 Mukesh Results Last 24 hrs: Microbiology 07/19/21 21:27 Respiratory Culture - Preliminary Sputum - Expectorated Staphylococcus Aureus Haemophilus Influenzae Gram Stain - Final Sepsis Event Note - Focused Exam Vital Signs: Vital Signs Temp Pulse Resp BP Pulse Ox Pulse Ox 07/23/21 09:18 91 L 07/23/21 08:29 36.5 C 74 22 H 130/59 L 91 L 07/23/21 05:06 36.8 C 70 15 128/71 90 L - My Orders Last 24 Hours: My Active Orders 07/23/21 08:46 Ready for Discharge [RC] PER UNIT ROUTINE - Free Text/Narrative Note: I have seen and examined the patient independently of Jean Carlos Carter PA-C. I have discussed the case with him and reviewed and agree with the plan of care as outlined by him. Please see orders.
[2021-07-22] MEDS: Albuterol/Ipratropium 3.0-0.5 MG/3 ML Neb Soln NEB PRN (08:35)
[2021-07-22] MEDS: Doxycycline 100 MG in Sodium Chloride 0.9% 100 ML IV SCH ×2 (09:32→21:10)
[2021-07-22] MEDS: amLODIPine 5 MG Tab PO SCH (09:32)
[2021-07-22] MEDS: Aspirin 325 MG Tab.EC PO SCH (09:32)
[2021-07-22] MEDS: Finasteride 5 MG Tab PO SCH (09:32)
[2021-07-22] MEDS: Rosuvastatin 10 MG Tab PO SCH (09:33)
[2021-07-22] MEDS: Zinc Sulfate 220 MG Cap PO SCH (09:33)
[2021-07-22] MEDS: Cholecalciferol (Vitamin D3) 25 MCG Tab PO SCH (09:33)
[2021-07-22] MEDS: Lisinopril 20 MG Tab PO SCH (09:33)
[2021-07-22] MEDS: Dexamethasone 4 MG Tab PO SCH (09:33)
[2021-07-22] MEDS: Clopidogrel 75 MG Tab PO SCH (09:33)
[2021-07-22] MEDS: Enoxaparin 40 MG/0.4 ML Syringe SUBCUT SCH ×2 (09:34→21:10)
[2021-07-22] MEDS: Metoprolol Succinate 50 MG Tab.ER PO SCH ×2 (12:19→21:35)
[2021-07-22] MEDS: REMDESIVIR 100 MG in Sodium Chloride 0.9% 100 ML IV SCH (17:08)
[2021-07-22] MEDS: cefTRIAXone 2 GM in Sodium Chloride 0.9% 100 ML IV SCH (18:22)
[2021-07-22] MEDS: Melatonin 3 MG Tab PO SCH (21:10)
[2021-07-23] MEDS: Pantoprazole 40 MG Tab.CR PO SCH (05:10)
--- NOTE | 2021-07-23 09:24 | PCM.DCSUM1 ---
Discharge Summary - Hospital Course HPI Initial Comments: The patient had been admitted to acute hospitalization secondary to acute respiratory failure with COVID-19 pneumonia. Diagnosis: Stroke: No - Discharge Data Discharge Date: 07/23/21 Discharge Disposition: Home, Self-Care 01 Condition: Good - Referral to Home Health Primary Care Physician: PCP None - Patient Summary/Data Consults: Consultations 07/19/21 16:58 OT Evaluation and Treatment [CONS] Routine PT Evaluation and Treatment [CONS] Routine Hospital Course: The patient is a 75-year-old gentleman who had presented to the emergency department due to worsening shortness of breath and oxygen desaturation. The patient had been tested positive for COVID-19 on July 11, 2021. The patient had been admitted secondary to acute respiratory failure associated with COVID-19 pneumonia. The patient also had blood cultures that were taken. Which were negative. The patient had been started on dexamethasone and remdesivir. He had been given the complete remdesivir and the patient also had been tolerating the steroids well. The patient did have elevations of his D- dimer at 1.4 and initially had been placed on Lovenox 40 mg twice daily in addition to his aspirin and Plavix. The patient had tolerated this well. The patient's initial pulse oximetry was at 81% while on room air. The patient's oxygen had been titrated to keep his oxygen saturations around 92%. The patient had been back at his baseline of 2 L via nasal cannula for oxygen support at home. The patient's white blood cell count was normal. His platelet counts were normal. The patient had been sent home on dexamethasone 6 mg p.o. daily for the next 4 days. He also had been given a prescription for a azithromycin 500 mg p.o. daily. The patient had continued to improve to the point that he felt like he could safely go home. The patient also has been tolerating his diet and he has been further recommended to continue with his usual diet as tolerated. The patient was also recommended to continue with his activity as tolerated. The patient has been hemodynamically stable and he feels like he can go home. The patient has been discharged from acute hospitalizations with the recommendations listed above. The patient is also to follow-up with his primary care physician. - Patient Instructions Diet: Usual Diet as Tolerated Activity: As Tolerated - Discharge Plan *PRESCRIPTION DRUG MONITORING PROGRAM REVIEWED*: Not Applicable *COPY OF PRESCRIPTION DRUG MONITORING REPORT IN PATIENT LILIANA: Not Applicable Prescriptions/Med Rec: Azithromycin 500 mg PO DAILY #5 tablet dexAMETHasone [Dexamethasone] 6 mg PO DAILY #4 tablet Home Medications: Home Meds Aspirin [Ecotrin EC] 325 mg PO DAILY 02/15/16 [History] Clopidogrel [Plavix] 75 mg PO DAILY 02/15/16 [History] Metoprolol Succinate 100 mg PO DAILY 02/15/16 [History] Ramipril 10 mg PO DAILY 02/15/16 [History] atorvaSTATin Calcium [Atorvastatin Calcium] 80 mg PO DAILY 02/15/16 [History] Finasteride 5 mg PO DAILY 08/24/19 [History] Omeprazole Magnesium [Prilosec] 20 mg PO ASDIRECTED 08/24/19 [History] amLODIPine [Norvasc] 10 mg PO DAILY 08/24/19 [History] Benzonatate 1 - 2 tab PO Q8HR PRN 07/19/21 [History] Azithromycin 500 mg PO DAILY #5 tablet 07/23/21 [Rx] dexAMETHasone [Dexamethasone] 6 mg PO DAILY #4 tablet 07/23/21 [Rx] Oxygen Therapy Mode: Nasal Cannula Oxygen Flow Rate (L/min): 2 Patient Handouts: COVID-19 Frequently Asked Questions, COVID-19, 10 Things You Can Do to Manage Your COVID-19 Symptoms at Home - [facility] (05/13/2021), Home Oxygen Use, Adult Referrals: Aston Hussein, [employer] [Nurse Practitioner] - 07/28/21 (Please keep your previously scheduled appointment with Aston. ) - Discharge Summary/Plan Comment DC Time >30 min.: Yes Total # of Minutes for Discharge Time: 50 - General Info Date of Service: 07/23/21 Admission Dx/Problem (Free Text: Admission Diagnosis/Problem Admission Diagnosis/Problem Pneumonia Subjective Update: Patient is doing well today. He has no other complaints today. The patient feels like he can safely go home today. Functional Status: Reports: Pain Controlled, Tolerating Diet - Review of Systems General: Reports: No Symptoms HEENT: Reports: No Symptoms Pulmonary: Reports: No Symptoms Cardiovascular: Reports: No Symptoms Gastrointestinal: Reports: No Symptoms Genitourinary: Reports: No Symptoms Musculoskeletal: Reports: No Symptoms Skin: Reports: No Symptoms Neurological: Reports: No Symptoms Psychiatric: Reports: No Symptoms - Patient Data Vitals - Most Recent: Last Vital Signs Temp 36.8 C 07/23/21 05:06 Pulse 70 07/23/21 05:06 Resp 15 07/23/21 05:06 BP 128/71 07/23/21 05:06 Pulse Ox 90 L 07/23/21 05:06 Weight - Most Recent: 83.96 kg I&O - Last 24 hours: Intake & Output 07/22/21 07/23/21 07/23/21 22:59 06:59 14:59 Intake Total 900 500 Output Total 400 750 Balance 500 -250 Lab Results - Last 24 hrs: Laboratory Results - last 24 hr 07/22/21 07/23/21 07/23/21 Range/Units 11:08 06:26 06:26 WBC 5.90 (4.23-9.07) K/mm3 RBC 3.95 L (4.63-6.08) M/mm3 Hgb 12.4 L (13.7-17.5) gm/dl Hct 37.7 L (40.1-51.0) % MCV 95.4 H (79.0-92.2) fl MCH 31.4 (25.7-32.2) pg MCHC 32.9 (32.2-35.5) g/dl RDW Std Deviation 43.2 (35.1-43.9) fL Plt Count 226 (163-337) K/mm3 MPV 9.6 (9.4-12.3) fl Neut % (Auto) 70.3 H (34.0-67.9) % Lymph % (Auto) 15.6 L (21.8-53.1) % [place]duffie % (Auto) 9.8 (5.3-12.2) % Eos % (Auto) 0.2 L (0.8-7.0) Baso % (Auto) 0.2 (0.1-1.2) % Neut # (Auto) 4.15 (1.78-5.38) K/mm3 Lymph # (Auto) 0.92 L (1.32-3.57) K/mm3 [place] # (Auto) 0.58 (0.30-0.82) K/mm3 Eos # (Auto) 0.01 L (0.04-0.54) K/mm3 Baso # (Auto) 0.01 (0.01-0.08) K/mm3 D-Dimer, Quantitative 0.89 H (0.19-0.50) mg/L Sodium 140 (136-145) mEq/L Potassium 4.6 (3.5-5.1) mEq/L Chloride 108 H (98-107) mEq/L Carbon Dioxide 24 (21-32) mEq/L Anion Gap 12.6 (5-15) BUN 19 H (7-18) mg/dL Creatinine 1.0 (0.7-1.3) mg/dL Est Cr Clr Drug Dosing 58.76 mL/min Estimated GFR (MDRD) > 60 (>60) mL/min BUN/Creatinine Ratio 19.0 H (14-18) Glucose 100 H (70-99) mg/dL Calcium 8.5 (8.5-10.1) mg/dL Total Bilirubin 1.0 (0.2-1.0) mg/dL AST 26 (15-37) U/L ALT 33 (16-63) U/L Alkaline Phosphatase 87 (46-116) U/L C-Reactive Protein 2.9 H* (<1.0) mg/dL Total Protein 5.8 L (6.4-8.2) g/dl Albumin 2.2 L (3.4-5.0) g/dl Globulin 3.6 gm/dL Albumin/Globulin Ratio 0.6 L (1-2) BRADY Results - Last 24 hrs: Microbiology 07/19/21 21:27 Respiratory Culture - Preliminary Sputum - Expectorated Staphylococcus Aureus Haemophilus Influenzae Gram Stain - Final Med Orders - Current: Current Medications Acetaminophen (Acetaminophen 325 Mg Tab) 650 mg PO Q6H PRN PRN Reason: Pain (Mild 1-3)/fever Albuterol/Ipratropium (Albuterol/Ipratropium 3.0-0.5 Mg/3 Ml Neb Soln) 3 ml NEB Q4H PRN PRN Reason: Shortness Of Breath/wheezing Last Admin: 07/22/21 08:35 Dose: 3 ml Documented by: Amlodipine Besylate (Amlodipine 5 Mg Tab) 5 mg PO DAILY [facility] Last Admin: 07/22/21 09:32 Dose: 5 mg Documented by: Aspirin (Aspirin 325 Mg Tab.Ec) 325 mg PO DAILY [facility] Last Admin: 07/22/21 09:32 Dose: 325 mg Documented by: Benzonatate (Benzonatate 100 Mg Cap) 100 mg PO Q8H PRN PRN Reason: Cough Last Admin: 07/22/21 11:39 Dose: 100 mg Documented by: Cholecalciferol (Cholecalciferol (Vitamin D3) 25 Mcg Tab) 25 mcg PO DAILY [facility] Last Admin: 07/22/21 09:33 Dose: 25 mcg Documented by: Clopidogrel Bisulfate (Clopidogrel 75 Mg Tab) 75 mg PO DAILY [facility] Last Admin: 07/22/21 09:33 Dose: 75 mg Documented by: Dexamethasone (Dexamethasone 4 Mg Tab) 6 mg PO DAILY [facility] Last Admin: 07/22/21 09:33 Dose: 6 mg Documented by: Enoxaparin Sodium (Enoxaparin 40 Mg/0.4 Ml Syringe) 40 mg SUBCUT BID [facility] Last Admin: 07/22/21 21:10 Dose: 40 mg Documented by: Finasteride (Finasteride 5 Mg Tab) 5 mg PO DAILY [facility] Last Admin: 07/22/21 09:32 Dose: 5 mg Documented by: Guaifenesin (Guaifenesin 100 Mg/5 Ml Soln 10 Ml Ud Cup) 200 mg PO Q6H PRN PRN Reason: Cough Hydralazine HCl (Hydralazine 20 Mg/Ml Sdv) 10 mg IVPUSH Q4H PRN PRN Reason: Hypertension Promethazine HCl 12.5 mg/ (Sodium Chloride) 50.5 mls @ 100 mls/hr IV Q6H PRN PRN Reason: Nausea/Vomiting Ceftriaxone Sodium 2 gm/ (Sodium Chloride) 100 mls @ 200 mls/hr IV Q24H [facility] Last Admin: 07/22/21 18:22 Dose: 200 mls/hr Documented by: Doxycycline Hyclate 100 mg/ (Sodium Chloride) 100 mls @ 100 mls/hr IV Q12HR [facility] Last Admin: 07/22/21 21:10 Dose: 100 mls/hr Documented by: Remdesivir 100 mg/ Sodium (Chloride) 100 mls @ 100 mls/hr IV Q24H [facility] Stop: 07/23/21 17:59 Last Admin: 07/22/21 17:08 Dose: 100 mls/hr Documented by: Lisinopril (Lisinopril 20 Mg Tab) 20 mg PO DAILY [facility] Last Admin: 07/22/21 09:33 Dose: 20 mg Documented by: Magnesium Hydroxide (Magnesium Hydroxide 400 Mg/5 Ml Susp 30 Ml Cup) 30 ml PO DAILY PRN PRN Reason: Constipation Last Admin: 07/20/21 16:07 Dose: 30 ml Documented by: Melatonin (Melatonin 3 Mg Tab) 3 mg PO BEDTIME [facility] Last Admin: 07/22/21 21:10 Dose: 3 mg Documented by: Metoprolol Succinate (Metoprolol Succinate 50 Mg Tab.Er) 50 mg PO DAILY [facility] Last Admin: 07/22/21 12:19 Dose: 50 mg Documented by: Oxycodone HCl (Oxycodone 5 Mg Tab) 5 mg PO Q6H PRN PRN Reason: Pain (moderate 4-6) Pantoprazole Sodium (Pantoprazole 40 Mg Tab.Cr) 40 mg PO ACBREAKFAST [facility] Last Admin: 07/23/21 05:10 Dose: 40 mg Documented by: Rosuvastatin Calcium (Rosuvastatin 10 Mg Tab) 20 mg PO DAILY [facility] Last Admin: 07/22/21 09:33 Dose: 20 mg Documented by: Zinc Sulfate (Zinc Sulfate 220 Mg Cap) 220 mg PO DAILY [facility] Last Admin: 07/22/21 09:33 Dose: 220 mg Documented by: Discontinued Medications Dexamethasone (Dexamethasone 10 Mg/Ml Sdv) 6 mg IVPUSH ONETIME ONE Stop: 07/19/21 16:04 Last Admin: 07/19/21 16:47 Dose: 6 mg Documented by: Enoxaparin Sodium (Enoxaparin 40 Mg/0.4 Ml Syringe) 60 mg SUBCUT BID [facility] Dextrose/Sodium Chloride (Dextrose 5%-Normal Saline) 1,000 mls @ 75 mls/hr IV ASDIRECTED [facility] Last Admin: 07/19/21 16:11 Dose: 75 mls/hr Documented by: Remdesivir 200 mg/ Sodium (Chloride) 250 mls @ 250 mls/hr IV ONETIME ONE Stop: 07/19/21 16:02 Last Admin: 07/19/21 16:49 Dose: 250 mls/hr Documented by: Metoprolol Succinate (Metoprolol Succinate 50 Mg Tab.Er) 200 mg PO DAILY [facility] Last Admin: 07/22/21 21:35 Dose: Not Given Documented by: Metoprolol Succinate (Metoprolol Succinate 50 Mg Tab.Er) 50 mg PO DAILY ONE Stop: 07/21/21 10:30 Last Admin: 07/21/21 11:27 Dose: 50 mg Documented by: Morphine Sulfate (Morphine 2 Mg/Ml Syringe) 2 mg IVPUSH Q4H PRN PRN Reason: Pain (severe 7-10) Stop: 07/20/21 17:02 Potassium Chloride (Potassium Chloride 20 Meq Tab.Er) 40 meq PO DAILY [facility] Potassium Chloride (Potassium Chloride 20 Meq Tab.Er) 40 meq PO ONETIME ONE Stop: 07/19/21 18:31 Last Admin: 07/19/21 19:16 Dose: 40 meq Documented by: Potassium Chloride (Potassium Chloride 20 Meq Tab.Er) 20 meq PO TID [place] Stop: 07/20/21 15:01 Last Admin: 07/20/21 16:07 Dose: 20 meq Documented by: - Exam Quality Assessment: Reports: Supplemental Oxygen, DVT Prophylaxis General: Reports: Alert, Oriented, Cooperative, No Acute Distress HEENT: Reports: Pupils Equal, Pupils Reactive, EOMI, Mucous Membr. Moist/[employer] Cross Neck: Reports: Supple, Trachea Midline Lungs: Reports: Clear to Auscultation, Normal Respiratory Effort Cardiovascular: Reports: Regular Rate, Regular Rhythm GI/Abdominal Exam: Normal Bowel Sounds, Soft, Non-Tender, No Distention (Male) Exam: Deferred Rectal (Males) Exam: Deferred Back Exam: Reports: Normal Inspection, Full Range of Motion Extremities: Normal Inspection, No Pedal Edema Skin: Reports: Warm, Dry, Intact Neurological: Reports: No New Focal Deficit, Normal Gait, Normal Speech Psy/Mental Status: Reports: Alert, Normal Affect, Normal Mood
[2021-07-23] MEDS ORDERED: cefTRIAXone 2 GM in Sodium Chloride 0.9% 100 ML IV ONE (11:00)
[2021-07-23 11:26] VITALS: BP 130/59; PULSE 74
[2021-07-23] MEDS ORDERED: REMDESIVIR 100 MG in Sodium Chloride 0.9% 100 ML IV ONE (12:00)
[2021-07-23] MEDS: Rosuvastatin 10 MG Tab PO SCH (12:04)
[2021-07-23] MEDS: Dexamethasone 4 MG Tab PO SCH (12:04)
[2021-07-23] MEDS: Aspirin 325 MG Tab.EC PO SCH (12:05)
[2021-07-23] MEDS: amLODIPine 5 MG Tab PO SCH (12:05)
[2021-07-23] MEDS: Lisinopril 20 MG Tab PO SCH (12:05)
[2021-07-23] MEDS: Enoxaparin 40 MG/0.4 ML Syringe SUBCUT SCH (12:05)
[2021-07-23] MEDS: Clopidogrel 75 MG Tab PO SCH (12:05)
[2021-07-23] MEDS: Finasteride 5 MG Tab PO SCH (12:13)
[2021-07-23] MEDS: Metoprolol Succinate 50 MG Tab.ER PO SCH (12:14)
[2021-07-23] MEDS: Zinc Sulfate 220 MG Cap PO SCH (12:36)
[2021-07-23] MEDS: Doxycycline 100 MG in Sodium Chloride 0.9% 100 ML IV SCH (12:36)
[2021-07-23] MEDS: Cholecalciferol (Vitamin D3) 25 MCG Tab PO SCH (12:36)
== END 2021-07-23 14:20 | disposition home or self-care (01) | DRG 177 ==
LOC: JD.ED 15:00 → JD.MS 17:18
PROVIDERS: ADMIT Internal Medicine; ATTEND Internal Medicine
PROC: XW033E5 Introduction of Remdesivir Anti-infective into Peripheral Vein, Percutaneous Approach, New Technology Group 5 (ICD-10-PCS; principal; 2021-07-19)
PROC: 3E0333Z Introduction of Anti-inflammatory into Peripheral Vein, Percutaneous Approach (ICD-10-PCS; 2021-07-19)
DX: U07.1 COVID-19 (principal); J12.82 Pneumonia due to coronavirus disease 2019; R09.02 Hypoxemia; J96.01 Acute respiratory failure with hypoxia; H54.7 Unspecified visual loss; I10 Essential (primary) hypertension; G47.30 Sleep apnea, unspecified; K59.09 Other constipation; K21.9 Gastro-esophageal reflux disease without esophagitis; M19.90 Unspecified osteoarthritis, unspecified site; I25.10 Atherosclerotic heart disease of native coronary artery without angina pectoris; G51.0 Bell's palsy; G47.00 Insomnia, unspecified; R31.29 Other microscopic hematuria; E87.6 Hypokalemia; E80.6 Other disorders of bilirubin metabolism; Z79.82 Long term (current) use of aspirin; Z79.899 Other long term (current) drug therapy; Z87.442 Personal history of urinary calculi; Z98.49 Cataract extraction status, unspecified eye; Z90.49 Acquired absence of other specified parts of digestive tract; Z79.02 Long term (current) use of antithrombotics/antiplatelets; Z95.5 Presence of coronary angioplasty implant and graft
CPT/HCPCS: 36415; 36600; 80053; 82553; 82803; 83615; 83735; 83880; 84484; 85025; 85379; 85610; 85730; 86140; 93005; 96374; 99285; J1100; J7042; J7050; 81001; 87040; 87070; 87077; 87186; 87205; 94640; 94667; 94668; 94762; 97110-GP; 97161-GP; 97530-GP; A9270-GY; J0696; J1650; J3490; J7620-GY; J8540

== ENCOUNTER 2021-07-28 14:20 | Emergency (ER) | payer MEDICARE, BC ==
[2021-07-28 14:30] VITALS: BP 149/77; PULSE 76
[2021-07-28] MEDS ORDERED: Ondansetron 4 MG/2 ML SDV IVPUSH ONE (14:51)
[2021-07-28] MEDS ORDERED: Sodium Chloride 0.9% 10 ML Syringe FLUSH PRN (14:51)
[2021-07-28] MEDS ORDERED: Sodium Chloride 0.9% 1,000 ML IV SCH (15:00)
--- NOTE | 2021-07-28 15:34 | CR ---
Chest: Portable view of the chest was obtained. Comparison: Prior chest x-ray of 07/18/21. Patchy increased density within both sides of the chest are seen. Overall distribution is similar to prior study but overall density has increased. No additional worsening is seen. Heart size and mediastinum are normal. Bony structures are grossly intact. Impression: 1. Diffuse increased density within both sides of the chest. Overall location is similar but density has increased from prior study presumably representing mild worsening. Please correlate if patient has positive COVID test. Diagnostic code #3
--- NOTE | 2021-07-28 15:53 | EDM.PDOC ---
ED HPI GENERAL MEDICAL PROBLEM - General Chief Complaint: Respiratory Problem Stated Complaint: SOB NAUSEA Time Seen by Provider: 07/28/21 14:23 Source of Information: Reports: Patient History Limitations: Reports: No Limitations - History of Present Illness INITIAL COMMENTS - FREE TEXT/NARRATIVE: The patient presents with a cough, shortness of breath and generalized weakness. The patient was diagnosed with COVID 19 on July 08. He was admitted to the hospital for 5 days and was discharged on Sunday. He was feeling good when he left. He has nausea, shortness of breath, cough, and generalized weakness. He has a history of HTN, cardiac stents, coronary artery disease, and sleep apnea. He has no history of asthma or COPD. He does not smoke. Onset: Gradual Duration: Week(s): (2) Severity: Moderate Improves with: Reports: None Worsens with: Reports: None Associated Symptoms: Reports: Cough, Nausea/Vomiting, Shortness of Breath. Denies: Chest Pain, Fever/Chills, Headaches - Related Data Allergies Allergy/AdvReac Type Severity Reaction Status Date / Time No Known Allergies Allergy Verified 07/28/21 14:29 Home Meds: Home Meds Aspirin [Ecotrin EC] 325 mg PO DAILY 02/15/16 [History] Clopidogrel [Plavix] 75 mg PO DAILY 02/15/16 [History] Metoprolol Succinate 100 mg PO DAILY 02/15/16 [History] Ramipril 10 mg PO DAILY 02/15/16 [History] atorvaSTATin Calcium [Atorvastatin Calcium] 80 mg PO DAILY 02/15/16 [History] Finasteride 5 mg PO DAILY 08/24/19 [History] Omeprazole Magnesium [Prilosec] 20 mg PO ASDIRECTED 08/24/19 [History] amLODIPine [Norvasc] 10 mg PO DAILY 08/24/19 [History] Benzonatate 1 - 2 tab PO Q8HR PRN 07/19/21 [History] Azithromycin 500 mg PO DAILY #5 tablet 07/23/21 [Rx] dexAMETHasone [Dexamethasone] 6 mg PO DAILY #4 tablet 07/23/21 [Rx] Ondansetron [Zofran ODT] 4 mg PO Q6H PRN #20 tab.dis 07/28/21 [Rx] Past Medical History HEENT History: Reports: Cataract, Impaired Vision, Other (See Below) Other HEENT History: wears glasses Cardiovascular History: Reports: Hypertension, Stents Respiratory History: Reports: Sleep Apnea Other Respiratory History: used to wear cpap-can't sleep well with it-doesn't wear. Gastrointestinal History: Reports: Chronic Constipation, GERD, Other (See Below) Other Gastrointestinal History: abnormal liver ultrasound, increased bilirubin Genitourinary History: Reports: Renal Calculus Musculoskeletal History: Reports: Arthritis Neurological History: Reports: Other (See Below) Other Neuro History: bain's palsy Psychiatric History: Reports: Other (See Below) Other Psychiatric History: insomnia - Infectious Disease History Infectious Disease History: Reports: Chicken Pox, Measles, Mumps, Novel Coronavirus - Past Surgical History HEENT Surgical History: Reports: Cataract Surgery Cardiovascular Surgical History: Reports: Coronary Artery Stent Other Cardiovascular Surgeries/Procedures: stent placed in 2002 GI Surgical History: Reports: Appendectomy, Colonoscopy Male Surgical History: Reports: Lithotripsy ([facility]) Social & Family History - Family History Family Medical History: No Pertinent Family History - Tobacco Use Tobacco Use Status *Q: Never Tobacco User Second Hand Smoke Exposure: No - Caffeine Use Caffeine Use: Reports: Coffee, Soda, Tea - Recreational Drug Use Recreational Drug Use: No - Living Situation & Occupation Living situation: Reports: Occupation: Retired ED ROS GENERAL - Review of Systems Review Of Systems: See Below Constitutional: Reports: Malaise, Weakness, Fatigue. Denies: Fever, Chills HEENT: Reports: No Symptoms Respiratory: Reports: Shortness of Breath, Cough Cardiovascular: Reports: No Symptoms Endocrine: Reports: No Symptoms GI/Abdominal: Reports: Nausea. Denies: Abdominal Pain, Diarrhea, Vomiting : Reports: No Symptoms Musculoskeletal: Reports: No Symptoms ED EXAM, GENERAL - Physical Exam Exam: See Below Exam Limited By: No Limitations General Appearance: Alert, No Apparent Distress Ears: Normal External Exam Nose: Normal Inspection Head: Atraumatic, Normocephalic Neck: Normal Inspection Respiratory/Chest: No Respiratory Distress, Decreased Breath Sounds Cardiovascular: Regular Rate, Rhythm, No Edema, No Murmur GI/Abdominal: Soft, Non-Tender, No Organomegaly, No Mass Back Exam: Normal Inspection Extremities: Normal Inspection #1 Interpretation EKG Date: 07/28/21 Time: 16:34 Rhythm: NSR Rate (Beats/Min): 68 [place]: LAD-Left [place] Deviation P-Wave: Present QRS: Normal ST-T: Normal QT: Normal Course - Vital Signs Last Recorded V/S: Last Vital Signs Temp 97 F 07/28/21 14:27 Pulse 76 07/28/21 14:27 Resp 18 07/28/21 14:27 BP 149/77 H 07/28/21 14:27 Pulse Ox 91 L 07/28/21 14:27 - Orders/Labs/Meds Orders: Active Orders 24 hr Category Date Time Status Cardiac Monitoring [RC] . DIRECTED Care 07/28/21 14:51 Active EKG Documentation Completion [RC] STAT Care 07/28/21 14:53 Active Oxygen Therapy [RC] PRN Care 07/28/21 14:51 Active Peripheral IV Care [RC] . DIRECTED Care 07/28/21 14:52 Active RT Post Treatment Assessment [RC] Click to Edit Care 07/28/21 16:32 Active RT Pre-Treatment Assessment [RC] Click to Edit Care 07/28/21 16:32 Active Sodium Chloride 0.9% [Normal Saline] 1,000 ml Med 07/28/21 15:00 Active IV .BOLUS Sodium Chloride 0.9% [Saline Flush] Med 07/28/21 14:51 Active 10 ml FLUSH ASDIRECTED PRN ED Antiemetic Medication Reflex [OM.PC] Stat Oth 07/28/21 14:52 Ordered Peripheral IV Insertion Adult [OM.PC] Stat Oth 07/28/21 14:51 Ordered Medication Orders Sodium Chloride (Normal Saline) 1,000 mls @ 1,000 mls/hr IV .BOLUS KEATON Last Admin: 07/28/21 15:15 Dose: 1,000 mls/hr Documented by: TERESA Sodium Chloride (Sodium Chloride 0.9% 10 Ml Syringe) 10 ml FLUSH ASDIRECTED PRN PRN Reason: Keep Vein Open Last Admin: 07/28/21 15:14 Dose: 10 ml Documented by: TERESA Labs: Laboratory Tests 07/28/21 07/28/21 07/28/21 Range/Units 15:12 15:12 15:12 WBC 11.01 H (4.23-9.07) K/mm3 RBC 4.84 (4.63-6.08) M/mm3 Hgb 15.2 D (13.7-17.5) gm/dl Hct 46.0 (40.1-51.0) % MCV 95.0 H (79.0-92.2) fl MCH 31.4 (25.7-32.2) pg MCHC 33.0 (32.2-35.5) g/dl RDW Std Deviation 46.4 H (35.1-43.9) fL Plt Count 259 (163-337) K/mm3 MPV 10.3 (9.4-12.3) fl Neut % (Auto) 76.5 H (34.0-67.9) % Lymph % (Auto) 9.1 L (21.8-53.1) % [place] % (Auto) 13.0 H (5.3-12.2) % Eos % (Auto) 0.1 L (0.8-7.0) Baso % (Auto) 0.1 (0.1-1.2) % Neut # (Auto) 8.43 H (1.78-5.38) K/mm3 Lymph # (Auto) 1.00 L (1.32-3.57) K/mm3 [place] # (Auto) 1.43 H (0.30-0.82) K/mm3 Eos # (Auto) 0.01 L (0.04-0.54) K/mm3 Baso # (Auto) 0.01 (0.01-0.08) K/mm3 PT 11.4 (9.7-12.0) SECONDS INR 1.03 APTT 24.0 (21.7-31.4) SECONDS D-Dimer, Quantitative 0.38 (0.19-0.50) mg/L Sodium 137 (136-145) mEq/L Potassium 4.2 (3.5-5.1) mEq/L Chloride 103 (98-107) mEq/L Carbon Dioxide 26 (21-32) mEq/L Anion Gap 12.2 (5-15) BUN 20 H (7-18) mg/dL Creatinine 1.3 (0.7-1.3) mg/dL Est Cr Clr Drug Dosing 45.20 mL/min Estimated GFR (MDRD) 54 (>60) mL/min BUN/Creatinine Ratio 15.4 (14-18) Glucose 133 H (70-99) mg/dL Lactic Acid (0.4-2.0) mmol/L Calcium 8.7 (8.5-10.1) mg/dL Total Bilirubin 3.6 H (0.2-1.0) mg/dL AST 25 (15-37) U/L ALT 56 (16-63) U/L Alkaline Phosphatase 99 (46-116) U/L Troponin I < 0.017 (0.00-0.056) ng/mL C-Reactive Protein <0.2 (<1.0) mg/dL NT-Pro-B Natriuret Pep (0-450) pg/mL Total Protein 6.2 L (6.4-8.2) g/dl Albumin 2.7 L (3.4-5.0) g/dl Globulin 3.5 gm/dL Albumin/Globulin Ratio 0.8 L (1-2) 07/28/21 07/28/21 Range/Units 15:12 15:48 WBC (4.23-9.07) K/mm3 RBC (4.63-6.08) M/mm3 Hgb (13.7-17.5) gm/dl Hct (40.1-51.0) % MCV (79.0-92.2) fl MCH (25.7-32.2) pg MCHC (32.2-35.5) g/dl RDW Std Deviation (35.1-43.9) fL Plt Count (163-337) K/mm3 MPV (9.4-12.3) fl Neut % (Auto) (34.0-67.9) % Lymph % (Auto) (21.8-53.1) % [place] % (Auto) (5.3-12.2) % Eos % (Auto) (0.8-7.0) Baso % (Auto) (0.1-1.2) % Neut # (Auto) (1.78-5.38) K/mm3 Lymph # (Auto) (1.32-3.57) K/mm3 [place] # (Auto) (0.30-0.82) K/mm3 Eos # (Auto) (0.04-0.54) K/mm3 Baso # (Auto) (0.01-0.08) K/mm3 PT (9.7-12.0) SECONDS INR APTT (21.7-31.4) SECONDS D-Dimer, Quantitative (0.19-0.50) mg/L Sodium (136-145) mEq/L Potassium (3.5-5.1) mEq/L Chloride (98-107) mEq/L Carbon Dioxide (21-32) mEq/L Anion Gap (5-15) BUN (7-18) mg/dL Creatinine (0.7-1.3) mg/dL Est Cr Clr Drug Dosing mL/min Estimated GFR (MDRD) (>60) mL/min BUN/Creatinine Ratio (14-18) Glucose (70-99) mg/dL Lactic Acid 1.6 (0.4-2.0) mmol/L Calcium (8.5-10.1) mg/dL Total Bilirubin (0.2-1.0) mg/dL AST (15-37) U/L ALT (16-63) U/L Alkaline Phosphatase (46-116) U/L Troponin I (0.00-0.056) ng/mL C-Reactive Protein (<1.0) mg/dL NT-Pro-B Natriuret Pep 257 (0-450) pg/mL Total Protein (6.4-8.2) g/dl Albumin (3.4-5.0) g/dl Globulin gm/dL Albumin/Globulin Ratio (1-2) Meds: Medications Generic Name Dose Route Start Last Admin Trade Name Freq PRN Reason Stop Dose Admin Sodium Chloride 1,000 mls @ 1,000 mls/hr 07/28/21 15:00 07/28/21 15:15 Normal Saline IV 1,000 mls/hr .BOLUS KEATON Administration Sodium Chloride 10 ml 07/28/21 14:51 07/28/21 15:14 Sodium Chloride 0.9% 10 Ml Syringe FLUSH 10 ml ASDIRECTED PRN Administration Keep Vein Open Discontinued Medications Generic Name Dose Route Start Last Admin Trade Name Freq PRN Reason Stop Dose Admin Albuterol 0 gm 07/28/21 16:32 Albuterol 6.7 Gm Inhaler INH 07/28/21 16:33 ONETIME ONE Ondansetron HCl 4 mg 07/28/21 14:51 07/28/21 15:14 Ondansetron 4 Mg/2 Ml Sdv IVPUSH 07/28/21 14:52 4 mg ONETIME ONE Administration - Re-Assessments/Exams Free Text/Narrative Re-Assessment/Exam: 07/28/21 15:54 I ordered an IV NS 1L bolus, zofran 4mg IV, labs, and CXR. 07/28/21 16:38 His CXR shows diffuse increased density within both sides of the chest. Overall location is similar but density has increased from prior study presumable representing mild worsening. Please correlate if patient has positive COVID test. 07/28/21 16:40 His WBC was elevated at 11.01. His PT, PTT and D-dimer are negative. His glucose is elevated at 133. His total bili is elevated at 3.6. Hs troponin and CRP are negative. His BNP is normal His EKG shows a NSR with no acute changes. 07/28/21 16:53 His lactic acid is normal. He feels better. I going to give him an albuterol inhaler and see if that helps. He will be following up with Helena Cooper tomorrow. Departure - Departure Time of Disposition: 16:55 Disposition: Home, Self-Care 01 Condition: Good Clinical Impression: COVID-19, Pneumonia due to COVID-19 virus - Discharge Information *PRESCRIPTION DRUG MONITORING PROGRAM REVIEWED*: Not Applicable *COPY OF PRESCRIPTION DRUG MONITORING REPORT IN PATIENT LILIANA: Not Applicable Prescriptions: Ondansetron [Zofran ODT] 4 mg PO Q6H PRN #20 tab.dis PRN Reason: Nausea\vomiting Referrals: Marlon Wilde PA-C [Primary Care Provider] - Forms: ED Department Discharge Additional Instructions: Drink plenty of fluids. Wear your oxygen as much as you can. Use the albuterol inhaler 2 puffs every 6 hours as needed for shortness of breath. Take the zofran every 6 hours as needed for nausea or vomiting. Follow up with your provider tomorrow. Please return if you are worse. Sepsis Event Note (ED) - Evaluation Sepsis Screening Result: No Definite Risk - Focused Exam Vital Signs: Vital Signs Temp Pulse Resp BP Pulse Ox 07/28/21 14:27 97 F 76 18 149/77 H 91 L - My Orders Last 24 Hours: My Active Orders 07/28/21 14:51 Cardiac Monitoring [RC] . DIRECTED Oxygen Therapy [RC] PRN Sodium Chloride 0.9% [Saline Flush] 10 ml FLUSH ASDIRECTED PRN Peripheral IV Insertion Adult [OM.PC] Stat 07/28/21 14:52 Peripheral IV Care [RC] . DIRECTED ED Antiemetic Medication Reflex [OM.PC] Stat 07/28/21 14:53 EKG Documentation Completion [RC] STAT 07/28/21 15:00 Sodium Chloride 0.9% [Normal Saline] 1,000 ml IV .BOLUS 07/28/21 16:32 RT Post Treatment Assessment [RC] Click to Edit RT Pre-Treatment Assessment [RC] Click to Edit - Assessment/Plan Last 24 Hours: My Active Orders 07/28/21 14:51 Cardiac Monitoring [RC] . DIRECTED Oxygen Therapy [RC] PRN Sodium Chloride 0.9% [Saline Flush] 10 ml FLUSH ASDIRECTED PRN Peripheral IV Insertion Adult [OM.PC] Stat 07/28/21 14:52 Peripheral IV Care [RC] . DIRECTED ED Antiemetic Medication Reflex [OM.PC] Stat 07/28/21 14:53 EKG Documentation Completion [RC] STAT 07/28/21 15:00 Sodium Chloride 0.9% [Normal Saline] 1,000 ml IV .BOLUS 07/28/21 16:32 RT Post Treatment Assessment [RC] Click to Edit RT Pre-Treatment Assessment [RC] Click to Edit
[2021-07-28] MEDS ORDERED: Albuterol 6.7 GM Inhaler INH ONE (16:32)
== END 2021-07-28 17:20 | disposition home or self-care (01) ==
LOC: JD.ED 14:20
DX: U07.1 COVID-19 (principal); J12.82 Pneumonia due to coronavirus disease 2019; I10 Essential (primary) hypertension; Z95.5 Presence of coronary angioplasty implant and graft; Z79.82 Long term (current) use of aspirin; Z79.899 Other long term (current) drug therapy
CPT/HCPCS: 36415; 71045; 80053; 83605; 83880; 84484; 85025; 85379; 85610; 85730; 86140; 93005; 96374; 99285; A9270; J2405; J7030

== ENCOUNTER 2022-06-24 09:14 | Emergency (ER) | payer MEDICARE, BC ==
[2022-06-24] MEDS ORDERED: Sodium Chloride 0.9% 1,000 ML IV ONE (09:25)
[2022-06-24 10:01] LABS: ESTIMATED GFR 62 mL/min (>60)
[2022-06-24 13:14] VITALS: BP 135/64; PULSE 59
== END 2022-06-24 13:13 | disposition home or self-care (01) ==
LOC: JD.ED 09:14
DX: H81.10 Benign paroxysmal vertigo, unspecified ear (principal); R53.1 Weakness; I10 Essential (primary) hypertension; K21.9 Gastro-esophageal reflux disease without esophagitis; Z86.16 Personal history of COVID-19; Z79.82 Long term (current) use of aspirin; Z79.899 Other long term (current) drug therapy; Z95.5 Presence of coronary angioplasty implant and graft
CPT/HCPCS: 36415; 70450; 80053; 81003; 82947; 83605; 85007; 85027; 93005; 96360; 99285; A9270; J7030; 93010; 99284

== ENCOUNTER 2023-04-21 06:41 | Emergency (ER) | payer MEDICARE, BC ==
[2023-04-21] MEDS ORDERED: Sodium Chloride 0.9% 10 ML Syringe FLUSH PRN (07:07)
[2023-04-21] MEDS ORDERED: Meclizine 25 MG Tab PO ONE (07:08)
[2023-04-21] MEDS ORDERED: Sodium Chloride 0.9% 1,000 ML IV SCH (07:15)
[2023-04-21 07:16] LABS: BASOPHILS ABSOLUTE AUTO 0.01 K/mm3 (0.01-0.08); BASOPHILS PERCENT AUTO 0.2 % (0.1-1.2); EOSINOPHILS PERCENT AUTO 1.8 (0.8-7.0); HEMATOCRIT 44.8 % (40.1-51.0); HEMOGLOBIN 15.2 gm/dl (13.7-17.5); IMMATURE GRAN ABSOLUTE AUTO 0.02 K/mm3 (0.00-0.10); IMMATURE GRAN PERCENT AUTO 0.4 % (<=1.0); LYMPHOCYTES ABSOLUTE AUTO 1.47 K/mm3 (1.32-3.57); LYMPHOCYTES PERCENT AUTO 26.4 % (21.8-53.1); MEAN CORPUSCULAR HEMOGLOBIN 32.3 pg (25.7-32.2); MEAN CORPUSCULAR HGB CONC 33.9 g/dl (32.2-35.5); MEAN CORPUSCULAR VOLUME 95.3 fl (79.0-92.2); MEAN PLATELET VOLUME 10.9 fl (9.4-12.3); MONOCYTES ABSOLUTE AUTO 0.62 K/mm3 (0.30-0.82); MONOCYTES PERCENT AUTO 11.2 % (5.3-12.2); NEUTROPHILS ABSOLUTE AUTO 3.34 K/mm3 (1.78-5.38); PLATELET COUNT,PLT 129 K/mm3 (163-337); WHITE BLOOD CELL COUNT,WBC 5.56 K/mm3 (4.23-9.07)
[2023-04-21 07:27] LABS: A/G RATIO 1.5 (1-2); ALBUMIN 3.8 g/dl (3.4-5.0); ANION GAP 12.7 (5-15); BILIRUBIN TOTAL 4.7 mg/dL (0.2-1.0); EST CRCL DRUG DOSING (CG) 40.66 mL/min; MAGNESIUM 1.9 mg/dL (1.8-2.4); POTASSIUM,K 3.7 mEq/L (3.5-5.1)
[2023-04-21 07:30] LABS: CREATININE 1.4 mg/dL (0.7-1.3); PROTEIN TOTAL,TP 6.4 g/dl (6.4-8.2)
[2023-04-21 08:41] VITALS: BP 151/87; PULSE 71
== END 2023-04-21 08:35 | disposition home or self-care (01) ==
LOC: JD.ED 06:41
DX: R55 Syncope and collapse (principal); R42 Dizziness and giddiness; I10 Essential (primary) hypertension; Z86.16 Personal history of COVID-19
CPT/HCPCS: 36415; 70450; 80053; 83735; 84484; 85025; 93005; 96360; 99284; A9270; J3490; J7030; 93010

== ENCOUNTER 2024-04-12 08:07 | Emergency (ER) | payer MEDICARE, BC ==
[2024-04-12] MEDS: Proparacaine 0.5% Ophth Soln 15 ML Bottle EYERT ONE (09:16)
[2024-04-12] MEDS: Ciprofloxacin 0.3% Ophth Soln 5 ML Bottle EYERT ONE (09:16)
[2024-04-12] MEDS: Fluorescein 1 MG Ophth Strip EYERT ONE (09:17)
[2024-04-12 09:20] VITALS: BP 143/81; PULSE 63
== END 2024-04-12 09:20 ==
LOC: JD.ED 08:07
DX: S05.01XA Injury of conjunctiva and corneal abrasion without foreign body, right eye, initial encounter (principal); E78.00 Pure hypercholesterolemia, unspecified; I10 Essential (primary) hypertension; Z86.16 Personal history of COVID-19; Z90.49 Acquired absence of other specified parts of digestive tract; W45.8XXA Other foreign body or object entering through skin, initial encounter
CPT/HCPCS: 99283; A9270; J3490